=== PATIENT | female | born 1945 | race Caucasian/White ===

== ENCOUNTER 2019-12-08 09:42 | Outpatient (CLI) | payer MEDICARE, SELFPAY ==
--- NOTE | ~2019-12-08 | XR_ITS ---
EXAMINATION: XR chest 2V DATE: 12/08/2019 10:05 INDICATION: Dyspnea. Hypertension. TECHNIQUE: Frontal and lateral views of the chest were obtained. COMPARISON: Chest 2 views 10/19/2015 FINDINGS: The chest demonstrates clear lungs without pneumonia, pleural effusion, or pneumothorax. Th e heart size is normal. There are surgical clips in left upper quadrant. IMPRESSION: 1. No acute cardiopulmonary disease. Reviewed, dictated and finalized at location A.
== END 2019-12-08 09:43 | disposition home or self-care (01) ==
LOC: ANHIMG 09:47
PROVIDERS: PCP Internal Medicine; Visit Provider Internal Medicine
DX: R05 Cough (principal); R06.00 Dyspnea, unspecified; I10 Essential (primary) hypertension
CPT/HCPCS: 71046

== ENCOUNTER 2019-12-11 08:52 | Outpatient (CLI) | payer MEDICARE, SELFPAY ==
--- NOTE | ~2019-12-11 | XR_ITS ---
EXAMINATION: XR UGIAC wo kub DATE: 12/11/2019 09:30 INDICATION: Cough. TECHNIQUE: The patient drank thick barium, gas-producing crystals, and thin barium. A total of 746 fl uoroscopic images of the esophagus, stomach, and proximal small bowel were obtained. Fluoroscopy expo sure time was 2.2 minutes. COMPARISON: None. FINDINGS: The esophagus is normal without mass or stricture. Esophageal motility is normal. Small hia nicol hernia which extends 4-5 cm cephalad to the level of the diaphragm. On oblique prone imaging appe ars to represent either a paraesophageal type or mixed sliding/paraesophageal type. There was an init ial episode of gastroesophageal reflux when changing from prone to supine position of a moderate amou nt of contrast. Additional provocative maneuvers elicited a single additional episode of minimal kelsea roesophageal reflux. Small diverticulum arising from the second portion of the duodenum. The stomach and proximal small bowel are otherwise normal. IMPRESSION: 1. Small likely either paraesophageal or mixed paraesophageal/sliding-type hiatal hernia with gastroe sophageal reflux. Reviewed, dictated and finalized at location A. IMPRESSION: 1. Small likely either paraesophageal or mixed paraesophageal/sliding-type hiat al hernia with gastroesophageal reflux.
== END 2019-12-11 08:53 | disposition home or self-care (01) ==
PROVIDERS: PCP Internal Medicine; Visit Provider Internal Medicine
DX: R05 Cough (principal); K44.9 Diaphragmatic hernia without obstruction or gangrene; K21.9 Gastro-esophageal reflux disease without esophagitis
CPT/HCPCS: 74246

== ENCOUNTER 2019-12-18 09:02 | Outpatient (CLI) | payer MEDICARE, SELFPAY ==
--- NOTE | ~2019-12-18 | MM_ITS ---
EXAMINATION: MM screening zhanna BI w abdoul HISTORY: Screening mammogram TECHNIQUE: Craniocaudal and mediolateral oblique 3-D tomosynthesis images were obtained and synthetic 2-D images were generated. CAD analysis was submitted and interpreted. COMPARISON: 06/03/2014 bilateral digital screening mammogram BREAST PARENCHYMAL COMPOSITION: The breasts are heterogeneously dense, which may obscure small masses . FINDINGS: There are scattered bilateral benign calcifications. Stable mild fibroglandular asymmetry. There is no evidence of suspicious mass, calcification, or architectural distortion to suggest malign charles in either breast. There has been no suspicious interval change. IMPRESSION: 1. No mammographic evidence of malignancy. 2. Recommend routine screening mammography in one year. BI-RADS Category 2: Benign finding(s). Reviewed, dictated and finalized at location A.
== END 2019-12-18 09:03 | disposition home or self-care (01) ==
PROVIDERS: PCP Internal Medicine; Visit Provider Internal Medicine
DX: Z12.31 Encounter for screening mammogram for malignant neoplasm of breast (principal)
CPT/HCPCS: 77063; 77067

== ENCOUNTER 2020-05-04 11:14 | Outpatient (CLI) | payer MEDICARE, SELFPAY ==
--- NOTE | ~2020-05-04 | XR_ITS ---
XR sinus min 3V 05/04/2020 11:43 Indication: Right-sided headaches Procedure: 5 views of the paranasal sinuses Comparison: No prior studies for comparison. Findings: No significant opacification of the paranasal sinuses. No air-fluid levels. Mild leftward n josé septal deviation. Mastoids are pneumatized. Orbits are intact. No definite orbital blowout fract ure. Impression: 1: No significant abnormality of the sinuses. Reviewed, dictated and finalized at location A. Impression: 1: No significant abnormality of the sinuses.
--- NOTE | ~2020-05-04 | XR_ITS ---
EXAMINATION: XR chest 2V 05/04/2020 11:43 INDICATION: Dyspnea PROCEDURE: PA and lateral views of the chest COMPARISON: Comparison to multiple prior studies sequentially, with oldest reviewed study dated 05/13. FINDINGS: The lungs are clear. The cardiomediastinal silhouette is within normal limits. There are no pleural effusions. There is no pneumothorax suspected. IMPRESSION: 1: NO ACUTE CARDIOPULMONARY DISEASE. Reviewed, dictated and finalized at location A.
== END 2020-05-04 11:15 | disposition home or self-care (01) ==
PROVIDERS: PCP Internal Medicine; Visit Provider Internal Medicine
DX: R06.00 Dyspnea, unspecified (principal); R09.81 Nasal congestion
CPT/HCPCS: 70220; 71046

== ENCOUNTER 2020-05-06 08:46 | Outpatient (CLI) | payer MEDICARE, SELFPAY ==
--- NOTE | 2020-05-12 14:19 | WPDPFTINT ---
PFT Interpretation PFT Interpretation: This PFT met all criteria for ATS standards and reproducibility FEV/FVC pre bronchodilator 71% which improved to 78% post bronchodilator FEV1 119% FVC 106% There was some improvement in post bronchodilator FEV1 TLC 109% of predicted RV 114% RV/TLC 43% DLCO 83% when adjusted for alveolar volume but not adjusted for hemoglobin Flow volume loops showed some end expiratory coving Impression: Mild airflow obstruction with reversibility. This may correspond with Asthma. Clinical correlation is advised.
== END 2020-05-06 08:47 | disposition home or self-care (01) ==
LOC: ANHPFT 08:48
PROVIDERS: PCP Internal Medicine; Visit Provider Internal Medicine
DX: R06.00 Dyspnea, unspecified (principal)
CPT/HCPCS: 94060; 94726; 94729

== ENCOUNTER 2020-08-30 02:30 | Outpatient (CLI) | payer MEDICARE, SELFPAY ==
[2020-08-30 18:38] LABS: SARS-CoV-2 RNA PCR Negative
== END 2020-08-30 02:31 | disposition home or self-care (01) ==
LOC: ANHCOVIDDT 02:30
PROVIDERS: PCP Internal Medicine; Visit Provider Internal Medicine Gastroenterology
DX: Z01.812 Encounter for preprocedural laboratory examination (principal); Z20.822 Contact with and (suspected) exposure to COVID-19
CPT/HCPCS: C9803; U0003; U0005

== ENCOUNTER 2020-09-02 02:23 | Day surgery (SDC) | payer MEDICARE, SELFPAY ==
[2020-08-25 10:18] VITALS: BMI 29.4
[2020-09-02 06:35] VITALS: BP 209/74; PULSE 71; RESP 20; TEMP 36.6; O2SAT 98
[2020-09-02] MEDS: LACTATED RINGERS 1,000 ML 150 ML IV CONT (06:54)
[2020-09-02 06:59] VITALS: BMI 30.4
[2020-09-02 07:02] VITALS: BP 171/70; PULSE 68
--- NOTE | 2020-09-02 07:46 | SUR.PREOP ---
Pt took home dose of metoprolol 25mg at [address] Cruz's order.
--- NOTE | 2020-09-02 07:52 | WPDANESEPPF ---
Anes - Initial Pre Proc Eval Procedure: Operation Date: 09/02/20 08:00 Proposed Procedures p Esophagogastroduodenoscopy - Lee Ashton MD Date/Time: 09/02/20 07:52 Surgeon: Lee Ashton MD Pre Op Diagnosis: Dysphagia Patient Data Age: 75 Gender: F Height: 5 ft 2 in Weight: 75.5 kg Last Vital Signs Temp 98 F 09/02/20 06:35 Pulse 68 09/02/20 07:02 Resp 20 09/02/20 06:35 BP 171/70 H 09/02/20 07:02 Pulse Ox 98 09/02/20 06:35 Allergies Allergy/AdvReac Type Severity Reaction Status Date / Time neomycin Allergy Intermediate Rash Verified 09/02/20 06:43 Home Medications Medication Instructions Recorded Confirmed Type cetirizine 10 mg tablet 5 mg PO DAILY PRN 11/30/19 08/25/20 History levothyroxine 50 mcg tablet 50 mcg PO DAILY #90 tablet 12/14/19 08/25/20 Rx meloxicam 15 mg tablet 15 mg PO DAILY #90 tablet 12/28/19 08/25/20 Rx pantoprazole 40 mg tablet,delayed 40 mg PO QAM #90 tablet 05/31/20 08/25/20 Rx release albuterol sulfate 90 mcg/actuation 2 inh INHALATION Q6H PRN #8.5 g 06/21/20 08/25/20 Rx aerosol inhaler metoprolol succinate 25 mg 25 mg PO DAILY #90 tablet 06/21/20 09/02/20 Rx tablet,extended release 24 hr umeclidinium 62.5 mcg-vilanterol 1 inh INHALATION DAILY #14 ea 07/21/20 08/25/20 Rx 25 mcg/actuation powdr for inhalation sucralfate 1 gram tablet 2 g PO BID #120 tablet 08/16/20 08/25/20 Rx azelastine 2 spray NASAL Q12H PRN 08/25/20 08/25/20 History losartan 100 mg PO DAILY 08/25/20 08/25/20 History rosuvastatin 10 mg PO DAILY 08/25/20 08/25/20 History Patient hx anesthesia problems: none Family hx anesthesia problems: none PMFSH Past Medical History Medical History (Updated 08/16/20 @ 11:02 by Jena Garcia [facility]) Benign essential hypertension BMI 29.0-29.9,adult BMI 30.0-30.9,adult Chronic cough Colon cancer screening Constipation Contact dermatitis Cough variant asthma DJD (degenerative joint disease), multiple sites PLATT (dyspnea on exertion) Encounter for Medicare annual wellness exam Encounter for screening mammogram for malignant neoplasm of breast Encounter to establish care Eustachian tube dysfunction Follow up Hyperlipidemia Hypothyroidism (acquired) Mild reactive airways disease On correction drug therapy Paraesophageal hernia Post menopausal syndrome Sliding hiatal hernia Surgical History Surgical History History of hernia surgery Paraesophageal hiatal hernia surgery. 2009 Hx of sinus surgery Family History Family History Mother Family history of lung cancer Dementia Father Family history of emphysema COPD Sibling ASHD (arteriosclerotic heart disease) Hx of myocardial infarction Social History Social History Smoking packs per day: 1.5 Smoking cigarettes per day: 30.0 Years smoked: 10 Smoking pack-years: 15.00 Smoking status: Former smoker Tobacco type: cigarettes Second hand tobacco smoke exposure: No Alcohol intake: never Substance use: never Substance use type: does not use Living arrangements: with family Spiritual care concerns: No Anes - Eval Final PreProcedure Day of Procedure 09/02/20 07:52 Patient weight: overweight Heart: regular rate and rhythm Lungs: clear to auscultation Airway: Mallampati scale class II Neurological: alert and oriented Last oral intake: >/= 8 hours ASA classification: III Emergent: no Anesthetic plan: proceed Anesthesia type and monitoring: general GIVS and standard monitoring Informed Consent: The patient's anesthetic plan and its attendant risks and benefits were discussed with the patient/family/POA. Questions were solicited and answers provided to the satisfaction of the patient/family/POA.
--- NOTE | 2020-09-02 08:08 | WPDGICN ---
Assessment and Plan Assessment and plan (1) Hiatal hernia: Code(s): K44.9 - Diaphragmatic hernia without obstruction or gangrene Status: Acute Assessment and Plan: recent upper GI suggest recurrent hiatal hernia. History of rather large paraesophageal hiatal hernia plan is to evaluate with endoscopy. (2) Epigastric abdominal pain: Code(s): R10.13 - Epigastric pain Status: Acute Assessment and Plan: Patient with epigastric pain along with difficulty swallowing. Plan is for EGD to assess more thoroughly patient does have a history of hiatal hernia repair in the past. Continue proton pump inhibitor. Carafate may supplement this intermittently. Further recommendations (3) History of hernia surgery: Code(s): Z98.890 - Other specified postprocedural states; Z87.19 - Personal history of other diseases of the digestive system Status: Acute GI Consult Note Consult date/time: 09/02/20 08:08 HPI: Alisa Baker is a 75 year old female Seen in evaluation at the request of Dr. Daniels. Patient has a history of paraesophageal hiatal hernia repair 10 years ago. At that time she had a cough and significant reflux. This improved greatly after hiatal hernia repair. Over the last 1 year she has noticed reflux symptoms. Occasional regurgitation. Occasional nausea. Dysphagia with food catching the mid substernal portion of the chest. Since December she is restarted proton pump inhibitor therapy. She had has had significant epigastric pain in over the last several weeks was placed on Carafate. She notices that this is helped her epigastric pain quite dramatically. Repeat barium swallow in December of 2019 revealed recurrent hiatal hernia. Because of persistent epigastric pain and rather significant hiatal hernia in the past follow-up EGD is anticipated at this time. As well as to evaluate her difficulty swallowing. Patient denies any weight loss or bleeding. Past medical history is significant for or diagnosis of asthma. She recently has had a recurrent cough raising the question whether this is asthma or acid reflux. Review of Systems Review of Systems: All systems reviewed & are unremarkable except as noted in HPI and below [facility] Past Medical History Medical History Benign essential hypertension BMI 29.0-29.9,adult BMI 30.0-30.9,adult Chronic cough Colon cancer screening Constipation Contact dermatitis Cough variant asthma DJD (degenerative joint disease), multiple sites PLATT (dyspnea on exertion) Encounter for Medicare annual wellness exam Encounter for screening mammogram for malignant neoplasm of breast Encounter to establish care Eustachian tube dysfunction Follow up Hyperlipidemia Hypothyroidism (acquired) Mild reactive airways disease On fpc drug therapy Paraesophageal hernia Post menopausal syndrome Sliding hiatal hernia Surgical History Surgical History History of hernia surgery Paraesophageal hiatal hernia surgery. 2009 Hx of sinus surgery Family History Family History Mother Family history of lung cancer Dementia Father Family history of emphysema COPD Sibling ASHD (arteriosclerotic heart disease) Hx of myocardial infarction Social History Social History Smoking packs per day: 1.5 Smoking cigarettes per day: 30.0 Years smoked: 10 Smoking pack-years: 15.00 Smoking status: Former smoker Tobacco type: cigarettes Second hand tobacco smoke exposure: No Alcohol intake: never Substance use: never Substance use type: does not use Living arrangements: with family Spiritual care concerns: No Meds Home Medications and Allergies Home Medications Medication Instructions Recorded Confirmed Type cetirizine
[2020-09-02] MEDS: BENZOCAINE (*SP) 60 ML SPRAY CAN (HURRICAINE) 1 SPRAY MUCOUS MEM (08:12)
[2020-09-02 08:19] VITALS: BP 148/76; PULSE 66; RESP 21; O2SAT 93
[2020-09-02 08:29] VITALS: BP 155/77; PULSE 65; RESP 17; O2SAT 94
[2020-09-02 08:39] VITALS: BP 164/79; PULSE 67; RESP 18; O2SAT 95
== END 2020-09-02 08:55 | disposition home or self-care (01) ==
PROVIDERS: Family Provider Family Medicine; PCP Internal Medicine; Visit Provider Internal Medicine Gastroenterology
PROC: 0DJ08ZZ Inspection of Upper Intestinal Tract, Via Natural or Artificial Opening Endoscopic (ICD-10-PCS; CPT 43235; principal; 2020-09-02 08:00)
DX: K44.9 Diaphragmatic hernia without obstruction or gangrene (principal); R10.13 Epigastric pain; R05 Cough; Z87.19 Personal history of other diseases of the digestive system; I10 Essential (primary) hypertension; K59.00 Constipation, unspecified; E78.5 Hyperlipidemia, unspecified; E03.9 Hypothyroidism, unspecified; J45.909 Unspecified asthma, uncomplicated; Z87.891 Personal history of nicotine dependence
CPT/HCPCS: 43235; J2704; J7120

== ENCOUNTER → 2021-02-27 11:53 | Outpatient (CLI) | payer MEDICARE, SELFPAY ==
--- NOTE | ~2021-02-27 | CT_ITS ---
EXAMINATION: CT chest high resolution wo ca DATE: 02/27/2021 12:12 INDICATION: Cough and shortness of breath TECHNIQUE: Computed tomography (CT) of the chest was performed without intravenous contrast. The dose -length product (DLP) was 322.75 mGy-cm. Automated exposure control and iterative reconstruction tech nique were employed. COMPARISON: None FINDINGS: There is moderate emphysema. There is a 4 mm nodule of the left lower lobe on image [address] to the major fissure. Mild dependent atelectasis is noted. There is no pleural effusion or pneum othorax. No pathologically enlarged thoracic lymph nodes are identified. The heart size is normal. Th ere is severe thoracic spondylosis. There is a moderate-sized sliding hiatal hernia. IMPRESSION: 1. Moderate emphysema. 2. Moderate-sized hiatal hernia. 3. 4 mm nodule of the left lower lobe. Consider follow-up CT in 12 months. Reviewed, dictated and finalized at location B.
== END ==
PROVIDERS: PCP Internal Medicine; Visit Provider Internal Medicine
DX: R05 Cough (principal); R06.02 Shortness of breath; J43.9 Emphysema, unspecified; K44.9 Diaphragmatic hernia without obstruction or gangrene; R91.8 Other nonspecific abnormal finding of lung field
CPT/HCPCS: 71250

== ENCOUNTER → 2021-04-28 09:55 | Outpatient (CLI) | payer MEDICARE, SELFPAY ==
--- NOTE | ~2021-04-28 | XR_ITS ---
EXAMINATION: XR thoracic spine 3V DATE: 04/28/2021 10:38 INDICATION: Thoracic back pain TECHNIQUE: AP, lateral and lateral swimmer's views of the thoracic spine were obtained. COMPARISON: 07/21/2014; CT, 02/27/2021 FINDINGS: Bone alignment is normal. There is no fracture. There is moderate loss of intervertebral di sc space height throughout the thoracic spine. The vertebral body heights are maintained. There appea r to be airspace opacities of the left lower lobe. IMPRESSION: 1. Moderate thoracic spondylosis without acute findings or significant interval change. 2. Possible left lower lobe opacities. Correlate for shortness of breath. Reviewed, dictated and finalized at location A.
== END ==
PROVIDERS: PCP Internal Medicine; Visit Provider Internal Medicine
DX: M54.9 Dorsalgia, unspecified (principal); G89.29 Other chronic pain; M47.814 Spondylosis without myelopathy or radiculopathy, thoracic region
CPT/HCPCS: 72072

== ENCOUNTER → 2022-01-11 13:15 | Outpatient (CLI) | payer MEDICARE, SELFPAY ==
--- NOTE | ~2022-01-11 | DEXA_ITS ---
Bone Density Report Name: KATELYNN LUONG Age: 76 Sex: Female Ethnicity: White Date of : 1945 Indication: postmenopausal; screening for osteoporosis; height loss; prior fracture; asthma or emphysema; Referring Provider: DALE POWELL Study: Bone densitometry was performed. Exam Date: January 11, 2022 Accession number: [id number] Bone Density: Region BMD T-score Z-score Classification AP Spine (L1, L2) 0.949 -0.3 2.0 Normal Femoral Neck (Left) 0.682 -1.5 0.6 Osteopenia Total Hip (Left) 0.870 -0.6 1.2 Normal Femoral Neck (Right) 0.631 -2.0 0.1 Osteopenia Total Hip (Right) 0.833 -0.9 0.9 Normal Total Hip Mean 0.852 -0.8 1.1 Normal World Health Organization criteria for BMD impression classify patients as: Normal (T-score at or above -1.0), Osteopenia (T-score between -1.0 and -2.5), or Osteoporosis (T-score at or below -2.5). 10-year Fracture Risk(1): Major Osteoporotic Fracture 19% Hip Fracture 4.2% Reported Risk Factors: [place] (), Neck BMD=0.631, BMI=29.3, previous fracture (1) FRAX(R) Version 3.08. Fracture probability calculated for an untreated patient. Fracture probability may be lower if the patient has received treatment. Previous Exams: Region Exam Age BMD T-score BMD Change BMD Change Date g/cm2 vs Baseline vs Previous AP Spine(L1, L2) 01/11/2022 76 0.949 -0.3 -0.038* 0.018 06/24/2018 73 0.931 -0.4 -0.057* -0.057* 06/03/2014 69 0.988 0.1 Total Hip(Left) 01/11/2022 76 0.870 -0.6 -0.014 -0.007 06/24/2018 73 0.877 -0.5 -0.007 -0.007 06/03/2014 69 0.884 -0.5 Total Hip(Right) 01/11/2022 76 0.833 -0.9 -0.039* -0.011 06/24/2018 73 0.844 -0.8 -0.028* -0.028* 06/03/2014 69 0.871 -0.6 *Denotes significance at 95% confidence level, LSC for AP Spine = 0.022 g/cm2, LSC for Total Hip = 0.027 g/cm2 Clinical Information Provided by Patient: Has had a low trauma fracture Has used the following medications: Vitamin D, Calcium Has the following medical conditions: Asthma or Emphysema Patient maximum height was 64 Menopause Age: 57 Drinks caffeinated beverages Onset of menses at age 14 Number of children 2 Impression: The patient has low bone mass, based on the Right Femoral Neck T-score. The patient has an estimated ten-year risk of hip fracture of 4.2% and an estimated ten-year ri
== END ==
PROVIDERS: PCP Internal Medicine; Visit Provider Internal Medicine
DX: Z78.0 Asymptomatic menopausal state (principal); M85.851 Other specified disorders of bone density and structure, right thigh; M85.852 Other specified disorders of bone density and structure, left thigh
CPT/HCPCS: 77080

== ENCOUNTER → 2022-02-28 13:50 | Outpatient (CLI) | payer MEDICARE, SELFPAY ==
--- NOTE | ~2022-02-28 | XR_ITS ---
XR lumbar spine min 4V DATE: 02/28/2022 14:37 INDICATION: Right hip pain TECHNIQUE: AP, lateral, bilateral oblique views and coned lateral lumbosacral view COMPARISON: 12/31/2011 lumbar spine FINDINGS: Diffuse osteopenia. Mild dextroscoliosis of the lumbar spine. The lumbar and included lower thoracic pedicles are intact. No fracture or bone destruction is detect ed. Moderate degenerative disc disease at L1-2. Severe degenerative disc disease at L2-3 and L3-4 with mild retrolisthesis. Moderate degenerative disc disease at L4-5. L5-S1 interspace appears relatively well preserved. Degenerative changes apophyseal joints of the lower lumbar and lumbosacral area. The sacroiliac joints appear normal. IMPRESSION: Osteopenia Mild dextro scoliosis Multilevel degenerative disc disease, most severe at L2-3 and L3-4, with mild retrolisthesis at these 2 levels Reviewed, dictated and finalized at location B. IMPRESSION: Osteopenia Mild dextro scoliosis Multilevel degenerative disc disease, most severe at L2-3 and L3-4, with mild r etrolisthesis at these 2 levels
--- NOTE | ~2022-02-28 | CT_ITS ---
EXAMINATION:CT diagnostic chest wo con DATE: 02/28/2022 15:07 INDICATION: Solitary pulmonary nodule. TECHNIQUE: Computed tomography (CT) of the chest was performed without intravenous contrast. Automate d exposure control and iterative reconstruction technique were employed. The dose-length product (DLP ) was 77.42 mGy-cm. COMPARISON: Chest CT 02/27/2021 FINDINGS: There is moderate emphysema. There is mild atelectasis bilaterally. There is a stable 4 mm nodule at left major fissure. No pleural effusion. The heart size is normal. No pericardial effusion. There is a moderate-sized sliding hiatal hernia. There is severe thoracic spondylosis. IMPRESSION: 1. Stable 4 mm pulmonary nodule, likely benign. 2. Moderate emphysema. 3. Moderate-sized sliding hiatal hernia. Reviewed, dictated and finalized at location A.
--- NOTE | ~2022-02-28 | XR_ITS ---
XR hip RT min 3V w AP pelvis DATE: 02/28/2022 14:37 INDICATION: Right hip pain TECHNIQUE: AP and lateral views COMPARISON: None FINDINGS: No fracture or dislocation, avascular necrosis or bone destruction of the right hip. Right hip joint space appears relatively well preserved. The pubic symphysis and sacral iliac joints are intact. Degenerative disc disease at L4-5 and L5-S1. IMPRESSION: No significant abnormality right hip. Degenerative disc disease at L4-5 and L5-S1 Reviewed, dictated and finalized at location B.
== END ==
PROVIDERS: PCP Internal Medicine; Visit Provider Internal Medicine
DX: Z12.2 Encounter for screening for malignant neoplasm of respiratory organs (principal); Z87.891 Personal history of nicotine dependence; M47.817 Spondylosis without myelopathy or radiculopathy, lumbosacral region; M41.9 Scoliosis, unspecified; M25.551 Pain in right hip
CPT/HCPCS: 71250; 72110; 73502

== ENCOUNTER 2022-08-27 12:41 | Outpatient (CLI) | payer MEDICARE, SELFPAY ==
--- NOTE | ~2022-08-27 | XR_ITS ---
EXAMINATION: XR chest 2V 08/27/2022 13:01 INDICATION: Dyspnea PROCEDURE: 2 view chest COMPARISON: Comparison to multiple prior studies sequentially, with oldest reviewed study dated 04/2016. FINDINGS: The lungs are clear. The cardiomediastinal silhouette is within normal limits. There are no pleural effusions. There is no pneumothorax suspected. There is a hiatal hernia. IMPRESSION: 1: NO ACUTE CARDIOPULMONARY DISEASE. Reviewed, dictated and finalized at location A. 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
[2022-08-27 13:14] LABS: Basophils Absolute Auto 0.1 K/mm3 (0.0-0.1); Basophils Percent Auto 1.1 % (0.2-1.2); Eosinophils Absolute Auto 0.2 K/mm3 (0-0.3); Eosinophils Percent Auto 2.7 % (0-4.4); Hematocrit 39.4 % (37.0-47.0); Hemoglobin 12.8 g/dL (12.0-15.0); Immature Granulocyte Absolute 0.02 K/mm3 (0.00-0.031); Immature Granulocyte Percent A 0.3 % (0-0.5); Lymphocytes Absolute Auto 1.64 K/mm3 (0.9-3.2); Lymphocytes Percent Auto 22.1 % (18.3-44.2); Mean Corpuscular HGB Conc 32.5 g/dl (32-36); Mean Corpuscular Hemoglobin 31.3 pg (26-34); Mean Corpuscular Volume 96.3 fl (80-100); Mean Platelet Volume 9.2 fl (7.4-10.4); Monocytes Absolute Auto 0.8 K/mm3 (0.1-0.6); Monocytes Percent Auto 10.1 % (2.6-8.5); Neutrophils Absolute Auto 4.7 K/mm3 (1.3-6.7); Neutrophils Percent Auto 63.7 % (45.5-73.1); Platelet Count Result 219 k/mm3 (150-375); Red Blood Count 4.09 M/mm3 (4.2-5.4); Red Cell Distribution Width 12.9 % (11.5-14.5); White Blood Count 7.4 K/mm3 (4.5-10.0)
== END 2022-08-27 12:42 | disposition home or self-care (01) ==
PROVIDERS: PCP Internal Medicine; Visit Provider Internal Medicine
DX: R06.00 Dyspnea, unspecified (principal)
CPT/HCPCS: 36415; 71046; 85025

== ENCOUNTER → 2022-08-30 08:45 | Outpatient (CLI) | payer MEDICARE, SELFPAY ==
--- NOTE | ~2022-08-30 | CT_ITS ---
EXAMINATION: CT sinus wo con DATE: 08/30/2022 09:01 INDICATION: Chronic sinusitis TECHNIQUE: Computed tomography (CT) of the paranasal sinuses was performed without contrast. Iterativ e reconstruction technique was employed. Exam dose: 260.54 mGy-cm total exam DLP. COMPARISON: 05/04/2020 radiographs of paranasal sinuses 01/18/2011 CT sinuses FINDINGS: There is interval postoperative change since 01/18/2011: There are bilateral nasal antral win dows with resection of the uncinate processes. Bilateral partial ethmoidectomies. There is leftward bowing of the nasal septum. The nasal turbinates are moderately prominent in size b ilaterally. Intralamellar cell of left middle nasal turbinate. There is diffuse mild to moderate mucoperiosteal thickening of the right maxillary sinus. There is a fluid level in the left maxillary sinus and minimal mucoperiosteal thickening of the left maxillary s inus. The frontal sinuses and sphenoid sinuses are normally developed and aerated. The mastoid air cells are normally developed and aerated bilaterally. IMPRESSION: Status post bilateral partial ethmoidectomies and nasal antral windows Mild to moderate mucoperiosteal thickening of the right major sinus, minimal mucoperiosteal thickenin g of left maxillary sinus Fluid level in left maxillary sinus Leftward bowing of nasal septum Intralamellar cell of left middle nasal turbinate and prominent soft tissues swelling of the nasal tu rbinates Reviewed, dictated and finalized at Location A. Reviewed, dictated and finalized at location L. 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
== END ==
PROVIDERS: PCP Internal Medicine; Visit Provider Internal Medicine
DX: J32.9 Chronic sinusitis, unspecified (principal); R05.9 Cough, unspecified
CPT/HCPCS: 70486

== ENCOUNTER 2022-10-16 09:00 | Outpatient (NON) | payer MEDICARE, SELFPAY | END 2022-10-16 09:01 | disposition home or self-care (01) | LOC: ANHLAB 10-17 10:09 | PROVIDERS: PCP Internal Medicine; Visit Provider Nurse Practitioner | DX: L81.2 Freckles (principal) | CPT/HCPCS: 88305 ==

== ENCOUNTER 2022-12-21 00:59 | Day surgery (SDC) | payer MEDICARE, SELFPAY ==
[2022-12-04 10:45] VITALS: BMI 29.7
--- NOTE | 2022-12-04 10:53 | PC.NURSE ---
PRE-OP INSTRUCTIONS, PLEASE READ CAREFULLY Report to the Outpatient Waiting Room, entrance under the green pavilion located off [facility], at time _0630_ on date _12/21/22_. Planned Procedure Time: _0830_. Time changes happen often and if your time is changed the preop area will call you the afternoon before. - You and your visitor will be asked to self-screen and do not enter if you have any COVID symptoms. - A mask is optional within the hospital at this time. Patients may have clear liquids (water, carbonated beverages, clear teas, apple juice) until 3 hours prior to surgery (0530 AM) with a maximum of 20 ounces. - No food from midnight until time of surgery Take the following medications with a SIP of water the morning of surgery: _DILTIAZEM, LEVOTHYROXINE, ANORO INHALER, _ DO NOT STOP ANY OF YOUR OTHER PRESCRIPTION MEDICATIONS PRIOR TO SURGERY ?EXCEPT THE FOLLOWING Medications to discontinue - _MELOXICAM PER DR. BARRERA'S INSTRUCTIONS_ Date to take last dose Please no make-up, nail spanish, hairspray, perfume, deodorant, or body powder the day of surgery. No jewelry (including any body piercings) or valuables the day of surgery, leave them at home. Please take a shower or bath the night before, or the morning of, surgery with an antibacterial soap. Wear comfortable, loose fitting clothing. - Jewelry must be removed prior to entering the operating room. Rings and piercings that are not removed may be cut off. - The hospital will not accept responsibility for valuables. - Please leave all valuables, including medications, at home the day of surgery. If you are going home after surgery, a licensed parts driver must drive you home. - NO public transportation without another adult if you receive anesthesia. - We recommend that an adult stay with you for 24 hours following discharge. - We also recommend that you do not drive, make important decision, drink alcoholic beverages, or take any drugs that were not prescribed by your health care provider for at least 24 hours after your discharge time. Follow any additional instructions given to you from your surgeon. If you or anyone in your household have experienced Covid symptoms in the past week, please notify your surgeon or the nurse liaison at the phone number below for possible testing. Telephone instructions given to _PATIENT_and asked if any additional questions and then verbalized understanding. Patient advised to call surgeon office or pre surgery nurse liaison [phone] if any additional questions.
[2022-12-21] VITALS (8 sets, daily range): BP systolic 95–149; BP diastolic 46–62; PULSE 69–85; RESP 12–18; TEMP 36.7–36.8; O2SAT 93–97
--- NOTE | ~2022-12-21 | XR_ITS ---
XR surgery orthopedic Pain management procedure TECHNIQUE: Fluoroscopy used during first metatarsal arthrodesis performed by [Ankit Phillips JR MD] on 12/21/2022. 17 seconds of fluoroscopy with 2 fluoroscopic images captured. FINDINGS: Images demonstrate arthrodesis of the first metatarsophalangeal joint with sideplate and sc rews. There are additional screws at the second metatarsal neck. Correlate with procedure note. IMPRESSION: Fluoroscopy used during first metatarsal arthrodesis. Reviewed, dictated and finalized at location B.
--- NOTE | 2022-12-21 06:49 | WPDANESEPPF ---
Anes - Initial Pre Proc Eval Procedure: Operation Date: 12/21/22 07:30 Proposed Procedures p Arthrodesis First Metatarsal Phalangeal Joint Right Foot, Austyn Shortening Second Metatarsal Osteotomy Right Foot, Reconstruction Angular Deformity Second Toe Right Foot - Ankit Phillips JR, MD Date/Time: 12/21/22 06:49 Surgeon: Ankit Phillips JR, MD Pre Op Diagnosis: (1) Arthritits First MPJ Right Foot Patient Data Age: 77 Gender: F Height: 1.56 m Weight: 70.45 kg Last Vital Signs Temp 36.7 C 12/21/22 06:25 Pulse 85 12/21/22 06:25 Resp 16 12/21/22 06:25 BP 149/56 H 12/21/22 06:25 Pulse Ox 95 12/21/22 06:25 O2 Del Method Room Air 12/21/22 06:25 Allergies Allergy/AdvReac Type Severity Reaction Status Date / Time neomycin Allergy Intermediate Rash Verified 12/21/22 06:38 Home Medications Medication Instructions Recorded Confirmed Type zinc 50 mg tablet 50 mg PO DAILY 01/18/21 12/21/22 History calcium carbonate 600 mg calcium 600 mg PO BID 01/17/22 12/21/22 History (1,500 mg) tablet cholecalciferol (vitamin D3) 10 10 mcg PO BID 01/17/22 12/21/22 History mcg (400 unit) tablet montelukast 10 mg tablet 10 mg PO DAILY #90 tabs 04/11/22 12/21/22 Rx (Singulair) diltiazem HCl 240 mg capsule,24 480 mg PO DAILY #180 caps 08/09/22 12/21/22 Rx hr,extended release losartan 100 mg tablet See Rx Instructions .Route 08/10/22 12/21/22 Rx .COMPLEX #90 tabs pantoprazole 40 mg tablet,delayed See Rx Instructions .Route 08/20/22 12/21/22 Rx release .COMPLEX #90 tabs umeclidinium 62.5 mcg-vilanterol 1 inh inhalation DAILY 90 days 08/22/22 12/21/22 Rx 25 mcg/actuation powdr for #180 ea inhalation (Anoro Ellipta) rosuvastatin 10 mg tablet See Rx Instructions .Route 10/01/22 12/21/22 Rx .COMPLEX #90 tabs azelastine 137 mcg (0.1 %) nasal See Rx Instructions .Route 12/03/22 12/21/22 Rx spray aerosol .COMPLEX #30 mL levothyroxine 50 mcg tablet See Rx Instructions .Route 12/03/22 12/21/22 Rx .COMPLEX #90 tabs meloxicam 15 mg tablet See Rx Instructions .Route 12/03/22 12/21/22 Rx .COMPLEX #90 tabs Home Nebulizer machine #1 ea 12/12/22 Rx albuterol sulfate 2.5 mg/3 mL 2.5 mg (3 mL) inhalation Q6H PRN 12/12/22 12/21/22 Rx (0.083 %) solution for nebulization Wheezing #90 mL Patient hx anesthesia problems: none Family hx anesthesia problems: none Results Review: All pre-operative results and documents have been reviewed as part of the pre-operative evaluation. [facility] Past Medical History Medical History Actinic keratosis Anxiety attack Benign essential hypertension BMI 29.0-29.9,adult BMI 30.0-30.9,adult Cerumen impaction Chronic bronchitis Chronic cough Chronic maxillary sinusitis Colon cancer screening Contact dermatitis Cough variant asthma Dermatitis Dietary counseling and surveillance (06/21/15) Dizziness DJD (degenerative joint disease), multiple sites PLATT (dyspnea on exertion) Dysfunction of both eustachian tubes Encounter for Medicare annual wellness exam Encounter for screening for lipoid disorders Essential (primary) hypertension Eustachian tube dysfunction Expiratory wheezing Follow up Hyperlipidemia Hypothyroidism (acquired) Hypothyroidism, unspecified Impacted cerumen of left ear Low back pain Lung nodule Lymphadenopathy of head and neck Needs flu shot On prison drug therapy Otalgia of both ears Paraesophageal hernia Post menopausal syndrome Post-menopausal Right hand pain Seasonal allergies Sliding hiatal hernia Thoracic spondylosis Vitamin D deficiency, unspecified Surgical History Surgical History History of hernia surgery Paraesophageal hiatal hernia surgery. 2009 Hx of sinus surgery Family History Family History Mother Family history of lung cancer Dementia
[2022-12-21] MEDS: LACTATED RINGERS 1,000 ML 30 ML IV CONT ×2 (06:52→09:16)
--- NOTE | 2022-12-21 07:19 | WPDHPUPDATE1 ---
History and Physical Update Update Date/Time: 12/21/22 07:19 History and Physical has been reviewed, including an updated exam of the patient. There are NO changes in the patient's condition. Risks, benefits, and alternatives have been discussed and questions answered. Patient agrees to proceed with procedure.
--- NOTE | 2022-12-21 07:26 | WPDANESPNB ---
Anes - Peripheral Nerve Block Date/Time: 12/21/22 07:26 I have discussed with the patient/family/POA the placement of a peripheral nerve block for post-operative pain management, including associated risks, benefits, complications, and side effects. Alternative methods of post-operative analgesia were detailed. Questions were solicited and answers provided to the satisfaction of the patient/family/POA. Time-Out: A pre-procedural Time-Out was completed immediately before starting the procedure and confirmed: Patient Identification, Site, Procedure, Patient Position and the Availability of Requisite Equipment. Clinical Indications: Acute post-operative pain management requested by the operative surgeon. Nerve Block Insertion Note Anes-nerve block: posterior fossa sciatic right and other (saphenous) Patient position: supine Skin prep: chlorhexidine Needle: 22 gauge, stimulating, insulated echogenic needle. Needle length: 80 mm Technique: nerve stimulation lost at (mA) (0.35) Injectate: bupivacaine 0.5% with epi 5 mcg/ml (25cc no epi popliteal 7 cc saphenous) and dexamethasone (mg) (8) Observations: tolerated well Complications: none Procedure start time:: 718 Procedure end time:: 724
[2022-12-21] MEDS: ceFAZolin 2 GM/D5W 50 ML 2 GM/50 ML BAG IVPB (07:30)
--- NOTE | 2022-12-21 09:09 | W.PM.PROC2 ---
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 Arthrodesis of the first metatarsal phalangeal joint right foot 2. Austyn Shortening second metatarsal osteotomy right foot Surgeon Ankit Phillips JR, ROCIO Anesthesia General and Regional Indications Painful right forefoot Findings Very soft bone present to the first metatarsal phalangeal joint Description of Procedure PROCEDURE IN DETAIL: Under mild sedation, the patient was brought into the operating room, placed on the operating table in supine position. A pneumatic ankle tourniquet was placed about the patient's ipsilateral ankle. Following general anesthesia and a popliteal fossa block, the foot was then scrubbed, prepped, and draped in the usual aseptic manner. An Esmarch bandage was then used to exsanguinate the patient's foot and the pneumatic ankle tourniquet was then inflated. Surgery began in the following manner: Attention was directed to the dorsal aspect of the 1st metatarsophalangeal joint where the hallux was noted to be laterally deviated with abutment against the second digit. There was significant rigidity to the first metatarsal phalangeal joint as the hallux was scarred in an abducted position. I made a linear l incision over the first metatarsal phalangeal joint The incision was continued deep down through the subcutaneous tissues using sharp and blunt dissection. All bleeders were cauterized as necessary. At this point, the dissection was continued down to the level of the periosteum and capsular structures overlying the 1st metatarsophalangeal joint. A full length periosteum and capsular incision was made just medial to the extensor hallucis longus tendon. The periosteum and capsular structures were freed from the base of the proximal phalanx as well as the distal 1st metatarsal. At this point, the 1st metatarsophalangeal joint was noted to be severely hypertrophied and also with almost complete denudation of cartilage that was degenerative. All hypertrophic bone was resected and smoothed out with a power bur. Next, I utilized the reamer system for the [place] 28 first metatarsal phalangeal joint to prepare and shape the distal metatarsal and base of the proximal phalanx in a cup and cone fashion. I flushed the area thoroughly with copious amounts of sterile saline. Next, a 2-0 drill bit was used to further fenestrate the distal 1st metatarsal as well as the base of the proximal phalanx in order to allow fusion across the 1st metatarsophalangeal joint. The bone was very soft and had poor perfusion. I decided to pack the joint with [place] 28 DBM. A large steel plate was used to make sure that the hallux was in a rectus position both in the sagittal plane as well as the frontal plane. Excellent position of the hallux was noted. Next, a [place] 28 small 1st metatarsal phalangeal joint was placed atop the 1st metatarsophalangeal joint held in position with [place] wires. Utilizing standard principles and techniques, the 2 distal drill holes were drilled and two 2.7 mm fully-threaded locking screws were driven from dorsal to plantar holding the distal aspect of the plate intact, during implantation of the distal lateral screw a fracture of the proximal phalanx developed due to the torque involved with the screw fixation. This was manually reduced and the locking screw was used to hold the fracture fragment adequately. At this point, the [place] compression system was utilized to drill eccentrically along the proximal dynamic screw hole, I implanted a 3.5mm non locking screw from dorsal to planar, prior to complete engagement of the screw to the plate the olive wires and the temporary fixation was removed and the screw fully driven to engage the plate. Excellent compression was noted intraoperatively and
== END 2022-12-21 10:56 | disposition home or self-care (01) ==
PROVIDERS: PCP Internal Medicine; Visit Provider Podiatrist Foot & Ankle Surgery
PROC: (CPT 28750; principal; 2022-12-21 07:30)
DX: M19.071 Primary osteoarthritis, right ankle and foot (principal); M24.477 Recurrent dislocation, right toe(s); G89.18 Other acute postprocedural pain; I10 Essential (primary) hypertension; J45.909 Unspecified asthma, uncomplicated; E78.5 Hyperlipidemia, unspecified; E03.9 Hypothyroidism, unspecified; E55.9 Vitamin D deficiency, unspecified; Z87.891 Personal history of nicotine dependence; Z79.51 Long term (current) use of inhaled steroids
CPT/HCPCS: 28750; 28308; 64450; 64445; 99199; J0690; J1100; J1170; J2250; J2405; J2704; J3010; J7120

== ENCOUNTER → 2023-09-03 08:56 | Outpatient (CLI) | payer MEDICARE, SELFPAY ==
--- NOTE | ~2023-09-03 | CT_ITS ---
EXAMINATION: CT diagnostic chest wo con DATE: 09/03/2023 09:13 INDICATION: Personal history of nicotine dependence TECHNIQUE: Computed tomography (CT) of the chest was performed without intravenous contrast. The dose -length product was 83.88 mGy-cm. Automated exposure control and iterative reconstruction technique w ere employed. COMPARISON: CT dated 02/28/2022 FINDINGS: Moderate size hiatal hernia. There is atherosclerosis of the aorta and coronary arteries. N o significant pleural or pericardial effusion. No thoracic lymphadenopathy. There is severe emphysema . There is dependent atelectasis. There is a 5 mm lingular nodule, image 79, not definitely seen on p rior examination. No endobronchial lesions. Moderate thoracic spondylosis. No significant soft tissue abnormality. No thoracic lymphadenopathy. The upper abdomen is unremarkable. IMPRESSION: 1. Lingular nodule measuring 5 mm, new since prior examination. Follow-up six-month interval CT chest recommended. 2: Moderate hiatal hernia. Reviewed, dictated and finalized at location L. NG MACHINE OPERATOR DOUBLE END IMPRESSION: 1. Lingular nodule measuring 5 mm, new since prior examination. Follow-up six-m onth interval CT chest recommended. 2: Moderate hiatal hernia.
== END ==
PROVIDERS: PCP Internal Medicine; Visit Provider Internal Medicine
DX: R91.1 Solitary pulmonary nodule (principal); K44.9 Diaphragmatic hernia without obstruction or gangrene; Z87.891 Personal history of nicotine dependence
CPT/HCPCS: 71250

== ENCOUNTER 2023-09-12 08:11 | Outpatient (CLI) | payer MEDICARE, SELFPAY ==
--- NOTE | ~2023-09-12 | MM_ITS ---
EXAMINATION: MM screening zhanna BI w abdoul HISTORY: Screening TECHNIQUE: Craniocaudal and mediolateral oblique 3-D tomosynthesis images were obtained and synthetic 2-D images were generated. CAD analysis was submitted and interpreted. COMPARISON: Comparison to multiple prior studies sequentially, with oldest reviewed study dated 05/13. BREAST PARENCHYMAL COMPOSITION: Dense: The breasts are heterogeneously dense, which may obscure small masses FINDINGS: Bilateral breast asymmetries and calcifications are stable. There is no evidence of suspici ous mass, calcification, or architectural distortion to suggest malignancy in either breast. There sánchez s been no suspicious interval change. IMPRESSION: 1. No mammographic evidence of malignancy. 2. Recommend routine screening mammography in one year. BI-RADS Category 2: Benign finding(s). Reviewed, dictated and finalized at location A. ET TAKER FERRYBOAT
== END 2023-09-12 08:12 | disposition home or self-care (01) ==
LOC: ANHIMG 08:14
PROVIDERS: PCP Internal Medicine; Visit Provider Internal Medicine
DX: Z12.31 Encounter for screening mammogram for malignant neoplasm of breast (principal)
CPT/HCPCS: 77063; 77067

== ENCOUNTER → 2023-10-08 11:05 | Outpatient (CLI) | payer MEDICARE, SELFPAY ==
--- NOTE | ~2023-10-08 | MR_ITS ---
EXAMINATION: MR brain/brain stem wo/w con DATE: 10/08/2023 12:03 INDICATION: Trigeminal neuralgia. TECHNIQUE: Magnetic resonance imaging (MRI) of the brain and brainstem was performed without and with 15 mL MultiHance intravenous contrast. COMPARISON: CT sinuses 08/30/22. FINDINGS: There is no intracranial hemorrhage, acute infarction, or abnormal intracranial mass lesion . The ventricles are normal in size. There is minimal mucosal thickening in the paranasal sinuses. Th ere are likely changes of ocular lens replacement surgeries. The trigeminal nerves are normal. No vas cular loop compression. There are trace mastoid effusions. IMPRESSION: 1. Normal brain. Normal trigeminal nerves. No vascular loop compression. Reviewed, dictated and finalized at location A. ESALE ACCOUNT MANAGER
== END ==
PROVIDERS: PCP Internal Medicine; Visit Provider Internal Medicine
DX: G50.0 Trigeminal neuralgia (principal)
CPT/HCPCS: 70553; A9577

== ENCOUNTER 2024-02-20 01:15 | Day surgery (SDC) | payer MEDICARE, SELFPAY ==
--- NOTE | 2024-02-20 12:29 | WPDANESEPPF ---
Anes - Initial Pre Proc Eval Procedure: Operation Date: 02/20/24 13:30 Proposed Procedures p Colonoscopy - Nasir Del Cid MD Date/Time: 02/20/24 12:29 Surgeon: Nasir Del Cid MD Pre Op Diagnosis: Other fecal abnormalities Patient Data Age: 78 Gender: F Height: Weight: Allergies Allergy/AdvReac Type Severity Reaction Status Date / Time neomycin Allergy Intermediate Rash Verified 02/20/24 12:28 Home Medications Medication Instructions Recorded Confirmed Type zinc 50 mg tablet 50 mg PO DAILY 01/18/21 02/06/24 History calcium carbonate 600 mg PO BID 01/17/22 02/06/24 History cholecalciferol (vitamin D3) 10 10 mcg PO BID 01/17/22 02/06/24 History mcg (400 unit) tablet azelastine 137 mcg (0.1 %) nasal See Rx Instructions .Route 12/03/22 02/06/24 Rx spray .COMPLEX #30 mL Home Nebulizer machine #1 ea 12/12/22 02/06/24 Rx albuterol sulfate 90 mcg/actuation 1 puff inhalation Q4H PRN 06/03/23 02/06/24 Rx aerosol inhaler shortness of breath or wheezing #6.7 grams pantoprazole 40 mg tablet,delayed See Rx Instructions .Route 08/23/23 02/06/24 Rx release .COMPLEX #90 tabs hyxvxmnznek-eiclgsdmw-pfc C-Mn 100 cap PO DAILY #90 caps 08/29/23 02/06/24 Rx capsule (Glucosamine-Chondroitin Complex capsule) umeclidinium 62.5 mcg-vilanterol 1 inh inhalation DAILY please d/c 09/05/23 02/06/24 Rx 25 mcg/actuation powdr for trelegy 90 days #180 ea inhalation (Anoro Ellipta) hydrochlorothiazide 12.5 mg tablet 12.5 mg PO DAILY #90 tabs 10/07/23 02/06/24 Rx budesonide 0.25 mg/2 mL suspension See Rx Instructions .Route 10/14/23 02/06/24 Rx for nebulization .COMPLEX #60 mL rosuvastatin 10 mg tablet See Rx Instructions .Route 11/04/23 02/06/24 Rx .COMPLEX #90 tabs levothyroxine 50 mcg tablet See Rx Instructions .Route 12/02/23 02/06/24 Rx .COMPLEX #90 tabs nortriptyline 25 mg capsule 25 mg PO QHS #30 caps 12/10/23 02/06/24 Rx albuterol sulfate 2.5 mg/3 mL 2.5 mg (3 mL) inhalation Q6H PRN 01/17/24 02/06/24 Rx (0.083 %) solution for nebulization copd #90 mL losartan 100 mg tablet See Rx Instructions .Route 01/17/24 02/06/24 Rx .COMPLEX #90 tabs meloxicam 15 mg tablet See Rx Instructions .Route 01/17/24 02/06/24 Rx .COMPLEX #90 tabs diltiazem HCl 240 mg capsule,24 See Rx Instructions .Route 01/27/24 02/06/24 Rx hr,extended release .COMPLEX #180 caps Patient hx anesthesia problems: none Family hx anesthesia problems: none Results Review: All pre-operative results and documents have been reviewed as part of the pre-operative evaluation. [facility] Past Medical History Medical History Abnormal CT scan, sinus Actinic keratosis Anxiety attack Benign essential hypertension BMI 28.0-28.9,adult BMI 29.0-29.9,adult BMI 30.0-30.9,adult Cerumen impaction Change in heart murmur Chronic bronchitis Chronic cough Chronic maxillary sinusitis Colon cancer screening Contact dermatitis Cough variant asthma Dermatitis Dietary counseling and surveillance (06/21/15) Dizziness DJD (degenerative joint disease), multiple sites PLATT (dyspnea on exertion) Dysfunction of both eustachian tubes Encounter for Medicare annual wellness exam Encounter for routine adult health examination with abnormal findings Encounter for routine adult health examination without abnormal findings Encounter for screening for lipoid disorders Essential (primary) hypertension Eustachian tube dysfunction Expiratory wheezing Follow up Hyperlipidemia Hypothyroidism (acquired) Hypothyroidism, unspecified Impacted cerumen of left ear Low back pain Lung nodule Lymphadenopathy of head and neck Needs flu shot 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
[2024-02-20 12:30] VITALS: BMI 28.9
[2024-02-20 12:32] VITALS: BP 139/63; PULSE 78; RESP 20; TEMP 36.3; O2SAT 94
[2024-02-20] MEDS: LACTATED RINGERS 1,000 ML 150 ML IV CONT (12:40)
--- NOTE | 2024-02-20 12:52 | PM.HPGS ---
History of Present Illness History of Present Illness Consent: Risks, benefits, and alternatives have been discussed and questions answered. Patient agrees to proceed with procedure. Chief complaint: Other fecal abnormalities Narrative: Alisa Baker is a 78 year old female here with + cologuard, had colonoscopy but years ago Review of Systems Review of Systems: All systems reviewed & are unremarkable except as noted in HPI and below PMFSH Past Medical History Medical History Abnormal CT scan, sinus Actinic keratosis Anxiety attack Benign essential hypertension BMI 28.0-28.9,adult BMI 29.0-29.9,adult BMI 30.0-30.9,adult Cerumen impaction Change in heart murmur Chronic bronchitis Chronic cough Chronic maxillary sinusitis Colon cancer screening Contact dermatitis Cough variant asthma Dermatitis Dietary counseling and surveillance (06/21/15) Dizziness DJD (degenerative joint disease), multiple sites PLATT (dyspnea on exertion) Dysfunction of both eustachian tubes Encounter for Medicare annual wellness exam Encounter for routine adult health examination with abnormal findings Encounter for routine adult health examination without abnormal findings Encounter for screening for lipoid disorders Essential (primary) hypertension Eustachian tube dysfunction Expiratory wheezing Follow up Hyperlipidemia Hypothyroidism (acquired) Hypothyroidism, unspecified Impacted cerumen of left ear Low back pain Lung nodule Lymphadenopathy of head and neck Needs flu shot On usp drug 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 2010 Hx of sinus surgery S/P bunionectomy S/P foot surgery, right Family History Family History Mother Family history of lung cancer Dementia Father Family history of emphysema COPD Asthma Sibling ASHD (arteriosclerotic heart disease) Hx of myocardial infarction Heart disease Social History Social History Smoking packs per day: 2 Smoking cigarettes per day: 40.0 Years smoked: 10 Smoking pack-years: 20.00 Smoking status: Former smoker Tobacco type: cigarettes Second hand tobacco smoke exposure: No Additional smoking assessment comments: QUIT 1992~ Alcohol intake: never Substance use: never Substance use type: does not use Lack of Transportation: No Lack of Food: Never True Current Housing: I Have Housing Concerned About Future Housing: No Difficulty Paying Gas/Electric Bills: No Difficulty Paying for Meds: No Currently Unemployed: No Education: High School Diploma/GED Difficulty w/ Childcare or Family Care: No Living arrangements: with family Gender identity (if verbalized by the patient): Female Spiritual care concerns: No Meds Home Medications and Allergies Home Medications Medication Instructions Recorded Confirmed Type zinc 50 mg tablet 50 mg PO DAILY 01/18/21 02/06/24 History calcium carbonate 600 mg PO BID 01/17/22 02/06/24 History cholecalciferol (vitamin D3) 10 10 mcg PO BID 01/17/22 02/06/24 History mcg (400 unit) tablet azelastine 137 mcg (0.1 %) nasal See Rx Instructions .Route 12/03/22 02/06/24 Rx spray .COMPLEX #30 mL Home Nebulizer machine #1 ea 12/12/22 02/06/24 Rx albuterol sulfate 90 mcg/actuation 1 puff inhalation Q4H PRN 06/03/23 02/06/24 Rx aerosol inhaler shortness of breath or wheezing #6.7 grams pantoprazole 40 mg tablet,delayed See Rx Instru
[2024-02-20 13:25] VITALS: BP 99/41; PULSE 57; RESP 18; O2SAT 94
[2024-02-20 13:35] VITALS: BP 107/54; PULSE 59; RESP 16; O2SAT 99
[2024-02-20 13:45] VITALS: BP 122/61; PULSE 60; RESP 20; O2SAT 100
== END 2024-02-20 13:52 | disposition home or self-care (01) ==
PROVIDERS: PCP Internal Medicine; Visit Provider Internal Medicine Gastroenterology
PROC: 0DJD8ZZ Inspection of Lower Intestinal Tract, Via Natural or Artificial Opening Endoscopic (ICD-10-PCS; CPT 45378; principal; 2024-02-20 13:30)
DX: D12.3 Benign neoplasm of transverse colon (principal); K63.5 Polyp of colon; I10 Essential (primary) hypertension; E78.5 Hyperlipidemia, unspecified; E03.9 Hypothyroidism, unspecified; R73.03 Prediabetes; R05.3 Chronic cough; J32.0 Chronic maxillary sinusitis; J45.909 Unspecified asthma, uncomplicated; M43.04 Spondylolysis, thoracic region; L57.0 Actinic keratosis; E55.9 Vitamin D deficiency, unspecified; Z79.51 Long term (current) use of inhaled steroids; Z98.890 Other specified postprocedural states; Z87.891 Personal history of nicotine dependence; Z80.1 Family history of malignant neoplasm of trachea, bronchus and lung; Z82.49 Family history of ischemic heart disease and other diseases of the circulatory system
CPT/HCPCS: 45380; 45385; 88305; J7120

== ENCOUNTER 2024-03-12 08:11 | Outpatient (CLI) | payer MEDICARE, SELFPAY ==
--- NOTE | ~2024-03-12 | CT_ITS ---
CT Scan of the Chest without Contrast: Clinical Indication: Pulmonary nodule Technique: Contiguous sections were acquired throughout the chest without intravenous contrast. Dose reduction technique was used on this scan by utilizing automated exposure control and iterative recon struction technique. The dose-length product (DLP) was 87.70 mGy-cm. COMPARISON: 09/03/2023 Findings: There is no evidence of any significant mediastinal, hilar or axillary lymphadenopathy. The mediastin al soft tissues appear normal. There is no evidence of pleural or pericardial effusion. Stable lingular nodule, likely focal scarring. No other pulmonary nodule seen. Mild to moderate upper lobe emphysema present. Images through the upper abdomen reveal [id number] hiatal hernia. Impression: Stable lingular nodule, likely focal scarring. Mild to moderate upper lobe emphysema. Reviewed, dictated and finalized at [facility]. Impression: Stable lingular nodule, likely focal scarring. Mild to moderate upper lobe emphysema.
== END 2024-03-12 08:12 ==
PROVIDERS: PCP Internal Medicine; Visit Provider Internal Medicine
DX: R91.1 Solitary pulmonary nodule (principal); J43.9 Emphysema, unspecified
CPT/HCPCS: 71250

== ENCOUNTER 2024-10-08 10:17 | Outpatient (CLI) | payer MEDICARE, SELFPAY ==
[2024-10-08 10:41] LABS: Basophils Percent Auto 0.8 % (0.2-1.2); Eosinophils Percent Auto 0.8 % (0-4.4); Hematocrit 38.3 % (37.0-47.0); Hemoglobin 12.6 g/dL (12.0-15.0); Immature Granulocyte Absolute 0.01 K/mm3 (0.00-0.031); Immature Granulocyte Percent A 0.3 % (0-0.5); Lymphocytes Absolute Auto 1.08 K/mm3 (0.9-3.2); Lymphocytes Percent Auto 29.6 % (18.3-44.2); Mean Corpuscular HGB Conc 32.9 g/dl (32-36); Mean Corpuscular Hemoglobin 31.2 pg (26-34); Mean Corpuscular Volume 94.8 fl (80-100); Mean Platelet Volume 8.7 fl (7.4-10.4); Monocytes Absolute Auto 0.6 K/mm3 (0.1-0.6); Monocytes Percent Auto 17.5 % (2.6-8.5); Neutrophils Absolute Auto 1.9 K/mm3 (1.3-6.7); Platelet Count Result 181 k/mm3 (150-375); Red Blood Count 4.04 M/mm3 (4.2-5.4); Red Cell Distribution Width 12.8 % (11.5-14.5); White Blood Count 3.7 K/mm3 (4.5-10.0)
[2024-10-08 11:18] LABS: Influenza A QL RT-PCR Positive (Negative); Influenza B QL RT-PCR Negative (Negative); RSV RNA, RT-PCR Negative (Negative); SARS-CoV-2 RNA PCR Negative (Negative)
== END 2024-10-08 10:18 | disposition home or self-care (01) ==
PROVIDERS: PCP Internal Medicine; Visit Provider Internal Medicine
DX: R05.9 Cough, unspecified (principal); R50.9 Fever, unspecified; R68.89 Other general symptoms and signs
CPT/HCPCS: 36415; 71046; 85025; 87637

== ENCOUNTER 2024-12-02 13:16 | Outpatient (CLI) | payer MEDICARE, SELFPAY ==
--- NOTE | ~2024-12-02 | CT_ITS ---
CT Scan of the Chest without Contrast: Clinical Indication: Cough Technique: Contiguous sections were acquired throughout the chest without intravenous contrast. Dose reduction technique was used on this scan by utilizing automated exposure control and iterative recon struction technique. The dose-length product (DLP) was 217.50 mGy-cm. COMPARISON: 03/12/2024 Findings: There is no evidence of any significant mediastinal, hilar or axillary lymphadenopathy. The mediastin al soft tissues appear normal. There is no evidence of pleural or pericardial effusion. The lungs are clear. No pulmonary nodules or infiltrates are noted. Moderate to advanced emphysema. Images through the upper abdomen reveal moderate hiatal hernia. Impression: Moderate to advanced emphysema. Moderate hiatal hernia. Reviewed, dictated and finalized at location . Impression: Moderate to advanced emphysema. Moderate hiatal hernia.
== END 2024-12-02 13:17 | disposition home or self-care (01) ==
LOC: GOSHIMG 13:17
PROVIDERS: PCP Internal Medicine; Visit Provider Internal Medicine
DX: J43.9 Emphysema, unspecified (principal); K44.9 Diaphragmatic hernia without obstruction or gangrene; J42 Unspecified chronic bronchitis
CPT/HCPCS: 71250

== ENCOUNTER 2025-05-26 13:47 | Outpatient (CLI) | payer MEDICARE, SELFPAY ==
--- NOTE | ~2025-05-26 | XR_ITS ---
MODIFIED ESOPHAGRAM HISTORY: Dysphagia. TECHNIQUE: Modified barium esophagram was performed on 05/26/2025. I administered fluoroscopy and performed the exam with speech pathologist. Patient was seated for lateral fluoroscopic imaging for ingestion of thin liquids, pudding, solids and quantified amounts, followed by thin liquids in uncontrolled amounts. This was recorded on tape. A single fluoroscopic spot image was also recorded. The DAP for this procedure was 1.407 Gycm2. The amount of fluoroscopy time used during this procedure was 2.2 minutes. FINDINGS: Oral stage: Adequate function. Pharyngeal stage: Adequate function. Cervical/esophageal stage: Adequate function. IMPRESSION: Patient tolerated regular consistency oral feedings in the upright position. Please correlate with speech pathologist findings and specific feeding recommendations. Reviewed, dictated and finalized at location A. IMPRESSION: Patient tolerated regular consistency oral feedings in the upright position. Please correlate with speech pathologist findings and specific feedi ng recommendations.
--- NOTE | 2025-05-26 15:00 | REHSTMBS ---
Assessment and note entered by Maria Del Carmen Guillen, INSPECTOR [employer]UMIN[employer]AT Modified Barium Swallow Evaluation Feeding Type Recommended Oral Food Consistency Regular, Level 7 Liquid Consistency Thin (0) ST Clinical Summary The patient is an 80-year-old female who is referred for a modified barium swallow study due to reported persistent cough, thickness in the throat, and hoarse vocal quality. Patient states that she experiences the cough with and without PO intake. She reports symptoms has been ongoing for the past year, although worsened approximately 3 months ago. The patient medical history is significant for COPD and asthma. Patient reports she changed medication for her asthma in February. Patient denies history of pneumonia or bronchitis. The patient was positioned in a lateral view and presented the following consistencies: 5cc thin liquid, cup trails thin liquid, pudding mixed with barium paste, and cracker coated with barium paste. Oral phase: When presented 5cc thin liquid, thin liquid via cup sip, pudding mixed with barium paste, and cracker coated with barium paste oral preparation and transit was within functional limits. Pharyngeal phase: When presented all of the above consistencies, swallow initiation was timely without viewed aspiration or penetration. The pudding and cracker trials was viewed to have trace residue in the pyriform sinus. Important to note patient did have two episodes of coughing throughout administration of PO trials, although no penetration or aspiration was observed. Overall , patient demonstrated a safe and efficient swallow on all consistencies. Patient may benefit from ENT consult considering ongoing cough and change in vocal quality. Recommend: 1) Regular Diet: Level 7 and 2) Thin Liquids: Level 0 3) Patient may benefit from ENT consult considering ongoing cough and change in vocal quality
--- OUTSIDE RECORDS SUMMARY | 2025-05-26 16:01 | XMS_ITS | Clinical Summary ---
Author Organization [facility] Address [address] [facility] [place] [place] [address] Care Team Providers Care Medical Imaging Director Name Role Phone Octavio Daniels MD Primary Care Provider [phone] Source Comments [facility],non-owned Affiliates and Associated Physician Practices is amultiple site organization consisting of ambulatory clinics and hospital sitesin [place], [place], [place] and [place]. This disclosure is being madepursuant to the Care Everywhere program and may not contain all information available regarding this patient. Last updated 18.[facility] Allergies Active Allergy Reactions Criticality Noted Date Comments Neomycin Rash Medium 03/06/2018 Medications * Be aware that medications may not be up to date on this document. Alwaysverify current medications with the patient. 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 Gender Identity Not on file Sexual Orientation Not on file Last Filed Vital Signs Vital Sign Reading Time Taken Comments Blood Pressure 120/88 03/06/2018 4:18 PM CDT Pulse 71 03/06/2018 4:18 PM CDT Temperature 37.2 C (98.9 F) 03/06/2018 4:18 PM CDT Respiratory Rate 16 03/06/2018 4:18 PM CDT Oxygen Saturation 96% 03/06/2018 4:18 PM CDT Inhaled Oxygen Concentration - - Weight 47.6 kg (105 lb) 03/06/2018 4:18 PM CDT Height 157.5 cm (5' 2) 03/06/2018 4:18 PM CDT Body Mass Index 19.2 03/06/2018 4:18 PM CDT Plan of Treatment Health Maintenance Due Date Last Done Comments BONE DENSITY TESTING 1945 MEDICARE AWV 12 MONTHS 1945 HEPATITIS C SCREENING 05/08/1965 DTAP/TDAP/TD VACCINES (1 - Tdap) 1966 PNEUMOCOCCAL VACCINE 50+ (1 of 1 - PCV) 1997 ZOSTER VACCINE (1 of 2) 1997 Respiratory Syncytial Virus (RSV) Vaccine Pt: or over 60 yrs (1 - 1-dose 75+ series) 2022 DEPRESSION SCREENING 08/12/2024 COVID-19 VACCINE (1 - 2023-2 5 season) 2025 INFLUENZA VACCINE (#1) 2025 HEPATITIS B VACCINE Aged Out No longe r eligible based on patient's age to complete this topic HIB VACCINE Aged Out No longer eligi ble based on patient's age to complete this topic HPV VACCINE Aged Out No longer eligi ble based on patient's age to complete this topic MENINGOCOCCAL (Group B) VACC INE SHARED DECISION-MAKING Aged Out No longer eligibl e based on patient's age to complete this topic MENINGOCOCCAL GROUPS A/C/Y/W VACCINE Aged Out No longer eligible b ased on patient's age to complete this topic Insurance MEDICARE MEDICARE MEDICARE * Guarantor: KATELYNN BAKER Account Type Relation to Patient Date of Phone Billing Address Personal/Family [address] [place] [address] MEDICARE [facility] * Guarantor: KATELYNN BAKER Account Type Relation to Patient Date of Phone Billing Address Personal/Family [address] [place] [address] MEDICARE [facility] * Guarantor: KATELYNN BAKER Account Type Relation to Patient Date of Phone Billing Address Personal/Family [address] [place] [address] MEDICARE ANTHEM Member Subscriber Plan / Payer (Ef fective for All Dates) Name:Katelynn Baker Member ID:Not on file Relation to Subscriber:Self Name:Katelynn Baker Subscriber ID:Not on file Payer ID:[id number] (NAIC) Type:Commercial Address: [place] [phone] Care Teams Medical Imaging Director Relationship Specialty Start Date End Date Octavio Daniels MD [address] [place] [address] PCP - General 10/30/22
--- OUTSIDE RECORDS SUMMARY | 2025-05-26 16:01 | XMS_ITS | Clinical Summary ---
Author Organization [facility] [address] Address [address] [place] [address] Care Team Providers Care Vegetables Cook Name Role Phone Octavio Powell MD Primary Care Provider Allergies Active Allergy Reactions Criticality Noted Date Comments Neomycin Rash Medium 08/11/2018 Niacin Medications levothyroxine sodium (TIROSINT) 50 mcg capsule take 1 capsule by oral route every day 0 0 6 Active meloxicam (MOBIC) 15 mg tablet Take 1 tablet by mouth daily. 0 8 Active metoprolol XL (TOPROL-XL) 25 mg 24 hr tablet TAKE 1 TABLET BY MOUTH ONCE DAILY 90 tablet 3 9 Active terbinafine (LamiSIL) 250 mg tablet Take 250 mg by mouth Take 1 tablet every other week. 0 9 Active rosuvastatin (CRESTOR) 10 mg tablet Take 10 mg by mouth daily 0 Active cetirizine (ZyrTEC) 10 mg tablet Take 10 mg by mouth daily Active mometasone-form oterol (DULERA 100) 100-5 mcg/actuation inhaler Inhale 2 puffs 2 (two) times a day Rinse mouth with water after use. Do not swallow. Active losartan (COZAAR) 100 mg tablet Take 1 tablet (100 mg total) by mouth daily 5 Active albuterol 2.5 mg /3 mL (0.083 %) nebulizer solution INHALE 1 VIAL PER NEBULIZER EVERY 6 HOURS NEEDED FOR COPD. 5 Active benzonatate (TESSALON) 200 mg capsule TAKE 1 CAPSULE BY MOUTH THREE TIMES DAILY NEEDED FOR COUGH 5 Active diltiazem (TIAZAC) 240 mg 24 hr capsule Take 2 capsules (480 mg total) by mouth daily 5 Active hydroCHLOROthia zide 12.5 mg tablet 5 Active nortriptyline (PAMELOR) 10 mg capsule [address] (PROTONIX) 40 mg EC tablet Take 1 tablet (40 mg total) by mouth daily 5 Active budesonide/glyc opyr/formoterol (BREZTRI AEROSPHERE INHAL) Inhale Active losartan (COZAAR) 50 mg tablet TAKE 1 TABLET BY MOUTH ONCE DAILY 90 tablet 3 9 05/17/20 25 Discontinu ed(Patient Reported) Active Problems Problem Noted Date Diagnosed Date PLATT (dyspnea on exertion) 05/17/2025 Chest pressure 05/17/2025 Essential hypertension 05/17/2025 Dyslipidemia 05/17/2025 Abnormal finding on cardiovascular stress test 1 Encounters Date Type Department Care Team Description 05/17/2025 2:00 PM CDT Office Visit [facility] Cardiology [address] [address] [address] [place] [address] Lu Meier MD PLATT (dyspnea on exertion) (Primary Dx); Chest pressure; Essential hypertension; Dyslipidemia; Abnormal finding on cardiovascular stress test 05/14/2025 Telephone [facility] [address] [facility] [address] [place] [phone] Lu Meier MD Scheduling Appointments 05/06/2025 8:15 AM CDT Ancillary Procedure [facility] Cardiology at [address] [place] [address] Shortness of breath from Last 3 Months Surgical History Surgery Date Site/Laterality Comments STOMACH SURGERY hernia repair and put lung back where it belonged TONSILLECTOMY Medical History Medical History Date Comments Hypertension Hypertension Hx Other Medical hypothyroidism Hx Other Medical hiatal hernia s urgery Hx Other Medical Gastric reflux Asthma Chest pain Thyroid disease Shortness of breath Family History Medical History Relation Name Comments Other Brother 2 Alive and well; Emphysema Father Emphysema; Lung cancer Mother Cancer, lung; Relation Name Status Comments Brother 1 Alive Brother 2 Father Mother Social History Tobacco Use Types Packs/Day Years Used Date Smoking Tobacco: Former Smokeless Tobacco: Never Alcohol Use Standard Drinks/Week Comments No 0 (1 standard drink = 0.6 oz pur e alcohol) Comments Unknown Sex and Gender Information Value Date Recorded Sex Assigned at Not on file 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 Gender Identity Not on file Sexual Orientation Not on file Obstetrics History Last Filed Vital Signs Vital Sign Reading Time Taken Comments Blood Pressure 122/60 05/17/2025 1:44 PM CDT Pulse 73 05/17/2025 1:44 PM CDT Temperature - - Respiratory Rate - - Oxygen Saturation 91% 05/17/2025 1:44 PM CDT Inhaled Oxygen Concentration - - Weight 76.6 kg (168 lb 12.8 oz) 05/17/2025 1:44 PM CDT Height 157.5 cm (5' 2) 05/17/2025 1:44 PM CDT Body Mass Index 30.87 05/17/2025 1:44 PM CDT Plan of Treatment Health Maintenance Due Date Last Done Comments Depression Screening 1945 Fall Risk Assessment 1945 Hepatitis C Screening 1945 Osteoporosis Screening-Bone Density Scan 1945 Hepatitis B Screening 1965 Zoster Vaccine (1 of 2) 1997 Well Visit 65+ 2012 Pneumococcal vaccine 65+ (2 of 2 - PPSV23, PCV20, or PCV21) 08/01/2018 06/06/2018 Influenza Vaccine (#1) 2025 9, 06/06/2018, 07/24/2017, Additional history exists DTaP/Tdap/Td Vaccine (2 - Td or Tdap) 05/25/2029 05/25/2019 Procedures Procedure Name Priority Date/Time Associated Diagnosis Comments NM MPI SPECT (REST AND/OR STRESS) MULTIPLE STUDIES Schedule Routine, Read Routine (OP Routine) 05/06/2025 9:42 AM CDT Shortness of breath from Last 3 Months Results * NM MPI SPECT (Rest and/or Stress) Multiple Studies (05/06/2025 9:42 AM CDT) Anatomical Region Laterality Modality Body N/A Electrocardiogra phy 05/06/2025 8:15 AM CDT Narrative 05/06/2025 2:00 PM CDT [facility] Cardiology [address], [place] [address] [address] [facility] [address], [place] [address], [place] [address] P:[phone] P:[phone] MPI Imaging Report Patient Name: KATELYNN LUONG A : 1945 Study Date: 05/06/2025 8:15:00 AM Sex: F [facility] Provider: OCTAVIO POWELL Height(Cm): 160 BSA: Weight(Kg): 74.5 Heart Rate: 122 BMI: 29.1 Order Provider: OCTAVIO POWELL PHYSICIAN: Primary Care Physician: Dr. Powell. [facility] Physician: none. Stress Supervision: Kwadwo Sorenesn M.D. Stress Interpreting Physician: Kwadwo Sorensen M.D. Image Interpreting Physician: Kwadwo Sorensen M.D. PROCEDURES: Pharmacologic SPECT Report: Myocardial perfusion imaging with Tc99M Sestamibi SPECT at rest and stress post regadenoson (Lexiscan) infusion. INDICATIONS: Chest Pain, Hypertension, High Cholesterol, Former Smoker, and R06.02 Shortness of breath. FINDINGS: Procedural Findings: One day rest/stress was used. Tc99m Sestamibi injected IV at rest was 10.7 millicuries 32.9 millicuries of Tc99M Sestamibi injected IV during Lexiscan stress Lexiscan 0.4mg given IV over 10 seconds with low level exercise: 1.2 MPH Pharmacologic stress related symptoms and/or side effects during infusion include chest pain 5/10 and shortness of breath. Symptoms were resolved with rest and pain completely resolved 11:30 post Lexiscan administration. Patient declined NTG. Baseline heart rate was 74 BPM Maximum Heart Rate Achieved was: 101 BPM Baseline blood pressure was 159/87 mmHg Post Stress Blood Pressure was 146/78 mmHg Termination: Protocol complete. Resting ECG: Normal sinus rhythm. Post ECG: No diagnostic ST changes. Arrhythmia: Occasional PVCs. Perfusion Findings: Normal perfusion imaging. No definite fixed or reversible defects. Technical quality of study is excellent. Left ventricle cavity size at rest is normal. Left ventricle cavity size with stress is unchanged. A TID of 0.89 was automatically calculated. LV Function: Global left ventricular function is normal. Left ventricular ejection fraction is 68 %. CONCLUSIONS: Global left ventricular function is normal. Left ventricular ejection fraction is 68 %. Myocardial perfusion imaging is normal. Negative EKG portion of stress test. Attenuation correction utilized for the interpretation of this study. Despite negative perfusion imaging and EKG, patient did develop 5-6/10 chest pain soon after Lexiscan infusion which did gradually improve several minutes into recovery. Electronically Signed By: Venkata Sorensen MD 05/06/2025 1:55:40 PM CDT Electronically Signed By: Venkata Sorensen MD 05/06/2025 1:55:40 PM CDT Procedure Note Venkata Sorensen MD - 05/06/2025 [facility] Cardiology [address] [address] [address] [facility] [id number], [place] [address] [address], [place] [address] P:[phone] P:[phone] MPI Imaging Report Patient Name: KATELYNN LUONG A : 1945 Study Date: 05/06/2025 8:15:00 AM Sex: F Tech: ANTONIO [facility] Location: [facility] Provider: OCTAVIO POWELL Height(Cm): 160 BSA: Weight(Kg): 74.5 Heart Rate: 122 BMI: 29.1 Order Provider: OCTAVIO POWELL PHYSICIAN: Primary Care Physician: Dr. Powell. [facility] Physician: none. StressSupervision: Kwadwo Sorensen M.D. Stress Interpreting Physician: Kwadwo Sorensen M.D. ImageInterpreting Physician: Kwadwo Sorensen M.D. PROCEDURES: Pharmacologic SPECT Report: Myocardial perfusion imaging with Tc99M Sestamibi SPECT at rest and stresspost regadenoson (Lexiscan) infusion. INDICATIONS: Chest Pain, Hypertension, High Cholesterol, Former Smoker, and R06.02Shortness of breath. FINDINGS: Procedural Findings: One day rest/stress was used. Tc99m Sestamibi injected IV at rest was 10.7 millicuries 32.9 millicuries of Tc99M Sestamibi injected IV during Lexiscan stress Lexiscan 0.4mg given IV over 10 seconds with low level exercise: 1.2MPH Pharmacologic stress related symptoms and/or side effects duringinfusion include chest pain 5/10 and shortness of breath. Symptoms were resolved with rest and pain completely resolved 11:30 postLexiscan administration. Patient declined NTG. Baseline heart rate was 74 BPM Maximum Heart Rate Achieved was: 101 BPM Baseline blood pressure was 159/87 mmHg Post Stress Blood Pressure was 146/78 mmHg Termination: Protocol complete. Resting ECG: Normal sinus rhythm. Post ECG: No diagnostic ST changes. Arrhythmia: Occasional PVCs. Perfusion Findings: Normal perfusion imaging. No definite fixed or reversible defects.Technical quality of study is excellent. Left ventricle cavity size at rest is normal. Leftventricle cavity size with stress is unchanged. A TID of 0.89 was automaticallycalculated. LV Function: Global left ventricular function is normal. Left ventricular ejectionfraction is 68 %. CONCLUSIONS: Global left ventricular function is normal. Left ventricular ejectionfraction is 68 %. Myocardial perfusion imaging is normal. Negative EKG portion of stress test. Attenuation correction utilized for the interpretation of this study. Despite negative perfusion imaging and EKG, patient did develop 5-6/10chest pain soon after Lexiscan infusion which did gradually improve several minutes intorecovery. Electronically Signed By: Venkata Sorensen MD 05/06/2025 1:55:40 PM CDT Electronically Signed By: Venkata Sorensen MD 05/06/2025 1:55:40 PM CDT Octavio Powell MD IMG NM PROCEDURES Final Resul t from Last 3 Months Insurance [facility] MEDICARE ADVANTAGE Care Teams Vegetables Cook Relationship Specialty Start Date End Date Octavio Powell MD PCP - General Internal Medicine 12/09/19
== END 2025-05-26 13:48 | disposition home or self-care (01) ==
PROVIDERS: PCP Internal Medicine; Visit Provider Internal Medicine
DX: R13.10 Dysphagia, unspecified (principal); R05.9 Cough, unspecified
CPT/HCPCS: 74230; 92611

== ENCOUNTER 2025-06-22 09:09 | Outpatient (CLI) | payer MEDICARE, SELFPAY ==
--- NOTE | ~2025-06-22 | XR_ITS ---
XR thoracic spine 3V Indication: Dorsalgia, pain x 10 months, no inj, no surg Comparison: None Findings: Moderate loss of vertebral height throughout, no fracture or subluxation. Moderate to severe loss of disc height throughout. Soft tissues unremarkable Impression: No acute abnormality. Reviewed, dictated and finalized at location P. ERMAKER FITTER Impression: No acute abnormality.
--- NOTE | ~2025-06-22 | XR_ITS ---
XR lumbar spine bending only Indication: Dorsalgia, pain x 10 months, no inj, no surg Comparison: None Findings: Grade 1 anterolisthesis of L4 on L5, there is no change with flexion and extension. Moderate to severe loss of disc height throughout most marked at L2-3 and L3-4. Soft tissues unremarkable Impression: No acute abnormality. Reviewed, dictated and finalized at location P. GER RETIREMENT Impression: No acute abnormality.
== END 2025-06-22 09:10 | disposition home or self-care (01) ==
LOC: GOSHIMG 09:10
PROVIDERS: PCP Internal Medicine; Visit Provider Internal Medicine
DX: M54.9 Dorsalgia, unspecified (principal); G89.29 Other chronic pain; S39.92XA Unspecified injury of lower back, initial encounter; Z87.828 Personal history of other (healed) physical injury and trauma; X58.XXXA Exposure to other specified factors, initial encounter
CPT/HCPCS: 72072; 72120

== ENCOUNTER 2025-07-02 01:59 | Day surgery (SDC) | payer MEDICARE, SELFPAY ==
[2025-06-28 12:19] VITALS: BMI 27.0
--- OUTSIDE RECORDS SUMMARY | 2025-07-02 02:02 | XMS_ITS | Clinical Summary ---
Author Organization [facility] Address [address] [place] [address] Care Team Providers Care Telemetry Monitor Name Role Phone Octavio Daniels MD Primary Care Provider [phone] Source Comments [facility],non-owned Affiliates and Associated Physician Practices is amultiple site organization consisting of ambulatory clinics and hospital sitesin [place], [place], [place] and [place]. This disclosure is being madepursuant to the Care Everywhere program and may not contain all information available regarding this patient. 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 Gender Identity Not on file Sexual [...] DEPRESSION SCREENING 08/12/2024 COVID-19 VACCINE (1 - 2024-2 6 season) 2025 INFLUENZA VACCINE (#1) 2025 HEPATITIS [...] Date of Phone Billing Address Personal/Family [address] [place] [address] MEDICARE COUNTS INCLUDE 234 BEDS AT THE [facility] * Guarantor: KATELYNN BAKER Account Type Relation to Patient Date of Phone Billing Address Personal/Family [address] [place] [address] MEDICARE COUNTS INCLUDE 234 BEDS AT THE [facility] * Guarantor: KATELYNN BAKER Account Type Relation to Patient Date of Phone Billing Address Personal/Family [address] [place] [address] MEDICARE ANTHEM Member Subscriber Plan / Payer (Ef fective for All Dates) Name:Katelynn Baker Member ID:Not on file Relation to Subscriber:Self Name:Katelynn Baker Subscriber ID:Not on file Payer ID:[id number] (NAIC) Type:Commercial Address: [place] [phone] Care Teams Telemetry Monitor Relationship Specialty Start Date End Date Octavio Daniels MD [address] [place] [address] PCP - General 10/30/22
[2025-07-02 13:44] VITALS: BP 123/75; PULSE 81; RESP 16; TEMP 36.4; O2SAT 98; BMI 26.9
[2025-07-02] MEDS: LACTATED RINGERS 1,000 ML 150 ML IV CONT (13:57)
--- NOTE | 2025-07-02 14:52 | WPDANESEPPF ---
Anes - Initial Pre Proc Eval Procedure: Operation Date: 07/02/25 15:00 Proposed Procedures p Esophagogastroduodenoscopy - Nasir Del Cid MD Date/Time: 07/02/25 14:52 Surgeon: Nasir Del Cid MD Pre Op Diagnosis: Dysphagia, unspecified Patient Data Age: 80 Gender: F Height: 1.57 m Weight: 66.8 kg Last Vital Signs Temp 97.6 F 07/02/25 13:44 Pulse 81 07/02/25 13:44 Resp 16 07/02/25 13:44 BP 123/75 07/02/25 13:44 Pulse Ox 98 07/02/25 13:44 O2 Del Method Room Air 07/02/25 13:44 Allergies Allergy/AdvReac Type Severity Reaction Status Date / Time neomycin Allergy Intermediate Rash Verified 07/02/25 13:42 Home Medications ?Medication ?Instructions ?Recorded ?Confirmed ?Type Home Nebulizer machine #1 ea 12/12/22 07/02/25 Rx flutter valve #1 ea 12/02/24 07/02/25 Rx nortriptyline 10 mg capsule 20 mg (2 x 10 mg) PO QHS #180 caps 12/15/24 07/02/25 Rx montelukast 10 mg tablet 10 mg PO DAILY #90 tabs 01/18/25 07/02/25 Rx (Singulair) meloxicam 15 mg tablet See Rx Instructions .Route 02/19/25 07/02/25 Rx .COMPLEX #90 tabs hydrochlorothiazide 12.5 mg tablet 12.5 mg PO DAILY #90 tabs 02/25/25 07/02/25 Rx losartan 100 mg tablet See Rx Instructions .Route 03/22/25 07/02/25 Rx .COMPLEX #90 tabs diltiazem HCl 240 mg capsule,24 See Rx Instructions .Route 04/01/25 07/02/25 Rx hr,extended release .COMPLEX #180 caps albuterol sulfate 2.5 mg/3 mL 2.5 mg (3 mL) inhalation Q6H PRN 04/29/25 07/02/25 Rx (0.083 %) solution for nebulization copd #90 mL benzonatate 200 mg capsule 200 mg PO TID PRN cough #30 caps 04/29/25 07/02/25 Rx levothyroxine 50 mcg tablet See Rx Instructions .Route 05/03/25 07/02/25 Rx .COMPLEX #90 tabs albuterol 90 mcg-budesonide 80 2 inh inhalation ONCE 05/14/25 07/02/25 History mcg/actuation HFA aerosol inhaler (Airsupra) nitroglycerin 0.4 mg sublingual 0.4 mg sublingual Q5M PRN chest 05/14/25 07/02/25 History tablet pain rosuvastatin 10 mg tablet See Rx Instructions .Route 05/19/25 07/02/25 Rx .COMPLEX #90 tabs tirzepatide (weight loss) 5 mg/0.5 5 mg (0.5 mL) subcut WEEKLY #2 mL 05/31/25 07/02/25 Rx mL subcutaneous solution (Zepbound) Held on 07/01/25. Instructions: Pt stopped 1 week ago due to nausea/EGD budesonide 160 mcg-glycopyr 9 2 inh inhalation BID #10.7 grams 06/14/25 07/02/25 Rx mcg-formot 4.8 mcg/actuation HFA inhaler (Breztri Aerosphere) pantoprazole 40 mg tablet,delayed See Rx Instructions .Route 06/21/25 07/02/25 Rx release .COMPLEX #180 tabs ondansetron HCl 8 mg tablet 8 mg PO Q8H PRN nausea and 06/22/25 07/02/25 Rx vomiting #90 tabs Patient hx anesthesia problems: none Family hx anesthesia problems: none Results Review: All pre-operative results and documents have been reviewed as part of the pre-operative evaluation. [facility] Past Medical History Medical History Hyponatremia BMI 27.0-27.9,adult Nausea and vomiting Chest discomfort Breast cancer screening Emphysema of lung COPD (chronic obstructive pulmonary disease) URI (upper respiratory infection) Grade I diastolic dysfunction Pre-diabetes Encounter for routine adult health examination with abnormal findings Positive colorectal cancer screening using Cologuard test Facial pain TMJ (temporomandibular joint disorder) Change in heart murmur Encounter for routine adult health examination without abnormal findings BMI 28.0-28.9,adult Colon cancer screening Follow up Abnormal CT scan, sinus Chronic bronchitis BMI 30.0-30.9,adult BMI 29.0-29.9,adult Encounter for Medicare annual wellness exam Vitamin D deficiency, unspecified Right hand pain Needs flu shot Lymphadenopathy of head and neck Hypothyroidism, unspecified Expiratory wheezing Essential (primary) hypertension Encounter for screening for lipoid disorders Dysfunction of both eustachian tubes Dizziness Dietary counseling and surveillance (06/21/15) Dermatitis Chronic maxillary sinusitis Anxiety attack Otalgia of both ears Impacted cerumen of left ear Low back pain Post-menopausal Thoracic spondylosis Lung nodule Seasonal allergies Hiatal hernia Sliding hiatal hernia Cough variant asthma Cerumen impaction Eustachian tube dysfunction Contact dermatitis Hyperlipidemia DJD (degenerative joint disease), multiple sites Paraesophageal hernia Chronic cough PLATT (dyspnea on exertion) 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 2009 Family History Family History Mother Family history of lung cancer Dementia Father Family history of emphysema COPD Asthma Sibling ASHD (arteriosclerotic heart disease) Hx of myocardial infarction Heart disease Social History Social History Smoking packs per day: 2 Smoking cigarettes per day: 40.0 Years smoked: 10 Smoking pack-years: 20.00 Smoking status: Former smoker Tobacco type: cigarettes Second hand tobacco smoke exposure: No Additional smoking assessment comments: QUIT 1993~ Alcohol intake: never Substance use: never Substance use type: does not use Current Housing: Decline to Answer Concerned About Future Housing: Decline to Answer Difficulty Paying Gas/Electric Bills: Decline to Answer Difficulty Paying for Meds: Decline to Answer Currently Unemployed: Decline to Answer Education: Decline to Answer Difficulty w/ Childcare or Family Care: Decline to Answer Living arrangements: with family Gender identity (if verbalized by the patient): Female Spiritual care concerns: No Anes - Eval Final PreProcedure Day of Procedure 07/02/25 14:52 Patient weight: normal and thin Lungs: normal air movement Airway: Mallampati scale class II Neurological: alert and oriented Last oral intake: >/= 8 hours ASA classification: III Emergent: no Anesthetic plan: proceed Anesthesia type and monitoring: general GIVS and standard monitoring Results Review: All pre-operative results and documents have been reviewed as part of the pre-operative evaluation. HTN, hyperlipidemia, COPD ex smoker, asthma, stable. ECHO 2023 w nml LVEF. Informed Consent: The patient's anesthetic plan and its attendant risks and benefits were discussed with the patient/family/POA. Questions were solicited and answers provided to the satisfaction of the patient/family/POA.
--- NOTE | 2025-07-02 15:04 | PM.HPGS ---
History of Present Illness History of Present Illness Consent: Risks, benefits, and alternatives have been discussed and questions answered. Patient agrees to proceed with procedure. Chief complaint: Dysphagia, unspecified Narrative: Alisa Baker is a 80 year old female here for egd, last one 2020, had dick in 2009. Cough for months, then started using glp1 as weight loss and got sick- finally discontinued 2 weeks because side effect. Review of Systems Review of Systems: All systems reviewed & are unremarkable except as noted in HPI and below PMFSH Past Medical History Medical History Hyponatremia BMI 27.0-27.9,adult Nausea and vomiting Chest discomfort Breast cancer screening Emphysema of lung COPD (chronic obstructive pulmonary disease) URI (upper respiratory infection) Grade I diastolic dysfunction Pre-diabetes Encounter for routine adult health examination with abnormal findings Positive colorectal cancer screening using Cologuard test Facial pain TMJ (temporomandibular joint disorder) Change in heart murmur Encounter for routine adult health examination without abnormal findings BMI 28.0-28.9,adult Colon cancer screening Follow up Abnormal CT scan, sinus Chronic bronchitis BMI 30.0-30.9,adult BMI 29.0-29.9,adult Encounter for Medicare annual wellness exam Vitamin D deficiency, unspecified Right hand pain Needs flu shot Lymphadenopathy of head and neck Hypothyroidism, unspecified Expiratory wheezing Essential (primary) hypertension Encounter for screening for lipoid disorders Dysfunction of both eustachian tubes Dizziness Dietary counseling and surveillance (06/21/15) Dermatitis Chronic maxillary sinusitis Anxiety attack Otalgia of both ears Impacted cerumen of left ear Low back pain Post-menopausal Thoracic spondylosis Lung nodule Seasonal allergies Hiatal hernia Sliding hiatal hernia Cough variant asthma Cerumen impaction Eustachian tube dysfunction Contact dermatitis Hyperlipidemia DJD (degenerative joint disease), multiple sites Paraesophageal hernia Chronic cough PLATT (dyspnea on exertion) 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 2009 Family History Family History Mother Family history of lung cancer Dementia Father Family history of emphysema COPD Asthma Sibling ASHD (arteriosclerotic heart disease) Hx of myocardial infarction Heart disease Social History Social History Smoking packs per day: 2 Smoking cigarettes per day: 40.0 Years smoked: 10 Smoking pack-years: 20.00 Smoking status: Former smoker Tobacco type: cigarettes Second hand tobacco smoke exposure: No Additional smoking assessment comments: QUIT 1993~ Alcohol intake: never Substance use: never Substance use type: does not use Current Housing: Decline to Answer Concerned About Future Housing: Decline to Answer Difficulty Paying Gas/Electric Bills: Decline to Answer Difficulty Paying for Meds: Decline to Answer Currently Unemployed: Decline to Answer Education: Decline to Answer Difficulty w/ Childcare or Family Care: Decline to Answer Living arrangements: with family Gender identity (if verbalized by the patient): Female Spiritual care concerns: No Meds Home Medications and Allergies Home Medications ?Medication ?Instructions ?Recorded ?Confirmed ?Type Home Nebulizer machine #1 ea 12/12/22 07/02/25 Rx flutter valve #1 ea 12/02/24 07/02/25 Rx nortriptyline 10 mg capsule 20 mg (2 x 10 mg) PO QHS #180 caps 12/15/24 07/02/25 Rx montelukast 10 mg tablet 10 mg PO DAILY #90 tabs 01/18/25 07/02/25 Rx (Singulair) meloxicam 15 mg tablet See Rx Instructions .Route 02/19/25 07/02/25 Rx .COMPLEX #90 tabs hydrochlorothiazide 12.5 mg tablet 12.5 mg PO DAILY #90 tabs 02/25/25 07/02/25 Rx losartan 100 mg tablet See Rx Instructions .Route 03/22/25 07/02/25 Rx .COMPLEX #90 tabs diltiazem HCl 240 mg capsule,24 See Rx Instructions .Route 04/01/25 07/02/25 Rx hr,extended release .COMPLEX #180 caps albuterol sulfate 2.5 mg/3 mL 2.5 mg (3 mL) inhalation Q6H PRN 04/29/25 07/02/25 Rx (0.083 %) solution for nebulization copd #90 mL benzonatate 200 mg capsule 200 mg PO TID PRN cough #30 caps 04/29/25 07/02/25 Rx levothyroxine 50 mcg tablet See Rx Instructions .Route 05/03/25 07/02/25 Rx .COMPLEX #90 tabs albuterol 90 mcg-budesonide 80 2 inh inhalation ONCE 05/14/25 07/02/25 History mcg/actuation HFA aerosol inhaler (Airsupra) nitroglycerin 0.4 mg sublingual 0.4 mg sublingual Q5M PRN chest 05/14/25 07/02/25 History tablet pain rosuvastatin 10 mg tablet See Rx Instructions .Route 05/19/25 07/02/25 Rx .COMPLEX #90 tabs tirzepatide (weight loss) 5 mg/0.5 5 mg (0.5 mL) subcut WEEKLY #2 mL 05/31/25 07/02/25 Rx mL subcutaneous solution (Zepbound) Held on 07/01/25. Instructions: Pt stopped 1 week ago due to nausea/EGD budesonide 160 mcg-glycopyr 9 2 inh inhalation BID #10.7 grams 06/14/25 07/02/25 Rx mcg-formot 4.8 mcg/actuation HFA inhaler (Breztri Aerosphere) pantoprazole 40 mg tablet,delayed See Rx Instructions .Route 06/21/25 07/02/25 Rx release .COMPLEX #180 tabs ondansetron HCl 8 mg tablet 8 mg PO Q8H PRN nausea and 06/22/25 07/02/25 Rx vomiting #90 tabs Allergies Allergy/AdvReac Type Severity Reaction Status Date / Time neomycin Allergy Intermediate Rash Verified 07/02/25 13:42 Vital Signs Vital Signs - 24 hr 07/02/25 13:44 Temperature 97.6 F Pulse Rate 81 Respiratory Rate 16 Blood Pressure 123/75 Pulse Oximetry 98 Oxygen Delivery Room Air Exam Const: General: comfortable and no acute distress HENMT: Face/Nose/Sinus: Normal nares present Eyes: General: appearance normal, both eyes and all related structures Neck: Neck: no JVD Resp: Auscultation: clear to auscultation bilaterally Cardio: Rate: regular rate Rhythm: regular rhythm GI: Inspection: non-distended GI Palp: Yes Soft to palpation Skin: General skin exam: normal color Extrem: General: normal to inspection Psych: Mental Status: mental status grossly normal Assessment and Plan Assessment and plan (1) Cough: Code(s): R05.9 - Cough, unspecified Status: Acute Assessment and Plan: egd with bx (2) History of hernia surgery: Code(s): Z98.890 - Other specified postprocedural states; Z87.19 - Personal history of other diseases of the digestive system Status: Acute
--- NOTE | 2025-07-02 15:14 | S_PTH ---
PATIENT: Alisa Baker LOC: [facility]#:[id number] AGE/SX: 80/F ROOM: RE07/02/[address]: Nasir Del Cid MD : 1945 BED: DIS: 07/02/2025 SPEC #: [id number] RECD: 07/05/25 07:36 STATUS: EROS MORALES #: [id number] TONYA: 07/02/25 15:[address]: Nasir Del Cid DEPT: [facility] Surgical RECD BY: Deidra Pan ENTERED: 07/05/25 07:37 SP TYPE: Surgical OTHR DR: Octavio Daniels MD Tissues: A - Esophageal Biopsy B - Gastric Biopsy Procedures: Hematoxylin and Eosin Stain Gross and Microscopic Level 4
[2025-07-02 15:18] VITALS: BP 109/75; PULSE 66; RESP 21; O2SAT 100
[2025-07-02 15:28] VITALS: BP 99/86; PULSE 63; RESP 24; O2SAT 100
[2025-07-02 15:38] VITALS: BP 132/54; PULSE 62; RESP 20; O2SAT 100
== END 2025-07-02 15:46 | disposition home or self-care (01) ==
PROVIDERS: PCP Internal Medicine; Referring Provider Internal Medicine; Visit Provider Internal Medicine Gastroenterology
PROC: 0DJ08ZZ Inspection of Upper Intestinal Tract, Via Natural or Artificial Opening Endoscopic (ICD-10-PCS; CPT 43239; principal; 2025-07-02 15:00)
DX: R05.9 Cough, unspecified (principal); E78.5 Hyperlipidemia, unspecified; E03.9 Hypothyroidism, unspecified; J44.9 Chronic obstructive pulmonary disease, unspecified; R73.03 Prediabetes; E55.9 Vitamin D deficiency, unspecified; I11.9 Hypertensive heart disease without heart failure; E87.1 Hypo-osmolality and hyponatremia; J32.0 Chronic maxillary sinusitis; F41.9 Anxiety disorder, unspecified; M43.04 Spondylolysis, thoracic region; R05.3 Chronic cough; M15.0 Primary generalized (osteo)arthritis; Z79.51 Long term (current) use of inhaled steroids; Z79.85 Long-term (current) use of injectable non-insulin antidiabetic drugs; Z79.899 Other long term (current) drug therapy; Z98.890 Other specified postprocedural states; Z87.891 Personal history of nicotine dependence; Z87.19 Personal history of other diseases of the digestive system; Z80.1 Family history of malignant neoplasm of trachea, bronchus and lung; Z82.49 Family history of ischemic heart disease and other diseases of the circulatory system
CPT/HCPCS: 43239; 88305; J2003; J2704; J7120

== ENCOUNTER 2025-07-20 09:18 | Outpatient (CLI) | payer MEDICARE, SELFPAY ==
--- NOTE | ~2025-07-20 | XR_ITS ---
EXAMINATION: XR abdomen obstructive series, 07/20/2025 9:28 [facility] HISTORY: Constipation x 4 weeks, hiatal hernia in the past, inj COMPARISON: No comparisons available. Technique: 3 view. Findings: Moderate fecal content, no dilated bowel loops No free air. No abnormal calcifications No acute osseous abnormality. Impression: 1. No acute abnormality. Reviewed, dictated and finalized at location P. [facility] Impression: 1. No acute abnormality.
== END 2025-07-20 09:19 | disposition home or self-care (01) ==
LOC: GOSHIMG 09:19
PROVIDERS: PCP Internal Medicine; Visit Provider Internal Medicine
DX: K59.00 Constipation, unspecified (principal); R10.9 Unspecified abdominal pain
CPT/HCPCS: 74019

== ENCOUNTER 2025-07-23 13:37 | Emergency (ER) | payer MEDICARE, SELFPAY ==
[2025-07-23] VITALS (7 sets, daily range): BP systolic 116–161; BP diastolic 52–71; PULSE 63–102; RESP 14–20; TEMP 36.8–37.2; O2SAT 96–100
--- NOTE | ~2025-07-23 | CT_ITS ---
EXAMINATION: CT abdomen pelvis w con DATE: 07/23/2025 18:21 INDICATION: 80-year-old with abdominal pain, nausea and vomiting. TECHNIQUE: Computed tomography (CT) of the abdomen and pelvis was performed with 100 cc intravenous contrast. Automated exposure control and iterative reconstruction technique were employed. The dose-length product was 297.33 mGy-cm. COMPARISON: Abdomen series dated 07/20/2025 FINDINGS: Lung bases do not show acute findings. Large hiatus hernia in the lower mediastinum. No focal lesions of liver and spleen. Mildly distended gallbladder without edema gallbladder wall or calcified stones. Bile ducts are normal in size. Pancreas shows no acute findings. No evidence of small bowel obstruction. Significant calcific changes at the origin of superior mesenteric artery. Moderate fecal impaction of the colon. The appendix is not distinctly visible. No inflammatory changes in the pelvis. Multiple diverticula of sigmoid colon. Severe degenerative disc disease in the mid lumbar spine. IMPRESSION: 1. No definite acute findings in the upper abdomen and pelvis. 2. Distended gallbladder without edema or calcified stones. 3. Significant calcific changes at the origin of superior mesenteric artery. 4. Moderate fecal impaction of proximal colon. 5. Scoliosis of lumbar spine with severe multilevel degenerative disc disease. 6. Hiatus hernia. Reviewed, dictated and finalized at location T. COLLECTION TECHNICIAN
[2025-07-23 14:53] LABS: Add Urine Microscopic? YES; Appearance Urine Clear (Clear); Glucose Urine UA Negative (Negative); Leukocyte Esterase Ur Trace LEU/UL (Negative); Need Manual Microscopic Reviewed; Nitrate Urine Negative (Negative); Specific Grav Ur 1.012 (1.001-1.035)
--- NOTE | 2025-07-23 17:09 | ED_ITS ---
HPI - Abdominal Pain General Chief Complaint: Abdominal Pain <RODRIGO Aguillon Last Filed: 07/23/25 17:18> Stated Complaint: sickX 3-4 weeks, hernia causing pain <RODRIGO Aguillon Last Filed: 07/23/25 17:18> Time Seen by Provider: 07/23/25 17:09 <RODRIGO Aguillon Last Filed: 07/23/25 17:18> Focused HPI: Patient is a 80 y/o female who presents to the ED with c/o N/V. Patient reports having persistent N/V for the past 3 weeks. States she has a horrific taste in her mouth and is unable to keep down food. Is able to drink some fluids, but only small sips at a time. Had an outpatient CT scan of her heart done 2 days ago at [facility] which showed a small to moderate sized hiatal hernia. States she called Dr. Cornejo's office about this, but he is unable to see her until . Is on pantoprazole for GERD. Refilled sucralfate today and has had 1 dose. Is concerned for dehydration, overall weakness d/t not being able to eat for 2 weeks. Also states her vomiting is very violent. States last night she almost passed out from vomiting so hard. Denies fevers, hematemesis. GENERAL: Well-appearing, well-nourished, and in no acute distress. HEAD: Normocephalic, atraumatic. CHEST: Clear to auscultation. ?No respiratory distress. HEART: Regular rate and rhythm.? NEURO: ?Alert and oriented x3. Patient screened in triage and initial orders placed.? ?Additional care and disposition to be based upon?diagnostic testing and treatment. <RODRIGO Aguillon Last Filed: 07/23/25 17:18> Source: patient <RODRIGO Aguillon Last Filed: 07/23/25 17:18> Mode of arrival: ambulatory <RODRIGO Aguillon Last Filed: 07/23/25 17:18> Limitations: no limitations <RODRIGO Agiullon Last Filed: 07/23/25 17:18> History of Present Illness HPI narrative: Patient is a 72-year-old female who presents emergency department chief complaint of nausea vomiting and hiatal hernia. The patient reports she has been having increasing nausea vomiting a burning sensation up through her esophagus the patient states that she has not been able to eat much and reports that she has had multiple episodes of vomiting patient reports that she is scheduled see Dr. cornejo next week in the office but reports that she felt as though she does was not able to make it until that point. The patient was given a prescription for Carafate today <Kenny Luna MD - Last Filed: 07/23/25 19:42> Related Data Home Medications: Home Medications ?Medication ?Instructions ?Recorded ?Confirmed ?Last Taken ?Type albuterol 90 mcg-budesonide 80 2 inh inhalation ONCE 1 07/20/25 07/02/25 History mcg/actuation HFA aerosol inhaler (Airsupra) nitroglycerin 0.4 mg sublingual 0.4 mg sublingual Q5M PRN chest 05/14/25 07/20/25 Unknown History tablet pain <Ginna Cruz PA-C - Last Filed: 07/23/25 17:18> Allergies/Adverse Reactions: Allergies Allergy/AdvReac Type Severity Reaction Status Date / Time neomycin Allergy Intermediate Rash Verified 07/23/25 13:39 <Ginna Cruz PA-C - Last Filed: 07/23/25 17:18> Review of Systems 2 Review of Systems: A 10 system review of systems was completed on the patient and is negative except for what is stated in the HPI. Nursing and ancillary documentation was reviewed. <Kenny Luna MD - Last Filed: 07/23/25 19:42> REPLACED BY [facility] Past Medical History Medical History: Medical History BMI 25.0-25.9,adult Dyspepsia Constipation Hyponatremia BMI 27.0-27.9,adult Nausea and vomiting Chest discomfort Breast cancer screening Emphysema of lung COPD (chronic obstructive pulmonary disease) URI (upper respiratory infection) Grade I diastolic dysfunction Pre-diabetes Encounter for routine adult health examination with abnormal findings Positive colorectal cancer screening using Cologuard test Facial pain TMJ (temporomandibular joint disorder) Change in heart murmur Encounter for routine adult health examination without abnormal findings BMI 28.0-28.9,adult Colon cancer screening Follow up Abnormal CT scan, sinus Chronic bronchitis BMI 30.0-30.9,adult BMI 29.0-29.9,adult Encounter for Medicare annual wellness exam Vitamin D deficiency, unspecified Right hand pain Needs flu shot Lymphadenopathy of head and neck Hypothyroidism, unspecified Expiratory wheezing Essential (primary) hypertension Encounter for screening for lipoid disorders Dysfunction of both eustachian tubes Dizziness Dietary counseling and surveillance (06/21/15) Dermatitis Chronic maxillary sinusitis Anxiety attack Otalgia of both ears Impacted cerumen of left ear Low back pain Post-menopausal Thoracic spondylosis Lung nodule Seasonal allergies Hiatal hernia Sliding hiatal hernia Cough variant asthma Cerumen impaction Eustachian tube dysfunction Contact dermatitis Hyperlipidemia DJD (degenerative joint disease), multiple sites Paraesophageal hernia Chronic cough PLATT (dyspnea on exertion) 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 2009 <Ginna Cruz PA-C - Last Filed: 07/23/25 17:18> Family History Family History: Family History Mother Family history of lung cancer Dementia Father Family history of emphysema COPD Asthma Sibling ASHD (arteriosclerotic heart disease) Hx of myocardial infarction Heart disease <RODRIGO Aguillon Last Filed: 07/23/25 17:18> Social History Social History: Social History Smoking packs per day: 2 Smoking cigarettes per day: 40.0 Years smoked: 10 Smoking pack-years: 20.00 Smoking status: Former smoker Tobacco type: cigarettes Second hand tobacco smoke exposure: No Additional smoking assessment comments: QUIT 1993~ Alcohol intake: never Substance use: never Substance use type: does not use Current Housing: Decline to Answer Concerned About Future Housing: Decline to Answer Difficulty Paying Gas/Electric Bills: Decline to Answer Difficulty Paying for Meds: Decline to Answer Currently Unemployed: Decline to Answer Education: Decline to Answer Difficulty w/ Childcare or Family Care: Decline to Answer Living arrangements: with family Gender identity (if verbalized by the patient): Female Spiritual care concerns: No <Ginna Cruz PA-C - Last Filed: 07/23/25 17:18> Exam 2 Narrative: GENERAL: Well-appearing, well-nourished, and in no acute distress. HEAD: Normocephalic, atraumatic. EYES: PERRLA and EOMI. ENT: Nares clear, no rhinorrhea or epistaxis. Mucous membranes moist. NECK: Supple. CHEST: Clear to auscultation. No respiratory distress. HEART: Regular rate and rhythm. No murmur heard. Normal peripheral pulses. ABDOMEN: Soft, nontender, nondistended, normal active bowel sounds. EXTREMITIES: Normal range of motion. No edema. SKIN: Warm, dry, no rash. NEURO: No focal deficits. Alert and oriented x3. PSYCH: Normal mood and affect. <Kenny Luna MD - Last Filed: 07/23/25 19:42> Course Vital Signs Vital signs: Vital Signs Temperature 37.2 C 07/23/25 13:57 Pulse Rate 75 07/23/25 13:57 Respiratory Rate 16 07/23/25 13:57 Blood Pressure 145/67 H 07/23/25 13:57 Pulse Oximetry 97 07/23/25 13:57 Oxygen Delivery Room Air 07/23/25 13:57 Temperature 36.8 C 07/23/25 15:46 Pulse Rate 102 H 07/23/25 18:49 Respiratory Rate 16 07/23/25 18:49 Blood Pressure 134/60 07/23/25 18:49 Pulse Oximetry 96 07/23/25 18:49 Oxygen Delivery Room Air 07/23/25 13:57 <Ginan Cruz PA-C - Last Filed: 07/23/25 17:18> Vital Signs Temperature 37.2 C 07/23/25 13:57 Pulse Rate 75 07/23/25 13:57 Respiratory Rate 16 07/23/25 13:57 Blood Pressure 145/67 H 07/23/25 13:57 Pulse Oximetry 97 07/23/25 13:57 Oxygen Delivery Room Air 07/23/25 13:57 Temperature 36.8 C 07/23/25 15:46 Pulse Rate 102 H 07/23/25 18:49 Respiratory Rate 16 07/23/25 18:49 Blood Pressure 134/60 07/23/25 18:49 Pulse Oximetry 96 07/23/25 18:49 Oxygen Delivery Room Air 07/23/25 13:57 <Kenny Luna MD - Last Filed: 07/23/25 19:42> [facility] Narrative Medical decision making narrative: MSE by MARK in triage <Ginna Cruz PA-C - Last Filed: 07/23/25 17:18> Differential Diagnosis Differential Diagnosis: Differential diagnosis includes bowel obstruction, gastritis, colitis, pancreatitis, Patient received IV fluids and antiemetics and is feeling much better. Laboratory studies were obtained that showed a white count of 4.9 electrolytes showed no significant abnormality urinalysis showed 3+ ketones Patient received IV fluids and is feeling immensely better CT scan showed no acute abnormality other than some increased stool burden The patient is able tolerate p.o. and is feeling much better would like to go home <Kenny Luna MD - Last Filed: 07/23/25 19:42> Lab Data [facility] Lab Attestation statement: I personally reviewed the patient's lab results. <Kenny Luna MD - Last Filed: 07/23/25 19:42> Result diagrams: 07/23/25 17:50 07/23/25 17:50 <Ginna Cruz PA-C - Last Filed: 07/23/25 17:18> Labs: Lab Results 07/23/25 07/23/25 07/23/25 Range/Units 13:38 17:50 17:55 WBC 4.9 (4.5-10.0) K/mm3 RBC 4.04 L (4.2-5.4) M/mm3 Hgb 12.7 (12.0-15.0) g/dL Hct 37.8 (37.0-47.0) % MCV 93.6 (80-100) fl MCH 31.4 (26-34) pg MCHC 33.6 (32-36) g/dl RDW 12.5 (11.5-14.5) % Plt Count 250 (150-375) k/mm3 MPV 8.7 (7.4-10.4) fl Immature Gran % (Auto) 0.6 H (0-0.5) % Neut % (Auto) 57.5 (45.5-73.1) % Lymph % (Auto) 29.4 (18.3-44.2) % [place] % (Auto) 8.6 H (2.6-8.5) % Eos % (Auto) 2.7 (0-4.4) % Baso % (Auto) 1.2 (0.2-1.2) % Lymph # (Auto) 1.44 (0.9-3.2) K/mm3 [place] # (Auto) 0.4 (0.1-0.6) K/mm3 Eos # (Auto) 0.1 (0-0.3) K/mm3 Baso # (Auto) 0.1 (0.0-0.1) K/mm3 Abs Immat Gran (auto) 0.03 (0.00-0.031) K/mm3 Absolute Neuts (auto) 2.8 (1.3-6.7) K/mm3 Absolute Nucleated RBC 0.000 (0.0-0.012) K/mm3 Nucleated RBC % 0.0 (0.0-0.2) % Sodium 129 L (137-145) mmol/L Potassium 3.5 (3.4-5.0) mmol/L Chloride 97 L (98-107) mmol/L Carbon Dioxide 25 (22-30) mmol/L Anion Gap 7 (4-12) mmol/L BUN 11 (7-17) mg/dL Creatinine 0.98 (0.7-1.0) mg/dL Estim Creat Clear Calc 33 ml/min Estimated GFR 55 L (59 - ) Glucose 66 (65-110) mg/dL Lactic Acid 0.8 (0.7-2.0) mmol/L Calcium 9.5 (8.4-10.2) mg/dL Magnesium 2.1 (1.6-2.3) mg/dL Total Bilirubin 0.9 (0.2-1.3) mg/dL AST 27 (14-36) U/L ALT 19 (6-35) U/L Alkaline Phosphatase 64 (38-126) U/L Total Protein 6.8 (6.3-8.2) g/dL Albumin 4.3 (3.5-5.1) g/dL Lipase 50 (23-300) U/L Urine Color Yellow (Yellow) Urine Appearance Clear (Clear) Urine pH 5.0 (5.0-9.0) Ur Specific [place] 1.012 (1.001-1.035) Urine Protein Trace (Negative) mg/dL Urine Glucose (UA) Negative (Negative) mg/dL Urine Ketones 3+ H (Negative) mg/dL Ur Blood (Man) Negative (Negative) Urine Nitrate Negative (Negative) Urine Bilirubin Negative (Negative) Urine Urobilinogen 1.0 (<2.0) mg/dL Add Ur Microanalysis Reviewed Leukocyte Esterase Rfl Trace H (Negative) DIEGO/UL Urine RBC 0-2 (0-2) /hpf Urine WBC 6-10 H (0-3) /hpf Ur Squamous Epith Cells Occasional (Few) /hpf Urine Bacteria None seen /hpf Urine Casts 6-10 <Ginna Cruz PA-C - Last Filed: 07/23/25 17:18> Lab Results 07/23/25 07/23/25 07/23/25 Range/Units 13:38 17:50 17:55 WBC 4.9 (4.5-10.0) K/mm3 RBC 4.04 L (4.2-5.4) M/mm3 Hgb 12.7 (12.0-15.0) g/dL Hct 37.8 (37.0-47.0) % MCV 93.6 (80-100) fl MCH 31.4 (26-34) pg MCHC 33.6 (32-36) g/dl RDW 12.5 (11.5-14.5) % Plt Count 250 (150-375) k/mm3 MPV 8.7 (7.4-10.4) fl Immature Gran % (Auto) 0.6 H (0-0.5) % Neut % (Auto) 57.5 (45.5-73.1) % Lymph % (Auto) 29.4 (18.3-44.2) % [place] % (Auto) 8.6 H (2.6-8.5) % Eos % (Auto) 2.7 (0-4.4) % Baso % (Auto) 1.2 (0.2-1.2) % Lymph # (Auto) 1.44 (0.9-3.2) K/mm3 [place] # (Auto) 0.4 (0.1-0.6) K/mm3 Eos # (Auto) 0.1 (0-0.3) K/mm3 Baso # (Auto) 0.1 (0.0-0.1) K/mm3 Abs Immat Gran (auto) 0.03 (0.00-0.031) K/mm3 Absolute Neuts (auto) 2.8 (1.3-6.7) K/mm3 Absolute Nucleated RBC 0.000 (0.0-0.012) K/mm3 Nucleated RBC % 0.0 (0.0-0.2) % Sodium 129 L (137-145) mmol/L Potassium 3.5 (3.4-5.0) mmol/L Chloride 97 L (98-107) mmol/L Carbon Dioxide 25 (22-30) mmol/L Anion Gap 7 (4-12) mmol/L BUN 11 (7-17) mg/dL Creatinine 0.98 (0.7-1.0) mg/dL Estim Creat Clear Calc 33 ml/min Estimated GFR 55 L (59 - ) Glucose 66 (65-110) mg/dL Lactic Acid 0.8 (0.7-2.0) mmol/L Calcium 9.5 (8.4-10.2) mg/dL Magnesium 2.1 (1.6-2.3) mg/dL Total Bilirubin 0.9 (0.2-1.3) mg/dL AST 27 (14-36) U/L ALT 19 (6-35) U/L Alkaline Phosphatase 64 (38-126) U/L Total Protein 6.8 (6.3-8.2) g/dL Albumin 4.3 (3.5-5.1) g/dL Lipase 50 (23-300) U/L Urine Color Yellow (Yellow) Urine Appearance Clear (Clear) Urine pH 5.0 (5.0-9.0) Ur Specific [place] 1.012 (1.001-1.035) Urine Protein Trace (Negative) mg/dL Urine Glucose (UA) Negative (Negative) mg/dL Urine Ketones 3+ H (Negative) mg/dL Ur Blood (Man) Negative (Negative) Urine Nitrate Negative (Negative) Urine Bilirubin Negative (Negative) Urine Urobilinogen 1.0 (<2.0) mg/dL Add Ur Microanalysis Reviewed Leukocyte Esterase Rfl Trace H (Negative) DIEGO/UL Urine RBC 0-2 (0-2) /hpf Urine WBC 6-10 H (0-3) /hpf Ur Squamous Epith Cells Occasional (Few) /hpf Urine Bacteria None seen /hpf Urine Casts 6-10 <Kenny Luna MD - Last Filed: 07/23/25 19:42> Imaging Data Radiologist's impression: ITS Impressions Abdomen/Pelvis CT 07/23/25 18:22 IMPRESSION: 1. No definite acute findings in the upper abdomen and pelvis. 2. Distended gallbladder without edema or calcified stones. 3. Significant calcific changes at the origin of superior mesenteric artery. 4. Moderate fecal impaction of proximal colon. 5. Scoliosis of lumbar spine with severe multilevel degenerative disc disease. 6. Hiatus hernia. <Ginna Cruz PA-C - Last Filed: 07/23/25 17:18> ITS Impressions Abdomen/Pelvis CT 07/23/25 18:22 IMPRESSION: 1. No definite acute findings in the upper abdomen and pelvis. 2. Distended gallbladder without edema or calcified stones. 3. Significant calcific changes at the origin of superior mesenteric artery. 4. Moderate fecal impaction of proximal colon. 5. Scoliosis of lumbar spine with severe multilevel degenerative disc disease. 6. Hiatus hernia. <Kenny Luna MD - Last Filed: 07/23/25 19:42> Discharge Plan Discharge Clinical Impression: Nausea and vomiting Qualifiers: Vomiting type: unspecified Qualified Code(s): R11.2 - Nausea with vomiting, unspecified <RODRIGO Aguillon Last Filed: 07/23/25 17:18> Patient Disposition: Home <Ginna Cruz PA-C - Last Filed: 07/23/25 17:18> Condition: Stable <Ginna Cruz PA-C - Last Filed: 07/23/25 17:18> Instructions: Antibiotic Form, Acute Nausea and Vomiting (DC) <Ginna Cruz PA-C - Last Filed: 07/23/25 17:18> Patient Language: Mongolian <Ginna Cruz PA-C - Last Filed: 07/23/25 17:18> Prescriptions: No Action nortriptyline 10 mg capsule 20 mg PO QHS Qty: 180 2RF benzonatate 200 mg capsule 200 mg PO TID PRN (Reason: cough) Qty: 30 0RF albuterol sulfate 2.5 mg /3 mL (0.083 %) solution for nebulization 2.5 mg inhalation Q6H PRN (Reason: copd) Qty: 90 3RF meloxicam 15 mg tablet See Rx Instructions .ROUTE .COMPLEX Qty: 90 0RF Dose Instruction: Take 1 tablet by mouth once daily Rx Instructions: Take 1 tablet by mouth once daily (DME) flutter valve See Rx Instructions .Route .MEDSUPPLY Qty: 1 0RF Rx Instructions: As directed Airsupra 90-80 mcg/actuation HFA aerosol inhaler 2 inh inhalation ONCE Rx Instructions: as a single dose; may repeat up to 6 doses per day (12 inhalations) nitroglycerin 0.4 mg tablet, sublingual 0.4 mg sublingual Q5M PRN (Reason: chest pain) Rx Instructions: do not exceed 3 doses per episode promethazine 25 mg tablet 25 mg PO QID PRN (Reason: nausea and vomiting) Qty: 120 0RF (DME) Home Nebulizer machine See Rx Instructions .Route .MEDSUPPLY Qty: 1 0RF Rx Instructions: As directed montelukast [Singulair] 10 mg tablet 10 mg PO DAILY Qty: 90 4RF hydrochlorothiazide 12.5 mg tablet 12.5 mg PO DAILY Qty: 90 1RF losartan 100 mg tablet See Rx Instructions .ROUTE .COMPLEX Qty: 90 1RF Dose Instruction: Take 1 tablet by mouth once daily Rx Instructions: Take 1 tablet by mouth once daily diltiazem HCl 240 mg capsule,extended release 24 hr See Rx Instructions .ROUTE .COMPLEX Qty: 180 1RF Dose Instruction: Take 2 capsules by mouth once daily Rx Instructions: Take 2 capsules by mouth once daily levothyroxine 50 mcg tablet See Rx Instructions .ROUTE .COMPLEX Qty: 90 1RF Dose Instruction: Take 1 tablet by mouth once daily Rx Instructions: Take 1 tablet by mouth once daily rosuvastatin 10 mg tablet See Rx Instructions .ROUTE .COMPLEX Qty: 90 0RF Dose Instruction: Take 1 tablet by mouth once daily Rx Instructions: Take 1 tablet by mouth once daily Zepbound 5 mg/0.5 mL solution 5 mg subcut WEEKLY Qty: 2 0RF Breztri Aerosphere 160-9-4.8 mcg/actuation HFA aerosol inhaler 2 inh inhalation BID Qty: 10.7 3RF Rx Instructions: BREZTRI BRAND NAME ONLY ondansetron HCl 8 mg tablet 8 mg PO Q8H PRN (Reason: nausea and vomiting) Qty: 90 1RF pantoprazole 40 mg tablet,delayed release (DR/EC) See Rx Instructions .ROUTE .COMPLEX Qty: 180 3RF Dose Instruction: TAKE 1 TABLET BY MOUTH ONCE DAILY IN THE MORNING Rx Instructions: TAKE 1 TABLET BY MOUTH TWICE DAILY IN THE MORNING sucralfate 1 gram tablet 1 g PO BID Qty: 60 0RF Rx Instructions: Dissolve one tablet in water twice daily <Ginna Cruz PA-C - Last Filed: 07/23/25 17:18> Follow-up/Referrals: Octavio Daniels MD [Primary Care Provider, Internal Medicine] <Ginna Cruz PA-C - Last Filed: 07/23/25 17:18> Time of Disposition: 19:42 <Ginna Cruz PA-C - Last Filed: 07/23/25 17:18> 19:42 <Kenny Luna MD - Last Filed: 07/23/25 19:42>
[2025-07-23] MEDS: ONDANSETRON INJ 4 MG/2 ML VIAL IV PUSH (17:49)
[2025-07-23] MEDS: SODIUM CHLORIDE 0.9% IV 1,000 ML 999 ML IV CONT (17:49)
[2025-07-23] MEDS: FAMOTIDINE 20 MG/2 ML VIAL IV PUSH (17:49)
[2025-07-23 18:08] LABS: Hematocrit 37.8 % (37.0-47.0); Hemoglobin 12.7 g/dL (12.0-15.0); Immature Granulocyte Percent A 0.6 % (0-0.5); Lymphocytes Absolute Auto 1.44 K/mm3 (0.9-3.2); Mean Corpuscular HGB Conc 33.6 g/dl (32-36); Mean Corpuscular Hemoglobin 31.4 pg (26-34); Mean Corpuscular Volume 93.6 fl (80-100); Nucleated Red Blood Cells Absolute Auto 0.000 K/mm3 (0.0-0.012); Nucleated Red Blood Cells Perc 0.0 % (0.0-0.2); Platelet Count Result 250 k/mm3 (150-375); Red Blood Count 4.04 M/mm3 (4.2-5.4); White Blood Count 4.9 K/mm3 (4.5-10.0)
[2025-07-23 18:13] LABS: Alanine Aminotransferase 19 U/L (6-35); Albumin Level 4.3 g/dL (3.5-5.1); Alkaline Phosphatase 64 U/L (38-126); Anion Gap 7 mmol/L (4-12); Aspartate Amino Transferase 27 U/L (14-36); Bilirubin,Total 0.9 mg/dL (0.2-1.3); Blood Urea Nitrogen 11 mg/dL (7-17); Calcium 9.5 mg/dL (8.4-10.2); Carbon Dioxide 25 mmol/L (22-30); Chloride 97 mmol/L (98-107); Estimated CRCL calculation 33 ml/min; Estimated Glomerular Filt Rate 55; Glucose 66 mg/dL (65-110); Lipase 50 U/L (23-300); Magnesium 2.1 mg/dL (1.6-2.3); Potassium 3.5 mmol/L (3.4-5.0); Sodium 129 mmol/L (137-145); Total Protein 6.8 g/dL (6.3-8.2)
[2025-07-23] MEDS: BELLADONNA ALK/PHENOB ELIX 10 ML, MAG HYDROX/ALUMINUM HYD/SIMETH 30 ML, LIDOCAINE 2% VI... PO (18:58)
== END 2025-07-23 19:49 | disposition home or self-care (01) ==
PROVIDERS: Physician Assistant; Emergency Provider Emergency Medicine; PCP Internal Medicine
DX: R11.2 Nausea with vomiting, unspecified (principal); I11.9 Hypertensive heart disease without heart failure; E55.9 Vitamin D deficiency, unspecified; E03.9 Hypothyroidism, unspecified; E78.5 Hyperlipidemia, unspecified; R73.03 Prediabetes; J43.9 Emphysema, unspecified; J32.0 Chronic maxillary sinusitis; K21.9 Gastro-esophageal reflux disease without esophagitis; K44.9 Diaphragmatic hernia without obstruction or gangrene; M19.90 Unspecified osteoarthritis, unspecified site; Z87.891 Personal history of nicotine dependence; Z79.899 Other long term (current) drug therapy; M41.9 Scoliosis, unspecified; M51.369 Other intervertebral disc degeneration, lumbar region without mention of lumbar back pain or lower extremity pain
CPT/HCPCS: 36415; 74177; 80053; 81001; 83605; 83690; 83735; 85025; 87086; 87186; 96361; 96374; 96375; 99284; A9270; J2405; J7030; Q9967

== ENCOUNTER 2025-07-26 13:19 | Observation (INO) | payer MEDICARE, SELFPAY ==
--- NOTE | ~2025-07-26 | XR_ITS ---
EXAM/PROCEDURE: XR abdomen/kub 1V HISTORY: constipation, nausea COMPARISON: July 28 TECHNIQUE: KUB FINDINGS: Contrast into the large intestine has cleared. There are scattered loops of gas dilated bowel present throughout the abdomen and pelvis with gas in the rectosigmoid region. No large amount of free air seen. Bones appear intact. Lung bases clear. IMPRESSION: Interval passage of contrast with no evidence of obstruction. Several loops of gaseous dilated bowel throughout the abdomen and pelvis with nonspecific bowel gas pattern. Reviewed, dictated and finalized at location A. [employer]
--- NOTE | ~2025-07-26 | XR_ITS ---
EXAM/PROCEDURE: XR abdomen/kub 1V HISTORY: constipation, impaction COMPARISON: July 20 TECHNIQUE: KUB FINDINGS: Contrast present throughout the large intestine. Scattered loops of gas dilated small bowel throughout. No large amount of free air. No contrast remains in the stomach. Lung bases appear clear. Bones appear intact. IMPRESSION: Contrast throughout the large intestine. No evidence of obstruction or large amount of free air. Reviewed, dictated and finalized at location A. ING BALL PATCHER IMPRESSION: Contrast throughout the large intestine. No evidence of obstruction or large am ount of free air.
--- NOTE | ~2025-07-26 | XR_ITS ---
EXAM/PROCEDURE: XR UGI water soluble wo kub HISTORY: vomitting, hiatal hernia COMPARISON: None available. Fluoroscopy time: 2.2 minutes DAP: 1.407 Noel per square centimeter Contrast: Approximately 100 mL of water-soluble contrast. TECHNIQUE: Single contrast upper GI FINDINGS: Examination very limited as contrast flowed extremely slowly through the GE junction. Persistent collimation of contrast in the esophagus. There is markedly narrowing of the GE junction consistent with previous fundoplication. No gross anatomic abnormality of the esophagus or stomach seen. The duodenal sweep to the left of midline. IMPRESSION: Very limited single contrast exam with the only discrete finding being very tight narrowing of the GE junction. Correlate with surgical history. Stenosis/stricture associated with scar formation possibly present. Reviewed, dictated and finalized at location A. MAKER IMPRESSION: Very limited single contrast exam with the only discrete finding being very tig ht narrowing of the GE junction. Correlate with surgical history. Stenosis/stri cture associated with scar formation possibly present.
--- NOTE | ~2025-07-26 | US_ITS ---
ULTRASOUND ABDOMEN LIMITED (RIGHT UPPER QUADRANT) Clinical History: vomiting, can't keep anything down Comparison: CT abdomen pelvis 07/23/2025 Technique: Right upper quadrant sonography Findings: Liver: Normal size. Normal echotexture. No intrahepatic biliary ductal dilatation. Normal hepatopedal flow main portal vein. Common Duct: Normal caliber. 4 mm. Gallbladder: Mildly distended. No stones. No wall thickening. No pericholecystic fluid. Negative sonographic Srinivasan's sign per technologist report. Pancreas: Obscured by bowel gas. IMPRESSION: 1. No acute findings. Reviewed, dictated and finalized at location R. STANT OFFICE MANAGER IMPRESSION: 1. No acute findings.
--- NOTE | ~2025-07-26 | NM_ITS ---
EXAM: NM gastric emptying study DATE: 07/27/2025 14:05 INDICATION: Nausea, vomiting and constipation TECHNIQUE: A gastric emptying study was performed using the methodology of Jacky GARCIA, et al. J Nucl Med 2007; 48:568-572. The patient was given a meal consisting of 2 scrambled eggs labeled with 1.059 mCi Tc-99m sulfur colloid, 2 slices of toast, two packages of jam, and approximately 120 mL of water. Simultaneous anterior and posterior 1-min images of the abdomen were obtained with the patient supine at multiple time points over a total period of 4 hours. The geometric mean of anterior and posterior views was determined, and the percentage retention was calculated for each time point. COMPARISON: None. FINDINGS: Gastric retention of the radiotracer-labeled meal was 74%, 69%, and 8% at the 1- hour, 2-hour, and 4-hour time points, respectively. With this technique, apparent rapid gastric emptying is suggested by <30% gastric retention at 1 hour. Delayed gastric emptying is defined by gastric retention of >90% at 1 hour, >60% retention at 2 hours, or >10% retention at 4 hours. IMPRESSION: 1. Delayed gastric emptying with greater than expected activity on the 2 hour images. Reviewed, dictated and finalized at location A. ELING AND CUTTING CONTROL CLERK IMPRESSION: 1. Delayed gastric emptying with greater than expected activity on the 2 hour i mages.
--- NOTE | 2025-07-26 13:55 | ADMGEN ---
This patient, Alisa Baker, was admitted to Medical Room 349-01. Patient/family oriented to hospital policies and general routines including ID bracelet, bed and alarms, visiting hours, pain management, procedures, bathroom and other care routines, personal items, smoking policy, room service/diet, and visiting hours. Information on how to activate the Rapid Response Team has been discussed. Patient/Family are encouraged to report perceived risks to care and to ask questions if they do not understand what they are told or what they should do.
[2025-07-26 14:02] LABS: Hematocrit 38.0 % (37.0-47.0); Hemoglobin 13.0 g/dL (12.0-15.0); Immature Granulocyte Percent A 0.2 % (0-0.5); Lymphocytes Absolute Auto 0.83 K/mm3 (0.9-3.2); Mean Corpuscular HGB Conc 34.2 g/dl (32-36); Mean Corpuscular Hemoglobin 32.0 pg (26-34); Mean Corpuscular Volume 93.6 fl (80-100); Nucleated Red Blood Cells Absolute Auto 0.000 K/mm3 (0.0-0.012); Nucleated Red Blood Cells Perc 0.0 % (0.0-0.2); Platelet Count Result 234 k/mm3 (150-375); Red Blood Count 4.06 M/mm3 (4.2-5.4); White Blood Count 4.9 K/mm3 (4.5-10.0)
[2025-07-26 14:14] LABS: Alanine Aminotransferase 20 U/L (6-35); Albumin Level 4.4 g/dL (3.5-5.1); Alkaline Phosphatase 67 U/L (38-126); Anion Gap 10 mmol/L (4-12); Aspartate Amino Transferase 40 U/L (14-36); Bilirubin,Total 0.9 mg/dL (0.2-1.3); Blood Urea Nitrogen 5 mg/dL (7-17); Calcium 9.8 mg/dL (8.4-10.2); Carbon Dioxide 24 mmol/L (22-30); Chloride 98 mmol/L (98-107); Estimated Glomerular Filt Rate > 60; Glucose 78 mg/dL (65-110); Potassium 3.5 mmol/L (3.4-5.0); Sodium 132 mmol/L (137-145); Total Protein 7.1 g/dL (6.3-8.2)
[2025-07-26 14:17] VITALS: BMI 25.1
--- NOTE | 2025-07-26 14:27 | P.HP_ITS ---
H&P: HPI History of Present Illness Date/Time: 07/26/25 14:27 Chief Complaint: Intractable vomiting Narrative: This is a 80-year-old woman with history of paraesophageal hiatal hernia repair in 2009, HTN, hypothyroidism, emphysema, and chronic constipation. She started GLP-1 for weight loss in early May and after about 3-4 weeks on the medication, she began to notice a bad taste in her mouth. She reportedly lost about 30 lbs in 1 month. She states that anything she tried to take orally had a metallic taste and would make her feel sick. Therefore, she stopped taking Zepbound. She reports developing nausea and vomiting over the past few weeks. She has also been dealing with constipation. She has chronic issues with constipation, but this has been worse over the past 5 weeks. Her last good BM was about 5 weeks ago. She reports taking multiple OTC laxatives over the past few weeks to try and move her bowels but has only had two very small pebble- like bowel movements in the past 5 weeks. She has not been eating much and reports inability to keep any solid foods down and even some liquids. She has been only eating about 1/2 can of soup at a time for nutrition. She reports going days without eating at times. She can keep water and some liquids down, but is still having a terrible taste and at times will immediately vomit whatever she swallowed. She denies any dysphagia, but has also noticed a lot of belching. She is not having any abdominal pain at this time. She has noticed intermittent LLQ pain at times, but not consistently. She had an EGD about a month ago that was normal, and her last colonoscopy was February of 2024 with polypectomy, but no other findings. She has seen her PCP for her issues and actually was evaluated in the ED 3 days ago due to her vomiting. CT scan of the abdomen and pelvis showed a distended gallbladder, proximal fecal impaction, a large hiatal hernia, significant calcific changes at the origin of the superior mesenteric artery, and scoliosis. Labs revealed hyponatremia with sodium of 129, but otherwise were unremarkable. Her had been researching her symptoms and was concerned it was her gallbladder causing her issues, so she was already scheduled for an appointment with Dr. Garcia on . She was discharged from the ER and was planning to see him as an outpatient this week. The patient continued to have issues over the weekend and has been unable to tolerate oral intake with intractable vomiting. She is being directly admitted in this setting for IV fluidsa nd further testing. Review of Systems Review of Systems: All systems reviewed & are unremarkable except as noted in HPI and below PMFSH Past Medical History Medical History Hiatal hernia BMI 25.0-25.9,adult Dyspepsia Constipation Hyponatremia BMI 27.0-27.9,adult Nausea and vomiting Chest discomfort Breast cancer screening Emphysema of lung COPD (chronic obstructive pulmonary disease) URI (upper respiratory infection) Grade I diastolic dysfunction Pre-diabetes Encounter for routine adult health examination with abnormal findings Positive colorectal cancer screening using Cologuard test Facial pain TMJ (temporomandibular joint disorder) Change in heart murmur Encounter for routine adult health examination without abnormal findings BMI 28.0-28.9,adult Colon cancer screening Follow up Abnormal CT scan, sinus Chronic bronchitis BMI 30.0-30.9,adult BMI 29.0-29.9,adult Encounter for Medicare annual wellness exam Vitamin D deficiency, unspecified Right hand pain Needs flu shot Lymphadenopathy of head and neck Hypothyroidism, unspecified Expiratory wheezing Essential (primary) hypertension Encounter for screening for lipoid disorders Dysfunction of both eustachian tubes Dizziness Dietary counseling and surveillance (06/21/15) Dermatitis Chronic maxillary sinusitis Anxiety attack Otalgia of both ears Impacted cerumen of left ear Low back pain Post-menopausal Thoracic spondylosis Lung nodule Seasonal allergies Cough variant asthma Cerumen impaction Eustachian tube dysfunction Contact dermatitis Hyperlipidemia DJD (degenerative joint disease), multiple sites Chronic cough PLATT (dyspnea on exertion) 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 Hypothyroidism (acquired) Benign essential hypertension Surgical History Surgical History History of repair of hiatal hernia Paraesophageal hiatal hernia repair in 2009 History of abdominoplasty S/P bunionectomy S/P foot surgery, right Hx of sinus surgery Family History Family History Mother Family history of lung cancer Dementia Father Family history of emphysema COPD Asthma Sibling ASHD (arteriosclerotic heart disease) Hx of myocardial infarction Heart disease Social History Social History Smoking packs per day: 2 Smoking cigarettes per day: 40.0 Years smoked: 10 Smoking pack-years: 20.00 Smoking status: Former smoker Tobacco type: cigarettes Second hand tobacco smoke exposure: No Additional smoking assessment comments: QUIT 1993~ Alcohol intake: never Substance use: never Substance use type: does not use Lack of Transportation: No Lack of Food: Never True Current Housing: I Have Housing Concerned About Future Housing: No Difficulty Paying Gas/Electric Bills: No Difficulty Paying for Meds: No Currently Unemployed: No Education: High School Diploma/GED Difficulty w/ Childcare or Family Care: No Living arrangements: with family Gender identity (if verbalized by the patient): Female Spiritual care concerns: No Meds Home Medications and Allergies Home Medications ?Medication ?Instructions ?Recorded ?Confirmed ?Type Home Nebulizer machine #1 ea 12/12/22 07/20/25 Rx flutter valve #1 ea 12/02/24 07/20/25 Rx nortriptyline 10 mg capsule 20 mg (2 x 10 mg) PO QHS # 180 caps 12/15/24 07/20/25 Rx montelukast 10 mg tablet 10 mg PO DAILY #90 tabs 05/0607/20/25 Rx (Singulair) meloxicam 15 mg tablet See Rx Instructions .Route 0 02/19/25 07/20/25 Rx .COMPLEX #90 tabs hydrochlorothiazide 12.5 mg tablet 12.5 mg PO DAILY #9 0 tabs 02/25/25 07/20/25 Rx losartan 100 mg tablet See Rx Instructions .Route 0 03/22/25 07/20/25 Rx .COMPLEX #90 tabs diltiazem HCl 240 mg capsule,24 See Rx Instructions .R oute 04/01/25 07/20/25 Rx hr,extended release .COMPLEX #180 caps albuterol sulfate 2.5 mg/3 mL 2.5 mg (3 mL) inhalation Q6H PRN 04/29/25 07/20/25 Rx (0.083 %) solution for nebulization copd #90 mL benzonatate 200 mg capsule 200 mg PO TID PRN cough #30 caps 04/29/25 07/20/25 Rx levothyroxine 50 mcg tablet See Rx Instructions .Route 05/03/25 07/20/25 Rx .COMPLEX #90 tabs albuterol 90 mcg-budesonide 80 2 inh inhalation ONCE 1 07/20/25 History mcg/actuation HFA aerosol inhaler (Airsupra) nitroglycerin 0.4 mg sublingual 0.4 mg sublingual Q5M PRN chest 05/14/25 07/20/25 History tablet pain rosuvastatin 10 mg tablet See Rx Instructions .Route 1 07/20/25 Rx .COMPLEX #90 tabs tirzepatide (weight loss) 5 mg/0.5 5 mg (0.5 mL) subcu t WEEKLY #2 mL 05/31/25 07/20/25 Rx mL subcutaneous solution (Zepbound) Held on 07/01/25. Instructions: Pt stopped 1 week ago due to nausea/EGD budesonide 160 mcg-glycopyr 9 2 inh inhalation BID #10 .7 grams 06/14/25 07/20/25 Rx mcg-formot 4.8 mcg/actuation HFA inhaler (Breztri Aerosphere) ondansetron HCl 8 mg tablet 8 mg PO Q8H PRN nausea and 06/22/25 07/20/25 Rx vomiting #90 tabs pantoprazole 40 mg tablet,delayed See Rx Instructions .Route 07/13/25 07/20/25 Rx release .COMPLEX #180 tabs promethazine 25 mg tablet 25 mg PO QID PRN nausea and 07/20/25 07/20/25 Rx vomiting #120 tabs sucralfate 1 gram tablet 1 g PO BID #60 tabs 07/23/25 Rx Allergies Allergy/AdvReac Type Severity Reaction Status Date / Time neomycin Allergy Intermediate Rash Verified 07/26/25 14:22 Exam Const: General: comfortable and no acute distress Nutritional Appearance: average body habitus Orientation/consciousness: patient oriented x3 HENMT: Head: normocephalic and atraumatic Ears: hearing grossly normal bilaterally Mouth: Yes moist mucous membranes Eyes: General: appearance normal, both eyes and all related structures Pupils: Equal, round and reactive pupils present Neck: Neck: normal visual inspection and full ROM Resp: Effort & Inspection: no respiratory distress Auscultation: clear to auscultation bilaterally Cardio: Rate: regular rate Rhythm: regular rhythm Peripheral pulses: Peripheral pulses 2+ throughout GI: Inspection: non-distended, scar (midline scar and horizontal suprapubic scar from abdominoplasty) and no visible herniation GI Palp: Yes Soft to palpation, No Tenderness to palpation present (GI), No Guarding due to palpation present (GI), Yes No hepatosplenomegaly present and No Rebound tenderness present Percussion: Yes normal to percussion Auscultation: normal bowel sounds Rectal Exam: deferred Skin: General skin exam: normal color Neuro: General: moves all extremities and no focal motor deficits Speech: normal speech Motor exam (neuro): 5/5 motor strength present throughout Extrem: General: normal to inspection and no edema Psych: Mental Status: mental status grossly normal Attitude: cooperative Insight: Good insight present (Psych) Judgement: Good judgement present (Psych) Results Labs Labs: Short CBC 07/26/25 Range/Units 13:56 WBC 4.9 (4.5-10.0) K/mm3 Hgb 13.0 (12.0-15.0) g/dL Hct 38.0 (37.0-47.0) % Plt Count 234 (150-375) k/mm3 BMP 07/26/25 13:56 Sodium 132 L Potassium 3.5 Chloride 98 Carbon Dioxide 24 BUN 5 L D Creatinine 0.85 Glucose 78 Calcium 9.8 Liver Function 07/26/25 Range/Units 13:56 Total Bilirubin 0.9 (0.2-1.3) mg/dL AST 40 H (14-36) U/L ALT 20 (6-35) U/L Alkaline Phosphatase 67 (38-126) U/L Albumin 4.4 (3.5-5.1) g/dL Assessment and Plan Assessment and plan (1) Intractable vomiting with nausea: Code(s): R11.2 - Nausea with vomiting, unspecified Status: Acute Assessment and Plan: * The patient presents with intractable nausea and vomiting for the past few weeks that has progressed. She was recently prescribed a GLP-1 in May and had complications with this medication that resulted in discontinuing the GLP- 1. She has also been dealing with constipation over the past 5 weeks. We would recommend ordering a stat water-soluble upper GI to rule out paraesophageal hiatal hernia with obstruction or gastric outlet obstruction. Other possibilities that could be causing her symptoms could be her gallbladder or severe constipation. Her CT scan 3 days ago showed a large volume of stool throughout her colon and a distended gallbladder, but no cholelithiasis or other signs of cholecystitis. We have also ordered a RUQ ultrasound to evaluate the gallbladder. Will await these initial test results and start her on IV fluids for hydration. Will keep her NPO for the tests, but she could have sips of clear liquids after if she is able to tolerate this. May consider a HIDA scan tomorrow if her upper GI does not show any obvious reasons for her intractable vomiting. Will follow along and determine further plans depending on workup. (2) History of repair of hiatal hernia: Code(s): Z98.890 - Other specified postprocedural states; Z87.19 - Personal history of other diseases of the digestive system Status: Acute Assessment and Plan: * Patient had an open paraesophageal hiatal hernia repair in 2009. (3) Abnormal findings on diagnostic imaging of gallbladder: Code(s): R93.2 - Abnormal findings on diagnostic imaging of liver and biliary tract Status: Acute Assessment and Plan: * CT showing gallbladder distention. RUQ US ordered. (4) Constipation: Qualifiers: Constipation type: unspecified constipation type Qualified Code(s): K59.00 - Constipation, unspecified Code(s): K59.00 - Constipation, unspecified Status: Acute Assessment and Plan: * Will await initial tests results before giving any bowel stimulation, but will monitor closely. The water-soluble contrast may actually be therapeutic for her constipation. (5) Hiatal hernia: Code(s): K44.9 - Diaphragmatic hernia without obstruction or gangrene Status: Chronic Assessment and Plan: * Appears larger on the recent CT scan done 3 days ago. Will await upper GI results. If she were to have a volvulus or obstruction related to her recurrent hiatal hernia, then she would likely require transfer to a tertiary care facility for surgical intervention as this is a recurrence. (6) Emphysema of lung: Code(s): J43.9 - Emphysema, unspecified Status: Acute Assessment and Plan: * Reports a history of emphysema. COPD is also mentioned in her EMR. She is not a smoker and is not currently having any acute issues with this at this time. Plan I have discussed the patient's case, recommendations, and treatment plan with Dr. Garcia.
--- NOTE | 2025-07-26 14:29 | PC.NURSE ---
pt to US via wheelchair
[2025-07-26 15:34] VITALS: BP 134/63; PULSE 62; RESP 14; TEMP 36.6; O2SAT 98
[2025-07-26 17:15] LABS: Add Urine Microscopic? YES; Appearance Urine Cloudy (Clear); Glucose Urine UA Negative (Negative); Leukocyte Esterase Ur 1+ LEU/UL (Negative); Nitrate Urine Negative (Negative); Non Pathogenic Casts 0-2; Specific Grav Ur 1.014 (1.001-1.035)
[2025-07-26] MEDS: DEXTROSE 5%/LACTATED RINGERS 1,000 ML 100 ML IV CONT (17:21)
--- NOTE | 2025-07-26 19:15 | P.CONIM_ITS ---
Assessment and Plan Assessment and plan (1) Intractable vomiting with nausea: Code(s): R11.2 - Nausea with vomiting, unspecified Status: Acute Assessment and Plan: The patient presents to [facility] as a direct admission on 07/26 with intractable dysgeusia, anorexia, weight loss, and worsening constipation x5-6 weeks. Initial concern recurrent hiatal hernia was etiology for patient's symptoms. However general surgery reviewed and it remains unchanged radiographically. CT scan from 07/23/2025 showed mild gallbladder distension. Concern now for biliary or other GI causes for her current symptoms. GI consulted. General surgery primary. Prior Studies: * EGD (07/02/25):?Unremarkable. * CT scan (07/23/25):?Reviewed with?Dr. Loza; compared to prior CT from March 2024?no change or possibly a smaller hiatal hernia. * Water-soluble upper GI:?Compared with prior study from 2014?no significant difference noted. * Gallbladder ultrasound (07/26/25):?Normal gallbladder, no stones. * CT scan (07/23/25):?Mild gallbladder distention, otherwise normal. - GI consulted:?Dr. Mukherjee, who performed the EGD on 07/02/2025, has been re- consulted for reassessment and possible repeat EGD given her change in symptoms. - order?HIDA scan with CCK?for tomorrow to evaluate for possible acalculous chronic cholecystitis. - bowel regimen:?Start?Metamucil 1 tbsp orally BID?and?mineral oil 1 tbsp orally BID?to aid in alleviating stool retention per general surgery recommendations - IV fluids:? - monitor labs, currently stable with no significant renal dysfunction or electrolyte abnormalities - further management?pending results of HIDA scan and Dr. Mukherjee?s evaluation. - continue pantoprazole and Carafate (2) History of repair of hiatal hernia: Code(s): Z98.890 - Other specified postprocedural states; Z87.19 - Personal history of other diseases of the digestive system Status: Acute Assessment and Plan: Patient has history of open paraesophageal hiatal hernia repair in 2009. She has since for had recurrence of a hiatal hernia, however currently appears unchanged when compared to previous studies. - general surgery primary (3) Abnormal findings on diagnostic imaging of gallbladder: Code(s): R93.2 - Abnormal findings on diagnostic imaging of liver and biliary tract Status: Acute Assessment and Plan: CT from 07/23 showed gallbladder distension. Right upper quadrant ultrasound performed today, 07/26, and it showed a mildly distended gallbladder with no stones/wall thickening/pericholecystic fluid and had a negative Srinivasan sign. - GI consulted (4) Constipation: Qualifiers: Constipation type: unspecified constipation type Qualified Code(s): K 59.00 - Constipation, unspecified Code(s): K59.00 - Constipation, unspecified Status: Acute Assessment and Plan: Per general surgery planned. Awaiting initial test results prior to giving the bowel stimulation, however being closely monitored. Upper GI series performed today (07/26) which may be therapeutic for constipation. She was then placed on Metamucil a tbsp b.i.d. as well as mineral oil 1 tbsp b.i.d. via the GS service to start the process of eradicating the retained stool in her colon. - Metamucil tbsp b.i.d. - mineral oil 1 tbsp b.i.d. - further plan of care dependent on GI recommendations and HIDA scan on 07/27 (5) Hiatal hernia: Code(s): K44.9 - Diaphragmatic hernia without obstruction or gangrene Status: Chronic Assessment and Plan: Hiatal hernia appeared initially larger than recent CT scan. However it was reviewed by the general surgeon Na believed the hiatal hernia is relatively unchanged not smaller. Upper GI a series completed, awaiting review by the surgical team. However they note if she were to have a volvulus or obstruction related to her recurrent hiatal hernia, she would likely require transfer to a tertiary care center for surgical intervention as this has been a recurrence. (6) Benign essential hypertension: Code(s): I10 - Essential (primary) hypertension Status: Chronic Assessment and Plan: - chronic, currently 134/63, stable. - continue home medications: HCTZ, losartan, diltiazem - monitor (7) Hyperlipidemia: Qualifiers: Hyperlipidemia type: unspecified Qualified Code(s): E78.5 - Hyperlipidemia, unspecified Code(s): E78.5 - Hyperlipidemia, unspecified Status: Chronic Assessment and Plan: - continue rosuvastatin 10 mg daily (8) COPD (chronic obstructive pulmonary disease): Qualifiers: COPD type: emphysema Emphysema type: unspecified Qualified Code(s): J 43.9 - Emphysema, unspecified Code(s): J44.9 - Chronic obstructive pulmonary disease, unspecified Status: Acute Assessment and Plan: No current evidence of asthma/COPD exacerbation. - continue home medications: Singulair, albuterol p.r.n., airsupra daily Plan Diet: NPO GI Prophylaxis: Pantoprazole DVT Prophylaxis: SCDs, Lovenox IV fluids: D5/LR at 100 mL/hour Lines/Tubes: pIV Code Status: Full code Prior Studies I have reviewed the following patient records and this information was taken into consideration when formulating the assessment and plan.: previous labs, previous ER visits, previous hospitalizations and previous clinic visits Time Spent with Patient Time with patient: less than 45 minutes HPI Date of Consult Consult date: 07/26/25 Requesting Physician: Jaylon Garcia MD Primary Care Provider: Octavio Daniels MD Consult Narrative Reason for consult: Medical Management Narrative: 80 y/o F with PMH of paraesophageal hiatal hernia repair in 2009, HTN, hypothyroidism, emphysema, and chronic constipation presents here with intractable nausea and vomiting. The patient presented here on 07/26 as a direct admission for further evaluation of intractable nausea and vomiting. She initially began experiencing worsening constipation over the past 6 weeks (early Jun). Her last normal bowel movement was approximately 5 weeks ago, since then she has had no normal bowel movement and describes her current bowel movements as small, dry pellets intermittently. She has chronic constipation at baseline, however this is significantly worse. This is been complicated by a a bad taste in her mouth that has been ongoing since May. She initially attributed the symptoms to starting set bound for weight loss which she took for approximately 3 weeks and was able to lose 30 lb. However despite discontinuation of this medication, she has had continued metallic/bad taste in her mouth. She has previously had a similar bout of symptoms when she had COVID last spring but resolved after 6 weeks. Patient then had short episode in February, however this lasted for only few days and resolved spontaneously. She now notes that majority of foods and even water tastes terrible. This has caused her to gag when swallowing, no vomiting, and continued weight loss due to poor p.o. intake. When she does have emesis she describes it as white or clear. She has a past GI/surgical history significant for a paraesophageal hiatal hernia 2009 he s/p open repair (more so done for SOB vs GI symptoms). Five years post surgery she developed a recurrent small hiatal hernia with reflux symptoms that was initially adequately controlled with acid reducing medication. Lab work: No leukocytosis, no anemia, sodium 132, creatinine 0.85 and GFR >60, no significant electrolyte derangements, AST 40, and UA was cloudy with 3+ ketones/1+ leuk history/21-50 WBC with occasional epithelial cells (likely contaminated). Imaging: CT abdomen/pelvis (07/23) showed a distended gallbladder without edema or calcified stones, significant calcific changes at the origin of the SMA, moderate fecal impaction of proximal colon, scoliosis of the lumbar spine with severe multilevel DDD, hiatus hernia. Abdominal ultrasound (RUQ) showed no acute findings. Upper GI series showed a very limited single contrast exam with only discrete findings be very tight narrowing of did GE junction, correlate with surgical history, stenosis/stricture so she was car formation possibly present. VS upon admission: 98? F, HR 62, R 14, 134/63, and 98% on RA. Review of Systems 2 Review of Systems: All systems reviewed & are unremarkable except as noted in HPI and below PMFSH Past Medical History Medical History Claustrophobia Hiatal hernia Dyspepsia Constipation Hyponatremia Breast cancer screening Emphysema of lung COPD (chronic obstructive pulmonary disease) Grade I diastolic dysfunction Pre-diabetes Encounter for routine adult health examination with abnormal findings Positive colorectal cancer screening using Cologuard test TMJ (temporomandibular joint disorder) Change in heart murmur Encounter for routine adult health examination without abnormal findings Colon cancer screening Follow up Chronic bronchitis Encounter for Medicare annual wellness exam Vitamin D deficiency, unspecified Lymphadenopathy of head and neck Essential (primary) hypertension Encounter for screening for lipoid disorders Dysfunction of both eustachian tubes Dietary counseling and surveillance (06/21/15) Chronic maxillary sinusitis Anxiety attack Post-menopausal Thoracic spondylosis Lung nodule Seasonal allergies Cough variant asthma Eustachian tube dysfunction Hyperlipidemia DJD (degenerative joint disease), multiple sites On manager terminal drug therapy Hypothyroidism (acquired) Surgical History Surgical History History of bilateral cataract extraction History of appendectomy History of repair of hiatal hernia Paraesophageal hiatal hernia repair in 2010 History of abdominoplasty S/P bunionectomy S/P foot surgery, right Hx of sinus surgery Family History Family History Mother Family history of lung cancer Dementia Father Family history of emphysema COPD Asthma Sibling ASHD (arteriosclerotic heart disease) Hx of myocardial infarction Heart disease Social History Social History Smoking packs per day: 2 Smoking cigarettes per day: 40.0 Years smoked: 10 Smoking pack-years: 20.00 Smoking status: Former smoker Tobacco type: cigarettes Second hand tobacco smoke exposure: No Additional smoking assessment comments: QUIT 1992~ Alcohol intake: never Substance use: never Substance use type: does not use Lack of Transportation: No Lack of Food: Never True Current Housing: I Have Housing Concerned About Future Housing: No Difficulty Paying Gas/Electric Bills: No Difficulty Paying for Meds: No Currently Unemployed: No Education: High School Diploma/GED Difficulty w/ Childcare or Family Care: No Living arrangements: with family Gender identity (if verbalized by the patient): Female Spiritual care concerns: No Meds Home Medications and Allergies Home Medications ?Medication ?Instructions ?Recorded ?Confirmed ?Type Home Nebulizer machine #1 ea 12/12/22 07/26/25 Rx flutter valve #1 ea 12/02/24 07/26/25 Rx montelukast 10 mg tablet 10 mg PO DAILY #90 tabs 06/0 05/0607/26/25 Rx (Singulair) meloxicam 15 mg tablet See Rx Instructions .Route 0 02/19/25 07/26/25 Rx .COMPLEX #90 tabs hydrochlorothiazide 12.5 mg tablet 12.5 mg PO DAILY #9 0 tabs 02/25/25 07/26/25 Rx losartan 100 mg tablet See Rx Instructions .Route 0 03/22/25 07/26/25 Rx .COMPLEX #90 tabs diltiazem HCl 240 mg capsule,24 See Rx Instructions .R oute 04/01/25 07/26/25 Rx hr,extended release .COMPLEX #180 caps albuterol sulfate 2.5 mg/3 mL 2.5 mg (3 mL) inhalation Q6H PRN 04/29/25 07/26/25 Rx (0.083 %) solution for nebulization copd #90 mL benzonatate 200 mg capsule 200 mg PO TID PRN cough #30 caps 04/29/25 07/26/25 Rx levothyroxine 50 mcg tablet See Rx Instructions .Route 05/03/25 07/26/25 Rx .COMPLEX #90 tabs albuterol 90 mcg-budesonide 80 2 inh inhalation ONCE 1 07/26/25 History mcg/actuation HFA aerosol inhaler (Airsupra) rosuvastatin 10 mg tablet See Rx Instructions .Route 1 07/26/25 Rx .COMPLEX #90 tabs ondansetron HCl 8 mg tablet 8 mg PO Q8H PRN nausea and 06/22/25 07/26/25 Rx vomiting #90 tabs pantoprazole 40 mg tablet,delayed See Rx Instructions .Route 07/13/25 07/26/25 Rx release .COMPLEX #180 tabs sucralfate 1 gram tablet 1 g PO BID #60 tabs 07/23/25 07/26/25 Rx Allergies Allergy/AdvReac Type Severity Reaction Status Date / Time neomycin Allergy Intermediate Rash Verified 07/26/25 14:22 Vital Signs Vital Signs - 24 hr 07/26/25 14:33 07/26/25 15:34 Temperature 98 F Pulse Rate 62 Respiratory Rate 14 Blood Pressure 134/63 Pulse Oximetry 98 Oxygen Delivery Room Air Exam 2 Const: General: comfortable and no acute distress Other: , female, nontoxic appearance HENMT: Face/Nose/Sinus: Normal nares present Mouth: Yes moist mucous membranes Eyes: General: appearance normal, both eyes and all related structures S clera: sclerae normal Pupils: Equal, round and reactive pupils present E OM: EOMs intact bilaterally Resp: Effort & Inspection: normal respiratory effort Auscultation: clear to auscultation bilaterally Cardio: Rate: regular rate Rhythm: regular rhythm Other: S1-S2 present without murmur, rub, ectopy GI: Other: Abdomen soft and nondistended. Hyperactive bowel sounds in all quadrants. No tenderness on exam. Skin: General skin exam: normal color and no rashes or lesions noted W ounds: no wounds Neuro: Speech: normal speech Motor exam (neuro): 5/5 motor strength present throughout Sensory Exam: normal sensation Other: A&O x4 Extrem: General: normal to inspection Psych: Mental Status: mental status grossly normal Affect: normal affect Other: Good insight and judgment, very pleasant Results Labs 07/26/25 13:56 07/26/25 13:56 Labs: Short CBC 07/26/25 Range/Units 13:56 WBC 4.9 (4.5-10.0) K/mm3 Hgb 13.0 (12.0-15.0) g/dL Hct 38.0 (37.0-47.0) % Plt Count 234 (150-375) k/mm3 BMP 07/26/25 13:56 Sodium 132 L Potassium 3.5 Chloride 98 Carbon Dioxide 24 BUN 5 L D Creatinine 0.85 Glucose 78 Calcium 9.8 Liver Function 07/26/25 Range/Units 13:56 Total Bilirubin 0.9 (0.2-1.3) mg/dL AST 40 H (14-36) U/L ALT 20 (6-35) U/L Alkaline Phosphatase 67 (38-126) U/L Albumin 4.4 (3.5-5.1) g/dL Urine 07/26/25 Range/Units 16:55 Urine Color Yellow (Yellow) Urine Appearance Cloudy H (Clear) Urine pH 5.0 (5.0-9.0) Ur Specific [place] 1.014 (1.001-1.035) Urine Protein Trace (Negative) mg/dL Urine Glucose (UA) Negative (Negative) mg/dL Quality VTE Prophylaxis VTE prophylaxis: mechanical ordered Hospitalist MIPS Advance Care Plan I have confirmed that the patient's Advanced Care Plan is present, code status is documented, or surrogate decision maker is listed in patient medical record.: Yes Medication Reconciliation I have utilized all available resources to obtain, update and review the patients current medications (includes all prescriptions, OTC, herbals, cannabis, and nutritional supplements).: Yes
--- NOTE | 2025-07-26 19:25 | P.CONGI_ITS ---
Assessment and Plan Assessment and plan (1) Dysgeusia: Code(s): R43.2 - Parageusia Status: Acute Plan -The patient's chronic baseline sensation of gas bloat and dyspepsia following her distant hiatal hernia repair is a common post-fundoplication sequela, but her current intolerable symptoms and dysgeusia represent a likely exacerbation induced by the GLP-1 agonist (Zepbound), which can persist for weeks after discontinuation. - Given the absence of abdominal pain, acute gallbladder pathology is unlikely, and though a HIDA scan might show delayed ejection fraction potentially stemming from the recent GLP-1 cessation, cholecystectomy is generally discouraged as it may not resolve her primary symptoms. - Furthermore, a repeat EGD shortly after a normal one will not yield useful management information, and the Upper GI series finding of stenosis at the EG junction more likely represents esophageal emptying delay, a known effect of GLP-1 agonists. - Therefore, to best identify the cause of her current symptomatology, we suggest obtaining a gastric emptying study; if a significant delay is documented, her therapeutic regimen will be optimized by adding a prokinetic agent. GI Consult Note Consult date/time: 07/26/25 19:25 Reason for consult: Nausea-food intolerance HPI: Alisa Baker is a 80-year-old female with a history of paraesophageal hernia repair in 2009, resulting in chronic complaints of early satiety and abdominal bloating. Her current symptoms of intolerable dysgeusia, nausea, and severe epigastric fullness, along with five weeks of [place] Type 1 constipation, began after completing a course of six Zepbound injections, with the last dose given four weeks ago. - EGD performed three weeks ago was normal, an Upper GI series today suggests possible stenosis at the GE junction; however, a CT scan during this admission only described a hiatal hernia. Laboratory data today show a WBC of 4.9, hemoglobin 13, platelet count 234, sodium 132, potassium 3.5, creatinine 0.85, AST 40, and ALT 20. She denies abdominal pain, dysphagia, rectal bleeding, vomiting, or hematemesis. Review of Systems 2 Constitutional: Constitutional: Reports no additional constitutional complaints, Denies body ache(s), Denies chills and Denies fatigue Cardiovascular: Cardiovascular: Denies chest pain Respiratory: Respiratory: Reports no additional respiratory complaints and Denies chest congestion Gastrointestinal: Gastrointestinal: Denies abdominal pain, Denies melena, Reports bloating, Reports constipation, Denies diarrhea, Reports nausea and Denies vomiting REPLACED BY [facility] Past Medical History Medical History Hiatal hernia BMI 25.0-25.9,adult Dyspepsia Constipation Hyponatremia BMI 27.0-27.9,adult Nausea and vomiting Chest discomfort Breast cancer screening Emphysema of lung COPD (chronic obstructive pulmonary disease) URI (upper respiratory infection) Grade I diastolic dysfunction Pre-diabetes Encounter for routine adult health examination with abnormal findings Positive colorectal cancer screening using Cologuard test Facial pain TMJ (temporomandibular joint disorder) Change in heart murmur Encounter for routine adult health examination without abnormal findings BMI 28.0-28.9,adult Colon cancer screening Follow up Abnormal CT scan, sinus Chronic bronchitis BMI 30.0-30.9,adult BMI 29.0-29.9,adult Encounter for Medicare annual wellness exam Vitamin D deficiency, unspecified Right hand pain Needs flu shot Lymphadenopathy of head and neck Hypothyroidism, unspecified Expiratory wheezing Essential (primary) hypertension Encounter for screening for lipoid disorders Dysfunction of both eustachian tubes Dizziness Dietary counseling and surveillance (06/21/15) Dermatitis Chronic maxillary sinusitis Anxiety attack Otalgia of both ears Impacted cerumen of left ear Low back pain Post-menopausal Thoracic spondylosis Lung nodule Seasonal allergies Cough variant asthma Cerumen impaction Eustachian tube dysfunction Contact dermatitis Hyperlipidemia DJD (degenerative joint disease), multiple sites Chronic cough PLATT (dyspnea on exertion) On halfway drug therapy Hypothyroidism (acquired) Benign essential hypertension Surgical History Surgical History History of repair of hiatal hernia Paraesophageal hiatal hernia repair in 2009 History of abdominoplasty S/P bunionectomy S/P foot surgery, right Hx of sinus surgery Family History Family History Mother Family history of lung cancer Dementia Father Family history of emphysema COPD Asthma Sibling ASHD (arteriosclerotic heart disease) Hx of myocardial infarction Heart disease Social History Social History Smoking packs per day: 2 Smoking cigarettes per day: 40.0 Years smoked: 10 Smoking pack-years: 20.00 Smoking status: Former smoker Tobacco type: cigarettes Second hand tobacco smoke exposure: No Additional smoking assessment comments: QUIT 1992~ Alcohol intake: never Substance use: never Substance use type: does not use Lack of Transportation: No Lack of Food: Never True Current Housing: I Have Housing Concerned About Future Housing: No Difficulty Paying Gas/Electric Bills: No Difficulty Paying for Meds: No Currently Unemployed: No Education: High School Diploma/GED Difficulty w/ Childcare or Family Care: No Living arrangements: with family Gender identity (if verbalized by the patient): Female Spiritual care concerns: No Meds Home Medications and Allergies Home Medications ?Medication ?Instructions ?Recorded ?Confirmed ?Type Home Nebulizer machine #1 ea 12/12/22 07/20/25 Rx flutter valve #1 ea 12/02/24 07/20/25 Rx montelukast 10 mg tablet 10 mg PO DAILY #90 tabs 0605/0607/26/25 Rx (Singulair) meloxicam 15 mg tablet See Rx Instructions .Route 0 02/19/25 07/26/25 Rx .COMPLEX #90 tabs hydrochlorothiazide 12.5 mg tablet 12.5 mg PO DAILY #9 0 tabs 02/25/25 07/26/25 Rx losartan 100 mg tablet See Rx Instructions .Route 0 03/22/25 07/26/25 Rx .COMPLEX #90 tabs diltiazem HCl 240 mg capsule,24 See Rx Instructions .R oute 04/01/25 07/26/25 Rx hr,extended release .COMPLEX #180 caps albuterol sulfate 2.5 mg/3 mL 2.5 mg (3 mL) inhalation Q6H PRN 04/29/25 07/26/25 Rx (0.083 %) solution for nebulization copd #90 mL benzonatate 200 mg capsule 200 mg PO TID PRN cough #30 caps 04/29/25 07/26/25 Rx levothyroxine 50 mcg tablet See Rx Instructions .Route 05/03/25 07/26/25 Rx .COMPLEX #90 tabs albuterol 90 mcg-budesonide 80 2 inh inhalation ONCE 1 07/26/25 History mcg/actuation HFA aerosol inhaler (Airsupra) rosuvastatin 10 mg tablet See Rx Instructions .Route 1 07/26/25 Rx .COMPLEX #90 tabs ondansetron HCl 8 mg tablet 8 mg PO Q8H PRN nausea and 06/22/25 07/26/25 Rx vomiting #90 tabs pantoprazole 40 mg tablet,delayed See Rx Instructions .Route 07/13/25 07/26/25 Rx release .COMPLEX #180 tabs sucralfate 1 gram tablet 1 g PO BID #60 tabs 07/23/25 07/26/25 Rx Allergies Allergy/AdvReac Type Severity Reaction Status Date / Time neomycin Allergy Intermediate Rash Verified 07/26/25 14:22 Vital Signs Vital Signs - 24 hr 07/26/25 14:33 07/26/25 15:34 Temperature 98 F Pulse Rate 62 Respiratory Rate 14 Blood Pressure 134/63 Pulse Oximetry 98 Oxygen Delivery Room Air Exam 2 Const: General: comfortable and no acute distress Resp: Effort & Inspection: normal respiratory effort Auscultation: clear to auscultation bilaterally Cardio: Rate: regular rate Rhythm: regular rhythm GI: Inspection: non-distended Auscultation: normal bowel sounds Results Labs 07/26/25 13:56 07/26/25 13:56 Labs: Short CBC 07/26/25 Range/Units 13:56 WBC 4.9 (4.5-10.0) K/mm3 Hgb 13.0 (12.0-15.0) g/dL Hct 38.0 (37.0-47.0) % Plt Count 234 (150-375) k/mm3 [facility] 07/26/25 13:56 Sodium 132 L Potassium 3.5 Chloride 98 Carbon Dioxide 24 BUN 5 L D Creatinine 0.85 Glucose 78 Calcium 9.8 Liver Function 07/26/25 Range/Units 13:56 Total Bilirubin 0.9 (0.2-1.3) mg/dL AST 40 H (14-36) U/L ALT 20 (6-35) U/L Alkaline Phosphatase 67 (38-126) U/L Albumin 4.4 (3.5-5.1) g/dL Urine 07/26/25 Range/Units 16:55 Urine Color Yellow (Yellow) Urine Appearance Cloudy H (Clear) Urine pH 5.0 (5.0-9.0) Ur Specific [place] 1.014 (1.001-1.035) Urine Protein Trace (Negative) mg/dL Urine Glucose (UA) Negative (Negative) mg/dL
[2025-07-26 20:46] VITALS: BP 134/58; PULSE 61; RESP 16; TEMP 36.8; O2SAT 95
--- NOTE | 2025-07-26 22:52 | PC.NURSE ---
Gretta Espinosa NP consultation was documented @1430. Her shift did not start until 1700 which shift starts at 1700, she was aware at that time.
[2025-07-26] MEDS: ONDANSETRON INJ 4 MG/2 ML VIAL IV PUSH (23:44)
[2025-07-26 23:46] VITALS: BP 149/51; PULSE 56; RESP 16; TEMP 36.9; O2SAT 98
[2025-07-27] MEDS: DEXTROSE 5%/LACTATED RINGERS 1,000 ML 100 ML IV CONT ×2 (03:00→18:11)
[2025-07-27 04:00] VITALS: BP 115/53; PULSE 59; RESP 16; TEMP 36.8; O2SAT 96
[2025-07-27 06:02] LABS: Hematocrit 33.8 % (37.0-47.0); Hemoglobin 11.3 g/dL (12.0-15.0); Mean Corpuscular HGB Conc 33.4 g/dl (32-36); Mean Corpuscular Hemoglobin 31.6 pg (26-34); Mean Corpuscular Volume 94.4 fl (80-100); Platelet Count Result 213 k/mm3 (150-375); Red Blood Count 3.58 M/mm3 (4.2-5.4); White Blood Count 4.4 K/mm3 (4.5-10.0)
[2025-07-27 06:33] LABS: Anion Gap 1 mmol/L (4-12); Blood Urea Nitrogen 4 mg/dL (7-17); Calcium 8.8 mg/dL (8.4-10.2); Carbon Dioxide 30 mmol/L (22-30); Chloride 102 mmol/L (98-107); Estimated CRCL calculation 43 ml/min; Estimated Glomerular Filt Rate > 60; Glucose 122 mg/dL (65-110); Potassium 3.3 mmol/L (3.4-5.0); Sodium 133 mmol/L (137-145)
[2025-07-27 08:00] VITALS: BP 139/54; PULSE 53; RESP 12; TEMP 36.6; O2SAT 99
--- NOTE | 2025-07-27 08:18 | P.PNIM_ITS ---
Assessment and Plan Assessment and Plan (1) Intractable vomiting with nausea: Code(s): R11.2 - Nausea with vomiting, unspecified Status: Acute Assessment and Plan: The patient presents to [facility] as a direct admission on 07/26 with intractable dysgeusia, anorexia, weight loss, and worsening constipation x5-6 weeks. Initial concern recurrent hiatal hernia was etiology for patient's symptoms. However general surgery reviewed and it remains unchanged radiographically. CT scan from 07/23/2025 showed mild gallbladder distension. Concern now for biliary or other GI causes for her current symptoms. GI consulted. General surgery primary. Prior Studies: * EGD (07/02/25):?Unremarkable. * CT scan (07/23/25):?Reviewed with?Dr. Loza; compared to prior CT from March 2024?no change or possibly a smaller hiatal hernia. * Water-soluble upper GI:?very tight narrowing of GE junction. * Gallbladder ultrasound (07/26/25):?Normal gallbladder, no stones. * CT scan (07/23/25):?Mild gallbladder distention, otherwise normal. - GI consulted:?planning for gastric emptying study today - bowel regimen per surgery recs - s/p IV fluids - monitor labs, currently stable with no significant renal dysfunction or electrolyte abnormalities - continue pantoprazole and Carafate (2) History of repair of hiatal hernia: Code(s): Z98.890 - Other specified postprocedural states; Z87.19 - Personal history of other diseases of the digestive system Status: Acute Assessment and Plan: Patient has history of open paraesophageal hiatal hernia repair in 2009. She has since for had recurrence of a hiatal hernia, however currently appears unchanged when compared to previous studies. - general surgery primary (3) Abnormal findings on diagnostic imaging of gallbladder: Code(s): R93.2 - Abnormal findings on diagnostic imaging of liver and biliary tract Status: Acute Assessment and Plan: CT from 07/23 showed gallbladder distension. Right upper quadrant ultrasound performed today, 07/26, and it showed a mildly distended gallbladder with no stones/wall thickening/pericholecystic fluid and had a negative Srinivasan sign. - GI consulted (4) Constipation: Qualifiers: Constipation type: unspecified constipation type Qualified Code(s): K59.00 - Constipation, unspecified Code(s): K59.00 - Constipation, unspecified Status: Acute Assessment and Plan: . Awaiting initial test results prior to giving the bowel stimulation, however being closely monitored. Upper GI series performed today (07/26) which may be therapeutic for constipation. She was then placed on Metamucil a tbsp b.i.d. as well as mineral oil 1 tbsp b.i.d. via the service to start the process of eradicating the retained stool in her colon. - Metamucil tbsp b.i.d. - mineral oil 1 tbsp b.i.d. - further plan of care dependent on GI recommendations (5) Hiatal hernia: Code(s): K44.9 - Diaphragmatic hernia without obstruction or gangrene Status: Chronic Assessment and Plan: - imaging reviewed by general surgery and believes the hiatal hernia is relatively unchanged. -Upper GI a series completed, awaiting review by the surgical team. However they note if she were to have a volvulus or obstruction related to her recurrent hiatal hernia, she would likely require transfer to a tertiary care center for surgical intervention as this has been a recurrence. (6) Benign essential hypertension: Code(s): I10 - Essential (primary) hypertension Status: Chronic Assessment and Plan: - chronic, currently 115/53, stable. - continue home medications: HCTZ, losartan, diltiazem - monitor (7) Hyperlipidemia: Qualifiers: Hyperlipidemia type: unspecified Qualified Code(s): E78.5 - Hyperlipidemia, unspecified Code(s): E78.5 - Hyperlipidemia, unspecified Status: Chronic Assessment and Plan: - continue rosuvastatin 10 mg daily (8) COPD (chronic obstructive pulmonary disease): Qualifiers: COPD type: emphysema Emphysema type: unspecified Qualified Code(s): J43.9 - Emphysema, unspecified Code(s): J44.9 - Chronic obstructive pulmonary disease, unspecified Status: Acute Assessment and Plan: No current evidence of asthma/COPD exacerbation. - continue home medications: Singulair, albuterol p.r.n., airsupra daily Plan Diet: NPO GI Prophylaxis: Pantoprazole DVT Prophylaxis: SCDs, Lovenox IV fluids: D5/LR at 100 mL/hour Lines/Tubes: pIV Code Status: Full code Subjective Date/time seen: 07/27/25 08:18 Interval history: Patient seen and examined at bedside. Nausea improved today. Denied abdominal pain. Waiting on final part of gastric emptying study. Review of Systems Review of Systems: All systems reviewed & are unremarkable except as noted in HPI and below Exam Narrative: General: NAD Eyes: EOMI ENT: neck supple Cardiovascular: Regular rate and rhythm Respiratory: Clear to auscultation, respirations even and unlabored on RA Gastrointestinal: Soft, non tender Genitourinary: no suprapubic tenderness Musculoskeletal: No edema Skin: warm, dry Neuro: Alert. Psych: Mood appropriate Objective Data Vital Signs Vital Signs: Vital Signs - 24 hr 07/26/25 14:33 07/26/25 15:34 07/26/25 20:46 Temperature 98 F Pulse Rate 62 Respiratory Rate 14 Blood Pressure 134/63 Pulse Oximetry 98 Oxygen Delivery Room Air Room Air 07/26/25 20:46 07/26/25 23:46 07/27/25 04:00 Temperature 98.2 F 98.4 F 98.2 F Pulse Rate 61 56 L 59 L Respiratory Rate 16 16 16 Blood Pressure 134/58 L 149/51 H 115/53 L Pulse Oximetry 95 98 96 Oxygen Delivery Intake/Output Intake/Output: Intake & Output 07/24/25 07/25/25 07/26/25 07/27/25 23:59 23:59 23:59 23:59 Intake Total 0 950 Balance 0 950 Meds/Results Medications: Active Medications Generic Name Dose Route Start Last Admin Trade Name Freq PRN Reason Stop Dose Admin Albuterol 2.5 mg 07/26/25 19:49 Albuterol Sulfate Neb 2.5 Mg/3 Ml Inh INHALATION Q6H PRN copd Diltiazem HCl 480 mg 07/27/25 09:00 Diltiazem Hcl Cd 240 Mg Cap.24hr PO DAILY [facility] Enoxaparin Sodium 40 mg 07/27/25 09:00 Enoxaparin 40 Mg/0.4 Ml Syringe SUB-Q DAILY [facility] Hydrochlorothiazide 12.5 mg 07/27/25 09:00 Hydrochlorothiazide 12.5 Mg Capsule PO DAILY [facility] Dextrose/Lactated Ringer's 1,000 mls @ 100 mls/hr 07/26/25 13:25 07/27/25 03:00 Dextrose 5%/Lactated Ringers IV CONT 100 mls/hr .Q10H [facility] Administration Ibuprofen 800 mg in 200 mls @ 400 mls/hr 07/26/25 13:28 Caldolor 800 Mg/200 Ml IVPB Q6H PRN Breakthrough Pain Rated 1-3 or NPO Levothyroxine Sodium 50 mcg 07/27/25 06:30 07/27/25 06:49 Levothyroxine Sodium 50 Mcg Tablet PO Not Given DAILY@0630 [facility] Losartan Potassium 100 mg 07/27/25 09:00 Losartan Potassium 100 Mg Tablet PO DAILY [facility] Meloxicam 15 mg 07/27/25 09:00 Meloxicam 7.5 Mg Tablet PO QAM [facility] Mineral Oil 15 ml 07/27/25 09:00 Mineral Oil 30 Ml Udc PO BID [facility] Miscellaneous Information 0 each 07/26/25 00:01 Airsupra Is Non-Formulary. Use Pt Own Supply? XX 08/25/25 00:00 CLARIFY [facility] Montelukast Sodium 10 mg 07/27/25 09:00 Montelukast Sodium 10 Mg Tablet PO DAILY [facility] Morphine Sulfate 2 mg 07/26/25 13:23 Morphine Sulfate (*Crx) 4 Mg/Ml Inj IV PUSH Q4H PRN Pain Rated 7-10 Morphine Sulfate 1 mg 07/26/25 13:28 Morphine Sulfate (*Crx) 4 Mg/Ml Inj IV PUSH Q2H PRN Breakthrough Pain Rated 4-6 or NPO Non-Formulary Medication 2 inhalation 07/27/25 09:00 Albuterol-Budesonide [Airsupra] INHALATION 08/26/25 08:59 DAILY [facility] Ondansetron HCl 4 mg 07/26/25 13:23 07/26/25 23:44 Ondansetron Inj 4 Mg/2 Ml Vial IV PUSH 4 mg Q6H PRN Administration Nausea And Vomiting Pantoprazole Sodium 40 mg 07/27/25 09:00 Pantoprazole 40 Mg Tablet PO DAILY [facility] Psyllium Hydrophilic Mucilloid 1 packet 07/27/25 09:00 Psyllium Powder Packet PO BID [facility] Rosuvastatin Calcium 10 mg 07/27/25 09:00 Rosuvastatin 10 Mg Tablet PO DAILY [facility] Sucralfate 1 gm 07/27/25 07:30 Sucralfate 1 Gm Tablet PO 0730,1630 [facility] Radiology Results: ITS Impressions Abdomen Ultrasound 07/26/25 14:57 IMPRESSION: 1. No acute findings. Upper GI Series 07/26/25 15:18 IMPRESSION: Very limited single contrast exam with the only discrete finding being very tight narrowing of the GE junction. Correlate with surgical history. Stenosis/stricture associated with scar formation possibly present. Labs Labs: Laboratory Results - last 24 hr 07/26/25 07/26/25 07/27/25 13:56 16:55 05:17 WBC 4.9 4.4 L RBC 4.06 L 3.58 L Hgb 13.0 11.3 L Hct 38.0 33.8 L MCV 93.6 94.4 MCH 32.0 31.6 MCHC 34.2 33.4 RDW 12.5 12.6 Plt Count 234 213 MPV 8.8 9.1 Immature Gran % (Auto) 0.2 Neut % (Auto) 71.3 Lymph % (Auto) 17.0 L [place] % (Auto) 7.8 Eos % (Auto) 2.5 Baso % (Auto) 1.2 Lymph # (Auto) 0.83 L [place] # (Auto) 0.4 Eos # (Auto) 0.1 Baso # (Auto) 0.1 Abs Immat Gran (auto) 0.01 Absolute Neuts (auto) 3.5 Absolute Nucleated RBC 0.000 Nucleated RBC % 0.0 Sodium 132 L 133 L Potassium 3.5 3.3 L Chloride 98 102 Carbon Dioxide 24 30 Anion Gap 10 1 L BUN 5 L D 4 L Creatinine 0.85 0.73 Estim Creat Clear Calc Not Reportable 43 Estimated GFR > 60 > 60 Glucose 78 122 H Lactic Acid 0.8 Calcium 9.8 8.8 Total Bilirubin 0.9 AST 40 H ALT 20 Alkaline Phosphatase 67 Total Protein 7.1 Albumin 4.4 Urine Color Yellow Urine Appearance Cloudy H Urine pH 5.0 Ur Specific [place] 1.014 Urine Protein Trace Urine Glucose (UA) Negative Urine Ketones 3+ H Ur Blood (Man) Trace Urine Nitrate Negative Urine Bilirubin Negative Urine Urobilinogen 1.0 Leukocyte Esterase Rfl 1+ H Urine RBC 0-2 Urine WBC 21-50 H Ur Squamous Epith Cells Occasional Urine Bacteria None seen Urine Casts 0-2
[2025-07-27] MEDS: ENOXAPARIN 40 MG/0.4 ML SYRINGE SUB-Q (08:51)
[2025-07-27] MEDS: LOSARTAN POTASSIUM 100 MG TABLET PO (08:52)
[2025-07-27] MEDS: dilTIAZem HCL CD 240 MG CAP.24HR 480 MG PO (08:52)
[2025-07-27] MEDS: ONDANSETRON INJ 4 MG/2 ML VIAL IV PUSH ×3 (08:59→22:14)
--- NOTE | 2025-07-27 13:05 | P.PNGS_ITS ---
Progress Note: A&P Assessment and Plan (1) Dysgeusia: Code(s): R43.2 - Parageusia Status: Acute Assessment and Plan: Will try popsicles and small amounts clear liquids. This is the main reason the patient cannot eat. (2) Constipation: Qualifiers: Constipation type: unspecified constipation type Qualified Code(s): K59.00 - Constipation, unspecified Code(s): K59.00 - Constipation, unspecified Status: Acute Assessment and Plan: Had a bowel movement. Continue Metamucil and mineral oil. Discuss Linzess with Dr. Cazares. Probably give Mag citrate tomorrow. (3) History of repair of hiatal hernia: Code(s): Z98.890 - Other specified postprocedural states; Z87.19 - Personal history of other diseases of the digestive system Status: Acute Assessment and Plan: Has recurrent hernia, does not appear to have gastric obstruction. (4) Nausea and vomiting: Qualifiers: Vomiting type: unspecified Qualified Code(s): R11.2 - Nausea with vomiting, unspecified Code(s): R11.2 - Nausea with vomiting, unspecified Status: Chronic Assessment and Plan: Emesis is only mucus and sometimes ingested food suggesting this is either from the distal esophagus or the closed off incarcerated stomach of the recurrent hiatal hernia. Subjective Subjective Date/Time Seen: 07/27/25 13:05 Patient reports: feels better (still NPO), bowel movement and afebrile Review of Systems Review of Systems: All systems reviewed & are unremarkable except as noted in HPI and below (HPI) Exam Const: General: comfortable and no acute distress Orientation/consciousness: patient oriented x3 Neuro: General: patient oriented x3 and no focal motor deficits Extrem: General: no calf tenderness and no edema Psych: Affect: normal affect Insight: Good insight present (Psych) Judgement: Good judgement present (Psych) Objective Data Vital Signs Vital Signs: Vital Signs - 24 hr 07/26/25 14:33 07/26/25 15:34 07/26/25 20:46 Temperature 36.6 C Pulse Rate 62 Respiratory Rate 14 Blood Pressure 134/63 Pulse Oximetry 98 Oxygen Delivery Room Air Room Air 07/26/25 20:46 07/26/25 23:46 07/27/25 04:00 Temperature 36.8 C 36.9 C 36.8 C Pulse Rate 61 56 L 59 L Respiratory Rate 16 16 16 Blood Pressure 134/58 L 149/51 H 115/53 L Pulse Oximetry 95 98 96 Oxygen Delivery 07/27/25 08:00 07/27/25 08:50 Temperature 36.6 C Pulse Rate 53 L Respiratory Rate 12 Blood Pressure 139/54 L Pulse Oximetry 99 Oxygen Delivery Room Air Intake/Output Intake/Output: Intake & Output 07/24/25 07/25/25 07/26/25 07/27/25 23:59 23:59 23:59 23:59 Intake Total 0 950 Balance 0 950 Meds/Results Medications: Active Medications Generic Name Dose Route Start Last Admin Trade Name Freq PRN Reason Stop Dose Admin Albuterol 2.5 mg 07/26/25 19:49 Albuterol Sulfate Neb 2.5 Mg/3 Ml Inh INHALATION Q6H PRN copd Diltiazem HCl 480 mg 07/27/25 09:00 07/27/25 08:52 Diltiazem Hcl Cd 240 Mg Cap.24hr PO 480 mg DAILY [facility] Administration Enoxaparin Sodium 40 mg 07/27/25 09:00 07/27/25 08:51 Enoxaparin 40 Mg/0.4 Ml Syringe SUB-Q 40 mg DAILY [facility] Administration Hydrochlorothiazide 12.5 mg 07/27/25 09:00 07/27/25 08:52 Hydrochlorothiazide 12.5 Mg Capsule PO 12.5 mg DAILY [facility] Administration Dextrose/Lactated Ringer's 1,000 mls @ 100 mls/hr 07/26/25 13:25 07/27/25 03:00 Dextrose 5%/Lactated Ringers IV CONT 100 mls/hr .Q10H [facility] Administration Ibuprofen 800 mg in 200 mls @ 400 mls/hr 07/26/25 13:28 Caldolor 800 Mg/200 Ml IVPB Q6H PRN Breakthrough Pain Rated 1-3 or NPO Levothyroxine Sodium 50 mcg 07/27/25 06:30 07/27/25 06:49 Levothyroxine Sodium 50 Mcg Tablet PO Not Given DAILY@0630 [facility] Losartan Potassium 100 mg 07/27/25 09:00 07/27/25 08:52 Losartan Potassium 100 Mg Tablet PO 100 mg DAILY [facility] Administration Meloxicam 15 mg 07/27/25 09:00 Meloxicam 7.5 Mg Tablet PO QAM [facility] Mineral Oil 15 ml 07/27/25 09:00 Mineral Oil 30 Ml Udc PO BID [facility] Miscellaneous Information 0 each 07/26/25 00:01 Airsupra Is Non-Formulary. Use Pt Own Supply? XX 08/25/25 00:00 [facility] Montelukast Sodium 10 mg 07/27/25 09:00 Montelukast Sodium 10 Mg Tablet PO DAILY [facility] Morphine Sulfate 2 mg 07/26/25 13:23 Morphine Sulfate (*Crx) 4 Mg/Ml Inj IV PUSH Q4H PRN Pain Rated 7-10 Morphine Sulfate 1 mg 07/26/25 13:28 Morphine Sulfate (*Crx) 4 Mg/Ml Inj IV PUSH Q2H PRN Breakthrough Pain Rated 4-6 or NPO Non-Formulary Medication 2 inhalation 07/27/25 09:00 Albuterol-Budesonide [Airsupra] INHALATION 08/26/25 08:59 DAILY [facility] Ondansetron HCl 4 mg 07/26/25 13:23 07/27/25 08:59 Ondansetron Inj 4 Mg/2 Ml Vial IV PUSH 4 mg Q6H PRN Administration Nausea And Vomiting Pantoprazole Sodium 40 mg 07/27/25 09:00 Pantoprazole 40 Mg Tablet PO DAILY [facility] Psyllium Hydrophilic Mucilloid 1 packet 07/27/25 09:00 Psyllium Powder Packet PO BID [facility] Rosuvastatin Calcium 10 mg 07/27/25 09:00 Rosuvastatin 10 Mg Tablet PO DAILY [facility] Sucralfate 1 gm 07/27/25 07:30 07/27/25 08:52 Sucralfate 1 Gm Tablet PO Not Given 0730,1630 [facility] Radiology Results: ITS Impressions Abdomen Ultrasound 07/26/25 14:57 IMPRESSION: 1. No acute findings. Upper GI Series 07/26/25 15:18 IMPRESSION: Very limited single contrast exam with the only discrete finding being very tight narrowing of the GE junction. Correlate with surgical history. Stenosis/stricture associated with scar formation possibly present. Labs Labs: Laboratory Results - last 24 hr 07/26/25 07/26/25 07/27/25 13:56 16:55 05:17 WBC 4.9 4.4 L RBC 4.06 L 3.58 L Hgb 13.0 11.3 L Hct 38.0 33.8 L MCV 93.6 94.4 MCH 32.0 31.6 MCHC 34.2 33.4 RDW 12.5 12.6 Plt Count 234 213 MPV 8.8 9.1 Immature Gran % (Auto) 0.2 Neut % (Auto) 71.3 Lymph % (Auto) 17.0 L [place] % (Auto) 7.8 Eos % (Auto) 2.5 Baso % (Auto) 1.2 Lymph # (Auto) 0.83 L [place] # (Auto) 0.4 Eos # (Auto) 0.1 Baso # (Auto) 0.1 Abs Immat Gran (auto) 0.01 Absolute Neuts (auto) 3.5 Absolute Nucleated RBC 0.000 Nucleated RBC % 0.0 Sodium 132 L 133 L Potassium 3.5 3.3 L Chloride 98 102 Carbon Dioxide 24 30 Anion Gap 10 1 L BUN 5 L D 4 L Creatinine 0.85 0.73 Estim Creat Clear Calc Not Reportable 43 Estimated GFR > 60 > 60 Glucose 78 122 H Lactic Acid 0.8 Calcium 9.8 8.8 Total Bilirubin 0.9 AST 40 H ALT 20 Alkaline Phosphatase 67 Total Protein 7.1 Albumin 4.4 Urine Color Yellow Urine Appearance Cloudy H Urine pH 5.0 Ur Specific [place] 1.014 Urine Protein Trace Urine Glucose (UA) Negative Urine Ketones 3+ H Ur Blood (Man) Trace Urine Nitrate Negative Urine Bilirubin Negative Urine Urobilinogen 1.0 Leukocyte Esterase Rfl 1+ H Urine RBC 0-2 Urine WBC 21-50 H Ur Squamous Epith Cells Occasional Urine Bacteria None seen Urine Casts 0-2 Imaging My impression: GASTRIC EMPTYING STUDY STILL IN PROGRESS
[2025-07-27] MEDS: ROSUVASTATIN 10 MG TABLET PO (14:47)
[2025-07-27] MEDS: PANTOPRAZOLE 40 MG TABLET PO (14:47)
[2025-07-27] MEDS: MINERAL OIL 30 ML UDC 15 ML PO ×2 (14:47→18:06)
[2025-07-27] MEDS: MONTELUKAST SODIUM 10 MG TABLET PO (14:47)
[2025-07-27] MEDS: MELOXICAM 7.5 MG TABLET 15 MG PO (14:47)
[2025-07-27 16:00] VITALS: BP 112/48; PULSE 52; RESP 14; O2SAT 99
--- NOTE | 2025-07-27 17:32 | P.PNGI_ITS ---
Progress Note: A&P Assessment and Plan (1) Gastroparesis: Code(s): K31.84 - Gastroparesis Status: Acute Assessment and Plan: - The patient presents with prolonged gastrointestinal sequelae following a six- week course of Zepbound (Tirzepatide), a dual GIP/GLP-1 receptor agonist. Despite discontinuation four weeks ago, significant delayed gastrointestinal motility persists, an effect noted to be more pronounced than typically observed with semaglutide (a GLP-1 agonist only). - This is objectively demonstrated by delayed esophageal emptying on the upper GI series and confirmed by today's delayed gastric emptying study. Constipation is an additional, well-documented consequence. These effects are anticipated to gradually resolve over the next several weeks. - Management involves initiating metoclopramide 10 mg TID before meals for an estimated yoc-gq-lefqc-week course. Further diagnostic studies are not indicated. The patient will be followed clinically. Discharge is planned after the patient demonstrates tolerance of a normal diet with the prescribed metoclopramide. Motegrity (Prucalopride) can be prescribed once the patient is discharged (not available in our pharmacy) which has additional prokinetic effects in the colonic motility, more than metoclopramide. Subjective Date/time seen: 07/27/25 17:32 Interval history: The patient tolerated nuclear medicine fatty meal well, therefore the gastric emptying study was useful. It demonstrated delayed gastric emptying during the first and second hour, however after 4 hours the gastric emptying normalized. The patient feels less nauseated today. Exam Const: General: comfortable and no acute distress Resp: Effort & Inspection: normal respiratory effort Auscultation: clear to auscultation bilaterally Cardio: Rate: regular rate Rhythm: regular rhythm GI: Inspection: non-distended GI Palp: Yes Soft to palpation, No Firmness to palpation present (GI) and No Tenderness to palpation present (GI) Objective Data Vital Signs Vital Signs: Vital Signs - 24 hr 07/26/25 20:46 07/26/25 20:46 07/26/25 23:46 Temperature 98.2 F 98.4 F Pulse Rate 61 56 L Respiratory Rate 16 16 Blood Pressure 134/58 L 149/51 H Pulse Oximetry 95 98 Oxygen Delivery Room Air 07/27/25 04:00 07/27/25 08:00 07/27/25 08:50 Temperature 98.2 F 97.8 F Pulse Rate 59 L 53 L Respiratory Rate 16 12 Blood Pressure 115/53 L 139/54 L Pulse Oximetry 96 99 Oxygen Delivery Room Air 07/27/25 16:00 Temperature Pulse Rate 52 L Respiratory Rate 14 Blood Pressure 112/48 L Pulse Oximetry 99 Oxygen Delivery Intake/Output Intake/Output: Intake & Output 07/24/25 07/25/25 07/26/25 07/27/25 23:59 23:59 23:59 23:59 Intake Total 0 950 Balance 0 950 Meds/Results Medications: Active Medications Generic Name Dose Route Start Last Admin Trade Name Freq PRN Reason Stop Dose Admin Albuterol 2.5 mg 07/26/25 19:49 Albuterol Sulfate Neb 2.5 Mg/3 Ml Inh INHALATION Q6H PRN copd Diltiazem HCl 480 mg 07/27/25 09:00 07/27/25 08:52 Diltiazem Hcl Cd 240 Mg Cap.24hr PO 480 mg DAILY OLIVIA Administration Enoxaparin Sodium 40 mg 07/27/25 09:00 07/27/25 08:51 Enoxaparin 40 Mg/0.4 Ml Syringe SUB-Q 40 mg DAILY OLIVIA Administration Hydrochlorothiazide 12.5 mg 07/27/25 09:00 07/27/25 08:52 Hydrochlorothiazide 12.5 Mg Capsule PO 12.5 mg DAILY OLIVIA Administration Dextrose/Lactated Ringer's 1,000 mls @ 100 mls/hr 07/26/25 13:25 07/27/25 03:00 Dextrose 5%/Lactated Ringers IV CONT 100 mls/hr .Q10H OLIVIA Administration Levothyroxine Sodium 50 mcg 07/27/25 06:30 07/27/25 06:49 Levothyroxine Sodium 50 Mcg Tablet PO Not Given DAILY@0630 OLIVIA Losartan Potassium 100 mg 07/27/25 09:00 07/27/25 08:52 Losartan Potassium 100 Mg Tablet PO 100 mg DAILY OLIVIA Administration Meloxicam 15 mg 07/27/25 09:00 07/27/25 14:47 Meloxicam 7.5 Mg Tablet PO 15 mg QAM OLIVIA Administration Metoclopramide HCl 10 mg 07/28/25 06:30 Metoclopramide Hcl 10 Mg Tablet PO AC OLIVIA Mineral Oil 15 ml 07/27/25 09:00 07/27/25 14:47 Mineral Oil 30 Ml Udc PO 15 ml BID OLIVIA Administration Miscellaneous Information 0 each 07/26/25 00:01 Airsupra Is Non-Formulary. Use Pt Own Supply? XX 08/25/25 00:00 CLARIFY OLIVIA Montelukast Sodium 10 mg 07/27/25 09:00 07/27/25 14:47 Montelukast Sodium 10 Mg Tablet PO 10 mg DAILY OLIVIA Administration Non-Formulary Medication 2 inhalation 07/27/25 09:00 Albuterol-Budesonide [Airsupra] INHALATION 08/26/25 08:59 DAILY OLIVIA Ondansetron HCl 4 mg 07/26/25 13:23 07/27/25 14:51 Ondansetron Inj 4 Mg/2 Ml Vial IV PUSH 4 mg Q6H PRN Administration Nausea And Vomiting Pantoprazole Sodium 40 mg 07/27/25 09:00 07/27/25 14:47 Pantoprazole 40 Mg Tablet PO 40 mg DAILY OLIVIA Administration Psyllium Hydrophilic Mucilloid 1 packet 07/27/25 09:00 07/27/25 14:47 Psyllium Powder Packet PO Not Given BID OLIVIA Rosuvastatin Calcium 10 mg 07/27/25 09:00 07/27/25 14:47 Rosuvastatin 10 Mg Tablet PO 10 mg DAILY OLIVIA Administration Radiology Results: ITS Impressions Abdomen Ultrasound 07/26/25 14:57 IMPRESSION: 1. No acute findings. Upper GI Series 07/26/25 15:18 IMPRESSION: Very limited single contrast exam with the only discrete finding being very tight narrowing of the GE junction. Correlate with surgical history. Stenosis/stricture associated with scar formation possibly present. Gastric Emptying Nuclear Medicine 07/27/25 14:07 IMPRESSION: 1. Delayed gastric emptying with greater than expected activity on the 2 hour images. Labs Labs: Laboratory Results - last 24 hr 07/26/25 07/27/25 16:55 05:17 WBC 4.4 L RBC 3.58 L Hgb 11.3 L Hct 33.8 L MCV 94.4 MCH 31.6 MCHC 33.4 RDW 12.6 Plt Count 213 MPV 9.1 Sodium 133 L Potassium 3.3 L Chloride 102 Carbon Dioxide 30 Anion Gap 1 L BUN 4 L Creatinine 0.73 Estim Creat Clear Calc 43 Estimated GFR > 60 Glucose 122 H Calcium 8.8 Urine Color Yellow Urine Appearance Cloudy H Urine pH 5.0 Ur Specific [place] 1.014 Urine Protein Trace Urine Glucose (UA) Negative Urine Ketones 3+ H Ur Blood (Man) Trace Urine Nitrate Negative Urine Bilirubin Negative Urine Urobilinogen 1.0 Leukocyte Esterase Rfl 1+ H Urine RBC 0-2 Urine WBC 21-50 H Ur Squamous Epith Cells Occasional Urine Bacteria None seen Urine Casts 0-2
[2025-07-27] MEDS: PSYLLIUM POWDER PACKET 1 PACKET PO (18:06)
[2025-07-27 20:00] VITALS: BP 123/71; PULSE 67; RESP 16; TEMP 36.6; O2SAT 96
[2025-07-28] VITALS: BP 112/52; PULSE 52; RESP 16; TEMP 36.5; O2SAT 94
[2025-07-28 04:10] VITALS: BP 99/49; PULSE 54; RESP 16; TEMP 36.5; O2SAT 93
[2025-07-28] MEDS: DEXTROSE 5%/LACTATED RINGERS 1,000 ML 100 ML IV CONT ×2 (04:11→04:12)
[2025-07-28 05:43] LABS: Hematocrit 33.5 % (37.0-47.0); Hemoglobin 11.3 g/dL (12.0-15.0); Mean Corpuscular HGB Conc 33.7 g/dl (32-36); Mean Corpuscular Hemoglobin 31.9 pg (26-34); Mean Corpuscular Volume 94.6 fl (80-100); Platelet Count Result 195 k/mm3 (150-375); Red Blood Count 3.54 M/mm3 (4.2-5.4); White Blood Count 5.4 K/mm3 (4.5-10.0)
[2025-07-28] MEDS: LEVOTHYROXINE SODIUM 50 MCG TABLET PO (06:04)
[2025-07-28] MEDS: METOCLOPRAMIDE HCL 10 MG TABLET PO ×3 (06:04→17:07)
[2025-07-28 06:09] LABS: Anion Gap 2 mmol/L (4-12); Calcium 8.8 mg/dL (8.4-10.2); Carbon Dioxide 30 mmol/L (22-30); Chloride 102 mmol/L (98-107); Estimated CRCL calculation 40 ml/min; Estimated Glomerular Filt Rate > 60; Glucose 118 mg/dL (65-110); Potassium 3.1 mmol/L (3.4-5.0); Sodium 134 mmol/L (137-145)
[2025-07-28 06:10] LABS: Blood Urea Nitrogen < 2 mg/dL (7-17)
[2025-07-28 07:47] VITALS: BP 108/79; PULSE 55; RESP 16; TEMP 36.9; O2SAT 95
[2025-07-28] MEDS: MINERAL OIL 30 ML UDC 15 ML PO ×2 (08:30→17:07)
[2025-07-28] MEDS: POTASSIUM CHLORIDE 20 MEQ ER TABLET 40 MEQ PO (08:31)
[2025-07-28] MEDS: PSYLLIUM POWDER PACKET 1 PACKET PO ×2 (08:31→17:07)
[2025-07-28] MEDS: MELOXICAM 7.5 MG TABLET 15 MG PO (08:31)
[2025-07-28] MEDS: ENOXAPARIN 40 MG/0.4 ML SYRINGE SUB-Q (08:31)
[2025-07-28] MEDS: LOSARTAN POTASSIUM 100 MG TABLET PO (08:31)
[2025-07-28] MEDS: PANTOPRAZOLE 40 MG TABLET PO (08:32)
[2025-07-28] MEDS: ROSUVASTATIN 10 MG TABLET PO (08:32)
[2025-07-28] MEDS: MONTELUKAST SODIUM 10 MG TABLET PO (08:32)
[2025-07-28] MEDS: dilTIAZem HCL CD 240 MG CAP.24HR 480 MG PO (08:32)
[2025-07-28] MEDS: KCL 40 MEQ/0.9% SOD CHL 1,000 ML 80 ML IV CONT ×2 (08:39→19:49)
--- NOTE | 2025-07-28 08:41 | P.PNIM_ITS ---
Assessment and Plan Assessment and Plan (1) Intractable vomiting with nausea: Code(s): R11.2 - Nausea with vomiting, unspecified Status: Acute Assessment and Plan: The patient presents to [facility] as a direct admission on 07/26 with intractable dysgeusia, anorexia, weight loss, and worsening constipation x5-6 weeks. Initial concern recurrent hiatal hernia was etiology for patient's symptoms. However general surgery reviewed and it remains unchanged radiographically. CT scan from 07/23/2025 showed mild gallbladder distension. Concern now for biliary or other GI causes for her current symptoms. GI consulted. General surgery primary. Prior Studies: * EGD (07/02/25):?Unremarkable. * CT scan (07/23/25):?Reviewed with?Dr. Loza; compared to prior CT from March 2024?no change or possibly a smaller hiatal hernia. * Water-soluble upper GI:?very tight narrowing of GE junction. * Gallbladder ultrasound (07/26/25):?Normal gallbladder, no stones. * CT scan (07/23/25):?Mild gallbladder distention, otherwise normal. * bowel regimen per surgery recs * s/p IV fluids * monitor labs, currently stable with no significant renal dysfunction or electrolyte abnormalities * continue pantoprazole and Carafate * Gastric emptying study: demonstrated delayed gastric emptying during the first and second hour, however after 4 hours the gastric emptying normalized * GI consulted: recommend initiating metoclopramide 10 mg TID before meals for an estimated nod-eq-ngjbw-week course * Attempt normal diet today (2) History of repair of hiatal hernia: Code(s): Z98.890 - Other specified postprocedural states; Z87.19 - Personal history of other diseases of the digestive system Status: Acute Assessment and Plan: Patient has history of open paraesophageal hiatal hernia repair in 2009. She has since for had recurrence of a hiatal hernia, however currently appears unchanged when compared to previous studies. * general surgery primary (3) Abnormal findings on diagnostic imaging of gallbladder: Code(s): R93.2 - Abnormal findings on diagnostic imaging of liver and biliary tract Status: Acute Assessment and Plan: CT from 07/23 showed gallbladder distension. Right upper quadrant ultrasound performed today, 07/26, and it showed a mildly distended gallbladder with no stones/wall thickening/pericholecystic fluid and had a negative Srinivasan sign. * GI consulted (4) Constipation: Qualifiers: Constipation type: unspecified constipation type Qualified Code(s): K59.00 - Constipation, unspecified Code(s): K59.00 - Constipation, unspecified Status: Acute Assessment and Plan: Awaiting initial test results prior to giving the bowel stimulation, however being closely monitored. Upper GI series performed today (07/26) which may be therapeutic for constipation. She was then placed on Metamucil a tbsp b.i.d. as well as mineral oil 1 tbsp b.i.d. via the service to start the process of eradicating the retained stool in her colon. * Metamucil tbsp b.i.d. * mineral oil 1 tbsp b.i.d. * further plan of care dependent on GI recommendations (5) Hiatal hernia: Code(s): K44.9 - Diaphragmatic hernia without obstruction or gangrene Status: Chronic Assessment and Plan: * imaging reviewed by general surgery and believes the hiatal hernia is relatively unchanged. * Upper GI a series completed, awaiting review by the surgical team. However they note if she were to have a volvulus or obstruction related to her recurrent hiatal hernia, she would likely require transfer to a tertiary care center for surgical intervention as this has been a recurrence. (6) Benign essential hypertension: Code(s): I10 - Essential (primary) hypertension Status: Chronic Assessment and Plan: * chronic, currently 115/53, stable. * continue home medications: HCTZ, losartan, diltiazem * monitor (7) Hyperlipidemia: Qualifiers: Hyperlipidemia type: unspecified Qualified Code(s): E78.5 - Hyperlipidemia, unspecified Code(s): E78.5 - Hyperlipidemia, unspecified Status: Chronic Assessment and Plan: * continue rosuvastatin 10 mg daily (8) COPD (chronic obstructive pulmonary disease): Qualifiers: COPD type: emphysema Emphysema type: unspecified Qualified Code(s): J43.9 - Emphysema, unspecified Code(s): J44.9 - Chronic obstructive pulmonary disease, unspecified Status: Acute Assessment and Plan: * No current evidence of asthma/COPD exacerbation * continue home medications: Singulair, albuterol p.r.n., airsupra daily Plan Diet: NPO GI Prophylaxis: Pantoprazole DVT Prophylaxis: SCDs, Lovenox IV fluids: D5/LR at 100 mL/hour Lines/Tubes: pIV Code Status: Full code Subjective Date/time seen: 07/28/25 08:41 Interval history: Patient seen and examined at bedside. Nausea continues to improved. Denies abdominal pain. GI consulted - recommend initiating Metoclopramide 10mg TID for 2-3 weeks. Can plan for discharge once patient can demonstrate if ability to intake normal diet. Review of Systems Review of Systems: All systems reviewed & are unremarkable except as noted in HPI and below Exam Narrative: General: NAD Eyes: EOMI ENT: neck supple Cardiovascular: Regular rate and rhythm Respiratory: Clear to auscultation, respirations even and unlabored on RA Gastrointestinal: Soft, non tender Genitourinary: no suprapubic tenderness Musculoskeletal: No edema Skin: warm, dry Neuro: Alert. Psych: Mood appropriate Const: General: comfortable and no acute distress Other: , female, nontoxic appearance HENMT: Face/Nose/Sinus: Normal nares present Mouth: Yes moist mucous membranes Eyes: General: appearance normal, both eyes and all related structures Sclera: sclerae normal Pupils: Equal, round and reactive pupils present EOM: EOMs intact bilaterally Resp: Effort & Inspection: normal respiratory effort Auscultation: clear to auscultation bilaterally Cardio: Rate: regular rate Rhythm: regular rhythm Other: S1-S2 present without murmur, rub, ectopy GI: Other: Abdomen soft and nondistended. Hyperactive bowel sounds in all quadrants. No tenderness on exam. Skin: General skin exam: normal color and no rashes or lesions noted Wounds: no wounds Neuro: Cranial nerves: Yes Equal, round and reactive pupils present Speech: normal speech Motor exam (neuro): 5/5 motor strength present throughout Sensory Exam: normal sensation Other: A&O x4 Extrem: General: normal to inspection Psych: Mental Status: mental status grossly normal Affect: normal affect Other: Good insight and judgment, very pleasant Objective Data Vital Signs Vital Signs: Vital Signs - 24 hr 07/27/25 08:50 07/27/25 16:00 07/27/25 20:00 Temperature 97.9 F Pulse Rate 52 L 67 Respiratory Rate 14 16 Blood Pressure 112/48 L 123/71 Pulse Oximetry 99 96 Oxygen Delivery Room Air 07/28/25 00:00 07/28/25 04:10 07/28/25 07:47 Temperature 97.7 F 97.7 F 98.4 F Pulse Rate 52 L 54 L 55 L Respiratory Rate 16 16 16 Blood Pressure 112/52 L 99/49 L 108/79 Pulse Oximetry 94 93 95 Oxygen Delivery Intake/Output Intake/Output: Intake & Output 07/25/25 07/26/25 07/27/25 07/28/25 23:59 23:59 23:59 23:59 Intake Total 0 2400 1251.7 Balance 0 2400 1251.7 Meds/Results Medications: Active Medications Generic Name Dose Route Start Last Admin Trade Name Freq PRN Reason Stop Dose Admin Albuterol 2.5 mg 07/26/25 19:49 Albuterol Sulfate Neb 2.5 Mg/3 Ml Inh INHALATION Q6H PRN copd Diltiazem HCl 480 mg 07/27/25 09:00 07/28/25 08:32 Diltiazem Hcl Cd 240 Mg Cap.24hr PO 480 mg DAILY OLIVIA Administration Enoxaparin Sodium 40 mg 07/27/25 09:00 07/28/25 08:31 Enoxaparin 40 Mg/0.4 Ml Syringe SUB-Q 40 mg DAILY OLIVIA Administration Hydrochlorothiazide 12.5 mg 07/27/25 09:00 07/28/25 08:31 Hydrochlorothiazide 12.5 Mg Capsule PO 12.5 mg DAILY OLIVIA Administration Dextrose/Lactated Ringer's 1,000 mls @ 100 mls/hr 07/26/25 13:25 07/28/25 04: 12 Dextrose 5%/Lactated Ringers IV CONT 100 mls/hr .Q10H OLIVIA Administration Potassium Chloride/Sodium Chloride 1,000 mls @ 80 mls/hr 07/28/25 07:30 Kcl 40 Meq/Ns IV CONT .[id number] OLIVIA Levothyroxine Sodium 50 mcg 07/27/25 06:30 07/28/25 06:04 Levothyroxine Sodium 50 Mcg Tablet PO 50 mcg DAILY@0630 OLIVIA Administration Losartan Potassium 100 mg 07/27/25 09:00 07/28/25 08:31 Losartan Potassium 100 Mg Tablet PO 100 mg DAILY OLIVIA Administration Magnesium Citrate 300 ml 07/28/25 11:00 Magnesium Citrate 300 Ml Btl PO 07/28/25 11:01 ONCE ONE Meloxicam 15 mg 07/27/25 09:00 07/28/25 08:31 Meloxicam 7.5 Mg Tablet PO 15 mg QAM OLIVIA Administration Metoclopramide HCl 10 mg 07/28/25 06:30 07/28/25 06:04 Metoclopramide Hcl 10 Mg Tablet PO 10 mg AC OLIVIA Administration Mineral Oil 15 ml 07/27/25 09:00 07/28/25 08:30 Mineral Oil 30 Ml Udc PO 15 ml BID OLIVIA Administration Miscellaneous Information 0 each 07/26/25 00:01 Airsupra Is Non-Formulary. Use Pt Own Supply? XX 08/25/25 00:00 CLARIFY OLIVIA Miscellaneous Information 1 each 07/27/25 00:01 Breztri Inhaler Sent To Pharmacy For Verification, Please Enter Order XX 08/26/25 00:00 CLARIFY OLIVIA Montelukast Sodium 10 mg 07/27/25 09:00 07/28/25 08:32 Montelukast Sodium 10 Mg Tablet PO 10 mg DAILY OLIVIA Administration Non-Formulary Medication 2 inhalation 07/27/25 09:00 Albuterol-Budesonide [Airsupra] INHALATION 08/26/25 08:59 DAILY OLIVIA Ondansetron HCl 4 mg 07/26/25 13:23 07/27/25 22:14 Ondansetron Inj 4 Mg/2 Ml Vial IV PUSH 4 mg Q6H PRN Administration Nausea And Vomiting Pantoprazole Sodium 40 mg 07/27/25 09:00 07/28/25 08:32 Pantoprazole 40 Mg Tablet PO 40 mg DAILY OLIVIA Administration Potassium Chloride 20 meq 07/28/25 20:00 Potassium Chloride 20 Meq Er Tablet PO BIDWM OLIVIA Psyllium Hydrophilic Mucilloid 1 packet 07/27/25 09:00 07/28/25 08:31 Psyllium Powder Packet PO 1 packet BID OLIVIA Administration Rosuvastatin Calcium 10 mg 07/27/25 09:00 07/28/25 08:32 Rosuvastatin 10 Mg Tablet PO 10 mg DAILY OLIVIA Administration Radiology Results: ITS Impressions Abdomen Ultrasound 07/26/25 14:57 IMPRESSION: 1. No acute findings. Upper GI Series 07/26/25 15:18 IMPRESSION: Very limited single contrast exam with the only discrete finding being very tight narrowing of the GE junction. Correlate with surgical history. Stenosis/stricture associated with scar formation possibly present. Gastric Emptying Nuclear Medicine 07/27/25 14:07 IMPRESSION: 1. Delayed gastric emptying with greater than expected activity on the 2 hour images. Abdomen X-Ray 07/28/25 08:15 IMPRESSION: Contrast throughout the large intestine. No evidence of obstruction or large amount of free air. Labs Labs: Laboratory Results - last 24 hr 07/28/25 05:35 WBC 5.4 RBC 3.54 L Hgb 11.3 L Hct 33.5 L MCV 94.6 MCH 31.9 MCHC 33.7 RDW 12.6 Plt Count 195 MPV 8.8 Sodium 134 L Potassium 3.1 L Chloride 102 Carbon Dioxide 30 Anion Gap 2 L BUN < 2 L Creatinine 0.79 Estim Creat Clear Calc 40 Estimated GFR > 60 Glucose 118 H Calcium 8.8 Quality VTE Prophylaxis VTE prophylaxis: mechanical ordered
[2025-07-28] MEDS: MAGNESIUM CITRATE 300 ML BTL PO (11:44)
[2025-07-28 12:00] VITALS: BP 141/57; PULSE 57; RESP 20; TEMP 36.6; O2SAT 97
[2025-07-28] MEDS: ONDANSETRON INJ 4 MG/2 ML VIAL IV PUSH (13:21)
--- NOTE | 2025-07-28 15:02 | P.PNGS_ITS ---
Progress Note: A&P Assessment and Plan (1) Dysgeusia: Code(s): R43.2 - Parageusia Status: Acute Assessment and Plan: * Better today. Advance as tolerated to full liquids. She was able to tolerated clear liquids for breakfast, but refused lunch d/t nausea and bloating after the mag citrate. (2) Constipation: Qualifiers: Constipation type: unspecified constipation type Qualified Code(s): K59.00 - Constipation, unspecified Code(s): K59.00 - Constipation, unspecified Status: Acute Assessment and Plan: * Has had a few small bowel movements. Continue Metamucil and mineral oil. Still had a lot of contrast throughout the colon on plain films this morning. Mag citrate given today. (3) History of repair of hiatal hernia: Code(s): Z98.890 - Other specified postprocedural states; Z87.19 - Personal history of other diseases of the digestive system Status: Acute Assessment and Plan: * Has recurrent hernia, does not appear to have gastric obstruction. (4) Nausea and vomiting: Qualifiers: Vomiting type: unspecified Qualified Code(s): R11.2 - Nausea with vomiting, unspecified Code(s): R11.2 - Nausea with vomiting, unspecified Status: Chronic Assessment and Plan: * Emesis is only mucus and sometimes ingested food suggesting this is either from the distal esophagus or the closed off incarcerated stomach of the recurrent hiatal hernia. Plan I have discussed the patient's case, recommendations, and treatment plan with Dr. Garcia. Subjective Subjective Date/Time Seen: 07/28/25 13:02 Interval history: Patient is having some nausea since drinking the mag citrate around noon. She has not vomited. She is having less issues with the dysgeusia and feels that is better today. She is feeling very bloated, but no abdominal pain. She reports having 2 BMs yesterday and is passing flatus. She has had some clear liquids this morning for breakfast. She had some Jell-O and broth. She refused lunch due to the bloating and nausea after the mag citrate. Review of Systems Review of Systems: All systems reviewed & are unremarkable except as noted in HPI and below Exam Const: General: comfortable and no acute distress GI: Inspection: other (mildly distended in the upper abdomen) GI Palp: Yes Soft to palpation, No Tenderness to palpation present (GI), No Guarding due to palpation present (GI) and No Rebound tenderness present Auscultation: normal bowel sounds Objective Data Vital Signs Vital Signs: Vital Signs - 24 hr 07/27/25 16:00 07/27/25 20:00 07/28/25 00:00 Temperature 97.9 F 97.7 F Pulse Rate 52 L 67 52 L Respiratory Rate 14 16 16 Blood Pressure 112/48 L 123/71 112/52 L Pulse Oximetry 99 96 94 Oxygen Delivery 07/28/25 04:10 07/28/25 07:47 07/28/25 08:30 Temperature 97.7 F 98.4 F Pulse Rate 54 L 55 L Respiratory Rate 16 16 Blood Pressure 99/49 L 108/79 Pulse Oximetry 93 95 Oxygen Delivery Room Air 07/28/25 12:00 Temperature 97.9 F Pulse Rate 57 L Respiratory Rate 20 Blood Pressure 141/57 H Pulse Oximetry 97 Oxygen Delivery Intake/Output Intake/Output: Intake & Output 07/25/25 07/26/25 07/27/25 07/28/25 23:59 23:59 23:59 23:59 Intake Total 0 2400 1541.7 Balance 0 2400 1541.7 Meds/Results Medications: Active Medications Generic Name Dose Route Start Last Admin Trade Name Freq PRN Reason Stop Dose Admin Albuterol 2.5 mg 07/26/25 19:49 Albuterol Sulfate Neb 2.5 Mg/3 Ml Inh INHALATION Q6H PRN copd Diltiazem HCl 480 mg 07/27/25 09:00 07/28/25 08:32 Diltiazem Hcl Cd 240 Mg Cap.24hr PO 480 mg DAILY OLIVIA Administration Enoxaparin Sodium 40 mg 07/27/25 09:00 07/28/25 08:31 Enoxaparin 40 Mg/0.4 Ml Syringe SUB-Q 40 mg DAILY OLIVIA Administration Hydrochlorothiazide 12.5 mg 07/27/25 09:00 07/28/25 08:31 Hydrochlorothiazide 12.5 Mg Capsule PO 12.5 mg DAILY OLIVIA Administration Dextrose/Lactated Ringer's 1,000 mls @ 100 mls/hr 07/26/25 13:25 07/28/25 04:12 Dextrose 5%/Lactated Ringers IV CONT 100 mls/hr .Q10H OLIVIA Administration Potassium Chloride/Sodium Chloride 1,000 mls @ 80 mls/hr 07/28/25 07:30 07/28/25 08:39 Kcl 40 Meq/Ns IV CONT 80 mls/hr .[id number] OLIVIA Administration Levothyroxine Sodium 50 mcg 07/27/25 06:30 07/28/25 06:04 Levothyroxine Sodium 50 Mcg Tablet PO 50 mcg DAILY@0630 OLIVIA Administration Losartan Potassium 100 mg 07/27/25 09:00 07/28/25 08:31 Losartan Potassium 100 Mg Tablet PO 100 mg DAILY OLIVIA Administration Meloxicam 15 mg 07/27/25 09:00 07/28/25 08:31 Meloxicam 7.5 Mg Tablet PO 15 mg QAM OLIVIA Administration Metoclopramide HCl 10 mg 07/28/25 06:30 07/28/25 11:44 Metoclopramide Hcl 10 Mg Tablet PO 10 mg AC OLIVIA Administration Mineral Oil 15 ml 07/27/25 09:00 07/28/25 08:30 Mineral Oil 30 Ml Udc PO 15 ml BID OLIVIA Administration Montelukast Sodium 10 mg 07/27/25 09:00 07/28/25 08:32 Montelukast Sodium 10 Mg Tablet PO 10 mg DAILY OLIVIA Administration Breztri Inhaler 1 each 07/28/25 10:30 07/28/25 11:44 Home Med INHALATION 08/27/25 10:29 1 each Q12HRT OLIVIA Administration Ondansetron HCl 4 mg 07/26/25 13:23 07/28/25 13:21 Ondansetron Inj 4 Mg/2 Ml Vial IV PUSH 4 mg Q6H PRN Administration Nausea And Vomiting Pantoprazole Sodium 40 mg 07/27/25 09:00 07/28/25 08:32 Pantoprazole 40 Mg Tablet PO 40 mg DAILY OLIVIA Administration Potassium Chloride 20 meq 07/28/25 20:00 Potassium Chloride 20 Meq Er Tablet PO BIDWM OLIVIA Psyllium Hydrophilic Mucilloid 1 packet 07/27/25 09:00 07/28/25 08:31 Psyllium Powder Packet PO 1 packet BID OLIVIA Administration Rosuvastatin Calcium 10 mg 07/27/25 09:00 07/28/25 08:32 Rosuvastatin 10 Mg Tablet PO 10 mg DAILY OLIVIA Administration Radiology Results: ITS Impressions Abdomen Ultrasound 07/26/25 14:57 IMPRESSION: 1. No acute findings. Upper GI Series 07/26/25 15:18 IMPRESSION: Very limited single contrast exam with the only discrete finding being very tight narrowing of the GE junction. Correlate with surgical history. Stenosis/stricture associated with scar formation possibly present. Gastric Emptying Nuclear Medicine 07/27/25 14:07 IMPRESSION: 1. Delayed gastric emptying with greater than expected activity on the 2 hour images. Abdomen X-Ray 07/28/25 08:15 IMPRESSION: Contrast throughout the large intestine. No evidence of obstruction or large amount of free air. Labs Labs: Laboratory Results - last 24 hr 07/28/25 05:35 WBC 5.4 RBC 3.54 L Hgb 11.3 L Hct 33.5 L MCV 94.6 MCH 31.9 MCHC 33.7 RDW 12.6 Plt Count 195 MPV 8.8 Sodium 134 L Potassium 3.1 L Chloride 102 Carbon Dioxide 30 Anion Gap 2 L BUN < 2 L Creatinine 0.79 Estim Creat Clear Calc 40 Estimated GFR > 60 Glucose 118 H Calcium 8.8
[2025-07-28 16:00] VITALS: BP 105/47; PULSE 56; O2SAT 96
--- NOTE | 2025-07-28 16:31 | WPDGIPROGNO ---
Progress Note: A&P Assessment and Plan (1) Nausea and vomiting: Qualifiers: Vomiting type: unspecified Qualified Code(s): R11.2 - Nausea with vomiting, unspecified Code(s): R11.2 - Nausea with vomiting, unspecified Status: Chronic Assessment and Plan: The patient has the effects of medication use for weight loss, as detailed in previous notes. However, she is doing better slowly and metoclopramide before meals seems to help. Will add Linzess 145 mcg every morning and 2 doses of MiraLax to help constipation. Hopefully she can be advanced to a more consistent diet tomorrow and after discharge, Prucalopride is a good option for her colonic dysmotility. Subjective Date/time seen: 07/28/25 16:31 Interval history: Patient still somewhat nauseated and with constipation. He responded well to magnesium citrate but caused her some bloating and abdominal discomfort. Exam Narrative: Unchanged from yesterday. Objective Data Vital Signs Vital Signs: Vital Signs - 24 hr 07/27/25 20:00 07/28/25 00:00 07/28/25 04:10 Temperature 97.9 F 97.7 F 97.7 F Pulse Rate 67 52 L 54 L Respiratory Rate 16 16 16 Blood Pressure 123/71 112/52 L 99/49 L Pulse Oximetry 96 94 93 Oxygen Delivery 07/28/25 07:47 07/28/25 08:30 07/28/25 12:00 Temperature 98.4 F 97.9 F Pulse Rate 55 L 57 L Respiratory Rate 16 20 Blood Pressure 108/79 141/57 H Pulse Oximetry 95 97 Oxygen Delivery Room Air Intake/Output Intake/Output: Intake & Output 07/25/25 07/26/25 07/27/25 07/28/25 23:59 23:59 23:59 23:59 Intake Total 0 2400 1541.7 Balance 0 2400 1541.7 Meds/Results Medications: Active Medications Generic Name Dose Route Start Last Admin Trade Name Freq PRN Reason Stop Dose Admin Albuterol 2.5 mg 07/26/25 19:49 Albuterol Sulfate Neb 2.5 Mg/3 Ml Inh INHALATION Q6H PRN copd Diltiazem HCl 480 mg 07/27/25 09:00 07/28/25 08:32 Diltiazem Hcl Cd 240 Mg Cap.24hr PO 480 mg DAILY OLIVIA Administration Enoxaparin Sodium 40 mg 07/27/25 09:00 07/28/25 08:31 Enoxaparin 40 Mg/0.4 Ml Syringe SUB-Q 40 mg DAILY OLIVIA Administration Hydrochlorothiazide 12.5 mg 07/27/25 09:00 07/28/25 08:31 Hydrochlorothiazide 12.5 Mg Capsule PO 12.5 mg DAILY OLIVIA Administration Dextrose/Lactated Ringer's 1,000 mls @ 100 mls/hr 07/26/25 13:25 07/28/25 04:12 Dextrose 5%/Lactated Ringers IV CONT 100 mls/hr .Q10H OLIVIA Administration Potassium Chloride/Sodium Chloride 1,000 mls @ 80 mls/hr 07/28/25 07:30 07/28/25 08:39 Kcl 40 Meq/Ns IV CONT 80 mls/hr .[id number] OLIVIA Administration Levothyroxine Sodium 50 mcg 07/27/25 06:30 07/28/25 06:04 Levothyroxine Sodium 50 Mcg Tablet PO 50 mcg DAILY@0630 OLIVIA Administration Linaclotide 145 mcg 07/29/25 06:30 Linaclotide 145 Mcg Capsule PO DAILY@0630 OLIVIA Losartan Potassium 100 mg 07/27/25 09:00 07/28/25 08:31 Losartan Potassium 100 Mg Tablet PO 100 mg DAILY OLIVIA Administration Meloxicam 15 mg 07/27/25 09:00 07/28/25 08:31 Meloxicam 7.5 Mg Tablet PO 15 mg QAM OLIVIA Administration Metoclopramide HCl 10 mg 07/28/25 06:30 07/28/25 11:44 Metoclopramide Hcl 10 Mg Tablet PO 10 mg AC OLIVIA Administration Mineral Oil 15 ml 07/27/25 09:00 07/28/25 08:30 Mineral Oil 30 Ml Udc PO 15 ml BID OLIVIA Administration Montelukast Sodium 10 mg 07/27/25 09:00 07/28/25 08:32 Montelukast Sodium 10 Mg Tablet PO 10 mg DAILY OLIVIA Administration Breztri Inhaler 1 each 07/28/25 10:30 07/28/25 11:44 Home Med INHALATION 08/27/25 10:29 1 each Q12HRT OLIVIA Administration Ondansetron HCl 4 mg 07/26/25 13:23 07/28/25 13:21 Ondansetron Inj 4 Mg/2 Ml Vial IV PUSH 4 mg Q6H PRN Administration Nausea And Vomiting Pantoprazole Sodium 40 mg 07/27/25 09:00 07/28/25 08:32 Pantoprazole 40 Mg Tablet PO 40 mg DAILY OLIVIA Administration Polyethylene Glycol 17 gm 07/28/25 17:00 Polyethylene Glycol 3350 17 Gm Powd.Pack PO BID OLIVIA Potassium Chloride 20 meq 07/28/25 20:00 Potassium Chloride 20 Meq Er Tablet PO BIDWM OLIVIA Psyllium Hydrophilic Mucilloid 1 packet 07/27/25 09:00 07/28/25 08:31 Psyllium Powder Packet PO 1 packet BID OLIVIA Administration Rosuvastatin Calcium 10 mg 07/27/25 09:00 07/28/25 08:32 Rosuvastatin 10 Mg Tablet PO 10 mg DAILY OLIVIA Administration Radiology Results: ITS Impressions Abdomen Ultrasound 07/26/25 14:57 IMPRESSION: 1. No acute findings. Upper GI Series 07/26/25 15:18 IMPRESSION: Very limited single contrast exam with the only discrete finding being very tight narrowing of the GE junction. Correlate with surgical history. Stenosis/stricture associated with scar formation possibly present. Gastric Emptying Nuclear Medicine 07/27/25 14:07 IMPRESSION: 1. Delayed gastric emptying with greater than expected activity on the 2 hour images. Abdomen X-Ray 07/28/25 08:15 IMPRESSION: Contrast throughout the large intestine. No evidence of obstruction or large amount of free air. Labs Labs: Laboratory Results - last 24 hr 07/28/25 05:35 WBC 5.4 RBC 3.54 L Hgb 11.3 L Hct 33.5 L MCV 94.6 MCH 31.9 MCHC 33.7 RDW 12.6 Plt Count 195 MPV 8.8 Sodium 134 L Potassium 3.1 L Chloride 102 Carbon Dioxide 30 Anion Gap 2 L BUN < 2 L Creatinine 0.79 Estim Creat Clear Calc 40 Estimated GFR > 60 Glucose 118 H Calcium 8.8
[2025-07-28] MEDS: POTASSIUM CHLORIDE 20 MEQ ER TABLET PO (19:49)
[2025-07-28 20:00] VITALS: BP 127/81; PULSE 77; RESP 16; TEMP 36.8; O2SAT 95
[2025-07-29 00:45] VITALS: BP 108/53; PULSE 57; RESP 16; TEMP 36.6; O2SAT 93
[2025-07-29 04:02] VITALS: BP 105/48; PULSE 58; RESP 14; TEMP 36.6; O2SAT 97
[2025-07-29] MEDS: LINACLOTIDE 145 MCG CAPSULE PO (05:16)
[2025-07-29] MEDS: KCL 40 MEQ/0.9% SOD CHL 1,000 ML 80 ML IV CONT (05:16)
[2025-07-29] MEDS: LEVOTHYROXINE SODIUM 50 MCG TABLET PO (05:16)
[2025-07-29] MEDS: METOCLOPRAMIDE HCL 10 MG TABLET PO ×3 (05:16→16:45)
[2025-07-29 05:38] LABS: Hematocrit 34.1 % (37.0-47.0); Hemoglobin 11.3 g/dL (12.0-15.0); Mean Corpuscular HGB Conc 33.1 g/dl (32-36); Mean Corpuscular Hemoglobin 31.6 pg (26-34); Mean Corpuscular Volume 95.3 fl (80-100); Platelet Count Result 209 k/mm3 (150-375); Red Blood Count 3.58 M/mm3 (4.2-5.4); White Blood Count 3.0 K/mm3 (4.5-10.0)
[2025-07-29 06:02] LABS: Anion Gap 0 mmol/L (4-12); Calcium 8.6 mg/dL (8.4-10.2); Carbon Dioxide 26 mmol/L (22-30); Chloride 111 mmol/L (98-107); Estimated CRCL calculation 43 ml/min; Estimated Glomerular Filt Rate > 60; Glucose 85 mg/dL (65-110); Potassium 4.1 mmol/L (3.4-5.0); Sodium 137 mmol/L (137-145)
[2025-07-29 06:07] LABS: Blood Urea Nitrogen < 2 mg/dL (7-17)
[2025-07-29] MEDS: dilTIAZem HCL CD 240 MG CAP.24HR 480 MG PO (08:20)
[2025-07-29] MEDS: POTASSIUM CHLORIDE 20 MEQ ER TABLET PO (08:20)
[2025-07-29] MEDS: MONTELUKAST SODIUM 10 MG TABLET PO (08:20)
[2025-07-29] MEDS: PANTOPRAZOLE 40 MG TABLET PO (08:20)
[2025-07-29] MEDS: ROSUVASTATIN 10 MG TABLET PO (08:20)
[2025-07-29] MEDS: MELOXICAM 7.5 MG TABLET 15 MG PO (08:20)
[2025-07-29] MEDS: ENOXAPARIN 40 MG/0.4 ML SYRINGE SUB-Q (08:21)
[2025-07-29] MEDS: LOSARTAN POTASSIUM 100 MG TABLET PO (08:21)
--- NOTE | 2025-07-29 09:04 | P.PNIM_ITS ---
Assessment and Plan Assessment and Plan (1) Intractable vomiting with nausea: Code(s): R11.2 - Nausea with vomiting, unspecified Status: Acute Assessment and Plan: The patient presents to [facility] as a direct admission on 07/26 with intractable dysgeusia, anorexia, weight loss, and worsening constipation x5-6 weeks. Initial concern recurrent hiatal hernia was etiology for patient's symptoms. However general surgery reviewed and it remains unchanged radiographically. CT scan from 07/23/2025 showed mild gallbladder distension. Concern now for biliary or other GI causes for her current symptoms. GI consulted. General surgery primary. Prior Studies: * EGD (07/02/25):?Unremarkable. * CT scan (07/23/25):?Reviewed with?Dr. Loza; compared to prior CT from March 2024?no change or possibly a smaller hiatal hernia. * Water-soluble upper GI:?very tight narrowing of GE junction. * Gallbladder ultrasound (07/26/25):?Normal gallbladder, no stones. * CT scan (07/23/25):?Mild gallbladder distention, otherwise normal. * bowel regimen per surgery recs * s/p IV fluids * monitor labs, currently stable with no significant renal dysfunction or electrolyte abnormalities * continue pantoprazole and Carafate * Gastric emptying study: demonstrated delayed gastric emptying during the first and second hour, however after 4 hours the gastric emptying normalized * GI consulted: recommend initiating metoclopramide 10 mg TID before meals for an estimated [id number]-[id number]-week course * Attempt normal diet today (2) History of repair of hiatal hernia: Code(s): Z98.890 - Other specified postprocedural states; Z87.19 - Personal history of other diseases of the digestive system Status: Acute Assessment and Plan: Patient has history of open paraesophageal hiatal hernia repair in 2009. She has since for had recurrence of a hiatal hernia, however currently appears unchanged when compared to previous studies. * general surgery primary (3) Abnormal findings on diagnostic imaging of gallbladder: Code(s): R93.2 - Abnormal findings on diagnostic imaging of liver and biliary tract Status: Acute Assessment and Plan: CT from 07/23 showed gallbladder distension. Right upper quadrant ultrasound performed today, 07/26, and it showed a mildly distended gallbladder with no stones/wall thickening/pericholecystic fluid and had a negative Srinivasan sign. * GI consulted (4) Constipation: Qualifiers: Constipation type: unspecified constipation type Qualified Code(s): K59.00 - Constipation, unspecified Code(s): K59.00 - Constipation, unspecified Status: Acute Assessment and Plan: Awaiting initial test results prior to giving the bowel stimulation, however being closely monitored. Upper GI series performed today (07/26) which may be therapeutic for constipation. She was then placed on Metamucil a tbsp b.i.d. as well as mineral oil 1 tbsp b.i.d. via the service to start the process of eradicating the retained stool in her colon. * Metamucil tbsp b.i.d. * mineral oil 1 tbsp b.i.d. * further plan of care dependent on GI recommendations (5) Hiatal hernia: Code(s): K44.9 - Diaphragmatic hernia without obstruction or gangrene Status: Chronic Assessment and Plan: * imaging reviewed by general surgery and believes the hiatal hernia is relatively unchanged. * Upper GI a series completed, awaiting review by the surgical team. However they note if she were to have a volvulus or obstruction related to her recurrent hiatal hernia, she would likely require transfer to a tertiary care center for surgical intervention as this has been a recurrence. (6) Benign essential hypertension: Code(s): I10 - Essential (primary) hypertension Status: Chronic Assessment and Plan: * chronic, currently 115/53, stable. * continue home medications: HCTZ, losartan, diltiazem * monitor (7) Hyperlipidemia: Qualifiers: Hyperlipidemia type: unspecified Qualified Code(s): E78.5 - Hyperlipidemia, unspecified Code(s): E78.5 - Hyperlipidemia, unspecified Status: Chronic Assessment and Plan: * continue rosuvastatin 10 mg daily (8) COPD (chronic obstructive pulmonary disease): Qualifiers: COPD type: emphysema Emphysema type: unspecified Qualified Code(s): J43.9 - Emphysema, unspecified Code(s): J44.9 - Chronic obstructive pulmonary disease, unspecified Status: Acute Assessment and Plan: * No current evidence of asthma/COPD exacerbation * continue home medications: Singulair, albuterol p.r.n., airsupra daily Plan Diet: NPO GI Prophylaxis: Pantoprazole DVT Prophylaxis: SCDs, Lovenox IV fluids: D5/LR at 100 mL/hour Lines/Tubes: pIV Code Status: Full code Subjective Date/time seen: 07/29/25 09:04 Interval history: Patient seen and examined at bedside. Nausea continues to improved. Denies abdominal pain. Able eat half a sandwich today without difficulty. Likely able to be discharged today by primary service (general surgery) Review of Systems Review of Systems: All systems reviewed & are unremarkable except as noted in HPI and below Exam Narrative: General: NAD Eyes: EOMI ENT: neck supple Cardiovascular: Regular rate and rhythm Respiratory: Clear to auscultation, respirations even and unlabored on RA Gastrointestinal: Soft, non tender Genitourinary: no suprapubic tenderness Musculoskeletal: No edema Skin: warm, dry Neuro: Alert. Psych: Mood appropriate Const: General: comfortable and no acute distress Other: , female, nontoxic appearance HENMT: Face/Nose/Sinus: Normal nares present Mouth: Yes moist mucous membranes Eyes: General: appearance normal, both eyes and all related structures Sclera: sclerae normal Pupils: Equal, round and reactive pupils present EOM: EOMs intact bilaterally Resp: Effort & Inspection: normal respiratory effort Auscultation: clear to auscultation bilaterally Cardio: Rate: regular rate Rhythm: regular rhythm Other: S1-S2 present without murmur, rub, ectopy GI: Other: Abdomen soft and nondistended. Hyperactive bowel sounds in all quadrants. No tenderness on exam. Skin: General skin exam: normal color and no rashes or lesions noted Wounds: no wounds Neuro: Cranial nerves: Yes Equal, round and reactive pupils present Speech: normal speech Motor exam (neuro): 5/5 motor strength present throughout Sensory Exam: normal sensation Other: A&O x4 Extrem: General: normal to inspection Psych: Mental Status: mental status grossly normal Affect: normal affect Other: Good insight and judgment, very pleasant Objective Data Vital Signs Vital Signs: Vital Signs - 24 hr 07/28/25 12:00 07/28/25 16:00 07/28/25 20:00 Temperature 97.9 F 98.3 F Pulse Rate 57 L 56 L 77 Respiratory Rate 20 16 Blood Pressure 141/57 H 105/47 L 127/81 Pulse Oximetry 97 96 95 07/29/25 00:45 07/29/25 04:02 Temperature 97.8 F 97.8 F Pulse Rate 57 L 58 L Respiratory Rate 16 14 Blood Pressure 108/53 L 105/48 L Pulse Oximetry 93 97 Intake/Output Intake/Output: Intake & Output 07/26/25 07/27/25 07/28/25 07/29/25 23:59 23:59 23:59 23:59 Intake Total 0 2400 2985.0 1106 Balance 0 2400 2985.0 1106 Meds/Results Medications: Active Medications Generic Name Dose Route Start Last Admin Trade Name Freq PRN Reason Stop Dose Admin Albuterol 2.5 mg 07/26/25 19:49 Albuterol Sulfate Neb 2.5 Mg/3 Ml Inh INHALATION Q6H PRN copd Diltiazem HCl 480 mg 07/27/25 09:00 07/29/25 08:20 Diltiazem Hcl Cd 240 Mg Cap.24hr PO 480 mg DAILY OLIVIA Administration Enoxaparin Sodium 40 mg 07/27/25 09:00 07/29/25 08:21 Enoxaparin 40 Mg/0.4 Ml Syringe SUB-Q 40 mg DAILY OLIVIA Administration Hydrochlorothiazide 12.5 mg 07/27/25 09:00 07/29/25 08:20 Hydrochlorothiazide 12.5 Mg Capsule PO 12.5 mg DAILY OLIVIA Administration Levothyroxine Sodium 50 mcg 07/27/25 06:30 07/29/25 05:16 Levothyroxine Sodium 50 Mcg Tablet PO 50 mcg DAILY@0630 OLIVIA Administration Linaclotide 145 mcg 07/29/25 06:30 07/29/25 05:16 Linaclotide 145 Mcg Capsule PO 145 mcg DAILY@0630 OLIVIA Administration Losartan Potassium 100 mg 07/27/25 09:00 07/29/25 08:21 Losartan Potassium 100 Mg Tablet PO 100 mg DAILY OLIVIA Administration Meloxicam 15 mg 07/27/25 09:00 07/29/25 08:20 Meloxicam 7.5 Mg Tablet PO 15 mg QAM OLIVIA Administration Metoclopramide HCl 10 mg 07/28/25 06:30 07/29/25 05:16 Metoclopramide Hcl 10 Mg Tablet PO 10 mg AC OLIVIA Administration Mineral Oil 15 ml 07/27/25 09:00 07/28/25 17:07 Mineral Oil 30 Ml Udc PO 15 ml BID OLIVIA Administration Montelukast Sodium 10 mg 07/27/25 09:00 07/29/25 08:20 Montelukast Sodium 10 Mg Tablet PO 10 mg DAILY OLIVIA Administration Breztri Inhaler 1 each 07/28/25 10:30 07/28/25 20:02 Home Med INHALATION 08/27/25 10:29 1 each Q12HRT OLIVIA Administration Ondansetron HCl 4 mg 07/26/25 13:23 07/28/25 13:21 Ondansetron Inj 4 Mg/2 Ml Vial IV PUSH 4 mg Q6H PRN Administration Nausea And Vomiting Pantoprazole Sodium 40 mg 07/27/25 09:00 07/29/25 08:20 Pantoprazole 40 Mg Tablet PO 40 mg DAILY OLIVIA Administration Polyethylene Glycol 17 gm 07/28/25 17:00 07/28/25 17:07 Polyethylene Glycol 3350 17 Gm Powd.Pack PO 17 gm BID OLIVIA Administration Potassium Chloride 20 meq 07/29/25 09:00 07/29/25 08:20 Potassium Chloride 20 Meq Er Tablet PO 20 meq DAILY OLIVIA Administration Psyllium Hydrophilic Mucilloid 1 packet 07/27/25 09:00 07/28/25 17:07 Psyllium Powder Packet PO 1 packet BID OLIVIA Administration Rosuvastatin Calcium 10 mg 07/27/25 09:00 07/29/25 08:20 Rosuvastatin 10 Mg Tablet PO 10 mg DAILY OLIVIA Administration Radiology Results: ITS Impressions Abdomen Ultrasound 07/26/25 14:57 IMPRESSION: 1. No acute findings. Upper GI Series 07/26/25 15:18 IMPRESSION: Very limited single contrast exam with the only discrete finding being very tight narrowing of the GE junction. Correlate with surgical history. Stenosis/stricture associated with scar formation possibly present. Gastric Emptying Nuclear Medicine 07/27/25 14:07 IMPRESSION: 1. Delayed gastric emptying with greater than expected activity on the 2 hour images. Abdomen X-Ray 07/29/25 08:05 IMPRESSION: Interval passage of contrast with no evidence of obstruction. Several loops of gaseous dilated bowel throughout the abdomen and pelvis with nonspecific bowel gas pattern. Labs Labs: Laboratory Results - last 24 hr 07/29/25 05:16 WBC 3.0 L RBC 3.58 L Hgb 11.3 L Hct 34.1 L MCV 95.3 MCH 31.6 MCHC 33.1 RDW 12.8 Plt Count 209 MPV 9.2 Sodium 137 Potassium 4.1 Chloride 111 H Carbon Dioxide 26 Anion Gap 0 L BUN < 2 L Creatinine 0.74 Estim Creat Clear Calc 43 Estimated GFR > 60 Glucose 85 Calcium 8.6 Quality VTE Prophylaxis VTE prophylaxis: mechanical ordered
--- NOTE | 2025-07-29 10:35 | P.DS_ITS ---
DS: Admitting Diagnosis Discharge Date 07/29/25 Admitting Diagnosis * dysgeusia--unable to eat * vomiting of mucous * constipation * GLP1 use * weight loss * dehydration DS: Discharge Diagnosis Discharge Diagnosis (1) Gastroparesis: Code(s): K31.84 - Gastroparesis Status: Acute Assessment and Plan: Likely due as a prolonged side effect from her as at bound (2) Dysgeusia: Code(s): R43.2 - Parageusia Status: Acute Assessment and Plan: Improved by discharge. Probably due to extreme constipation and stool retention (3) Hiatal hernia: Code(s): K44.9 - Diaphragmatic hernia without obstruction or gangrene Status: Chronic Assessment and Plan: Recurrent (4) History of repair of hiatal hernia: Code(s): Z98.890 - Other specified postprocedural states; Z87.19 - Personal history of other diseases of the digestive system Status: Chronic Assessment and Plan: Large paraesophageal hiatal hernia repaired open in 2009. (5) Nausea and vomiting: Qualifiers: Vomiting type: unspecified Qualified Code(s): R11.2 - Nausea with vomiting, unspecified Code(s): R11.2 - Nausea with vomiting, unspecified Status: Chronic Assessment and Plan: Emesis is white or clear consistent with mucous-impaired esophageal motility from these at bound is 1 possible reason. Intermittent partial obstruction of her recurrent hiatal hernia is another possibility. No emesis while she was in the hospital. (6) Constipation: Qualifiers: Constipation type: unspecified constipation type Qualified Code(s): K59.00 - Constipation, unspecified Code(s): K59.00 - Constipation, unspecified Status: Chronic Assessment and Plan: Have been going on for fiber 6 weeks. Little or no bowel function during that time. Laxatives administered this admission and patient having bowel movements by discharge. DS: Summary Hospital Course Hospital Course: Patient had open repair of a very large paraesophageal hiatal hernia in 2009. She had a recurrent hiatal hernia about 5 years after the surgery but much smaller and reflux symptoms controlled with acid reducing medication. The original surgery was done for the indication of shortness of breath. I had not seen her for quite some time but was called today by Dr. Daniels as she has been having problems that could be related to her recurrent hiatal hernia. Patient relates that she has had life tunnel long problems with chronic constipation. She had COVID last spring and influenza a last September. Her COVID symptoms had been gone for at least 6 weeks. She noted in the middle of February that she had a terrible taste in her mouth when trying to eat. This lasted a few days and then just went away. Six weeks ago, she started having more severe problems with constipation and relates that for the last 5 weeks she has literally not had a single normal bowel movement-only small dry balls of stool intermittently. This is much worse than her usual problems with constipation. Prior to that, in early May, she started on Zepbound for weight loss. She lost about 30 lb and was only on the medication for a little over 3 weeks. She stopped the medication because the horrible taste in her mouth returned and she thought it may be due to the medication. Unfortunately, after stopping, the terrible taste did not go away. She cannot eat primarily because food tastes so bad. In her mouth it tastes bad and then swallowing it just makes her want to gag. She has lost more weight and even has this sensation sometimes with water. Patient also reports vomiting, but this emesis is not yellow or green but only white for clear suggested above mucous emesis. I suspect this is due to some mucus in trap min in her hiatal hernia. This mucous emesis is not the reason that she does not meet, she does not eat because of the horrible taste that she can stand to eat. She had an EGD 07/02/2025 which was unremarkable. She was directly admitted today, 07/26/2025, and has already had a water-soluble upper GI. She was in the emergency room on 07/23/[address] scan. I reviewed both of these studies with Dr. Loza, being suspicious that gastric obstruction associated with the recurrent hiatal hernia may be the cause of her vomiting. We looked at both studies thoroughly and compared this upper GI to 1 done in 2015-there was really no difference. The CT scan was compared to a CT from March of 2024 and the hiatal hernia is really unchanged. If anything, hiatal hernia looks smaller than it did in March of 2024. Patient asked about possible gallbladder disease as she had a friend/relative who developed gallbladder disease after being on a GLP1 agonist. She had an ultrasound today which did not show gallstones and showed a normal gallbladder. Her CT scan showed some mild gallbladder distention but no stones or any other signs of abnormality. From upper GI testing and CT scan done 3 days prior to admission, it did not seem that she was vomiting due to gastric obstruction from her recurrent hiatal hernia. Gastroenterology was consulted and Dr. Cazares saw the patient. He felt she was suffering from prolonged side effects from the Zepbound she had been taking in May. A gastric emptying test was performed which confirmed early delayed gastric emptying. She was started on Reglan with plans to possibly began additional prokinetic medications as an outpatient. Patient was also started on Metamucil and mineral oil twice a day on admission. She had bowel movements 07/27 after her upper GI with water-soluble contrast. Plain films on 07/28/2025 showed that she still had contrast throughout her colon with significant residual stool. She was still on the Metamucil and mineral oil. She was also given 300 cc of magnesium citrate on 07/28/2025. In addition, she was started on MiraLax. She had multiple bowel movements both on 07/28 and today, 07/29/2025. She tolerated full liquids and then a regular diet on the day of discharge. She was started on Linzess while still in the hospital. Her Metamucil and mineral oil were discontinued. I talked with her primary care physician, Dr. Octavio Daniels, on the day of discharge. Patient is feeling much better and will follow up with and Dr. Daniels. Status at Discharge Overall status at discharge: patient is progressing back to baseline Time Spent with Patient Time attestation: Total time spent providing and/or coordinating discharge services: Time spent: Less than 30 minutes DS: Data Data Completed and Pending Labs on day of discharge: Labs from last 24 hours 07/29/25 05:16 WBC 3.0 L RBC 3.58 L Hgb 11.3 L Hct 34.1 L MCV 95.3 MCH 31.6 MCHC 33.1 RDW 12.8 Plt Count 209 MPV 9.2 Sodium 137 Potassium 4.1 Chloride 111 H Carbon Dioxide 26 Anion Gap 0 L BUN < 2 L Creatinine 0.74 Estim Creat Clear Calc 43 Estimated GFR > 60 Glucose 85 Calcium 8.6 Discharge Plan Discharge Attending physician on discharge: Jaylon Garcia Consulting providers: Gretta Espinosa; Grace Singh; Herbie Garcia; Neri Cazares Discharging Clinician: Jaylon Garcia Anticipated Discharge Date/Time: 07/29/25 17:00 Patient Disposition: Home Activity: may shower and as tolerated Diet: as tolerated and regular Discharge Instructions: * Call to schedule a follow-up appointment with Dr. Cazares in his office for 2 weeks from now. * Linzess prescription already sent to the pharmacy by Dr. Cazares * Decrease the dose of your pantoprazole (Protonix) to once a day, not twice a day. * Stop the Sucralfate * Metaclopramide (Reglan) prescription sent to your pharmacy--take it 3 times pe r day with meals * Take polyethylene glycol (Miralax) daily at home Patient Instructions: Antibiotic Form Patient Language: Belarusian Stand Alone Forms: General Discharge Information Follow-up/Referrals: Octavio Daniels MD [Primary Care Provider, Internal Medicine] - Keep Reg. Scheduled Appt. Neri Cazares MD [Physician, Gastroenterology] - 2 Weeks Referral Note: Call Dr. Cazares's office for appointment Discharge Medications: New polyethylene glycol 3350 [Miralax] 17 gram Powder In Packet 17 g PO DAILY Qty: 14 0RF pantoprazole 40 mg Tablet,Delayed Release (Dr/Ec) 40 mg PO DAILY Qty: 30 0RF metoclopramide HCl [Reglan] 10 mg Tablet 10 mg PO AC Qty: 90 0RF Continued benzonatate 200 mg capsule 200 mg PO TID PRN (Reason: cough) Qty: 30 0RF albuterol sulfate 2.5 mg /3 mL (0.083 %) solution for nebulization 2.5 mg inhalation Q6H PRN (Reason: copd) Qty: 90 3RF meloxicam 15 mg tablet See Rx Instructions .ROUTE .COMPLEX Qty: 90 0RF Dose Instruction: Take 1 tablet by mouth once daily Rx Instructions: Take 1 tablet by mouth once daily (DME) flutter valve See Rx Instructions .Route .MEDSUPPLY Qty: 1 0RF Rx Instructions: As directed Airsupra 90-80 mcg/actuation HFA aerosol inhaler 2 inh inhalation ONCE Rx Instructions: as a single dose; may repeat up to 6 doses per day (12 inhalations) (DME) Home Nebulizer machine See Rx Instructions .Route .MEDSUPPLY Qty: 1 0RF Rx Instructions: As directed montelukast [Singulair] 10 mg tablet 10 mg PO DAILY Qty: 90 4RF hydrochlorothiazide 12.5 mg tablet 12.5 mg PO DAILY Qty: 90 1RF losartan 100 mg tablet See Rx Instructions .ROUTE .COMPLEX Qty: 90 1RF Dose Instruction: Take 1 tablet by mouth once daily Rx Instructions: Take 1 tablet by mouth once daily diltiazem HCl 240 mg capsule,extended release 24 hr See Rx Instructions .ROUTE .COMPLEX Qty: 180 1RF Dose Instruction: Take 2 capsules by mouth once daily Rx Instructions: Take 2 capsules by mouth once daily levothyroxine 50 mcg tablet See Rx Instructions .ROUTE .COMPLEX Qty: 90 1RF Dose Instruction: Take 1 tablet by mouth once daily Rx Instructions: Take 1 tablet by mouth once daily rosuvastatin 10 mg tablet See Rx Instructions .ROUTE .COMPLEX Qty: 90 0RF Dose Instruction: Take 1 tablet by mouth once daily Rx Instructions: Take 1 tablet by mouth once daily ondansetron HCl 8 mg tablet 8 mg PO Q8H PRN (Reason: nausea and vomiting) Qty: 90 1RF Linzess 145 mcg capsule 145 mcg PO QAM 30 Days Qty: 30 3RF Discontinued pantoprazole 40 mg tablet,delayed release (DR/EC) See Rx Instructions .ROUTE .COMPLEX Qty: 180 3RF Dose Instruction: TAKE 1 TABLET BY MOUTH ONCE DAILY IN THE MORNING Rx Instructions: TAKE 1 TABLET BY MOUTH TWICE DAILY IN THE MORNING sucralfate 1 gram tablet 1 g PO BID Qty: 60 0RF Rx Instructions: Dissolve one tablet in water twice daily Date of admission: 07/26/25 13:19 Primary Care Provider: Octavio Daniels Admitting Provider: Jaylon Garcia Attending physician on admission: Jaylon Garcia Condition: Improved
[2025-07-29 10:40] VITALS: BP 117/55; PULSE 55; RESP 18; TEMP 36.3; O2SAT 96
[2025-07-29 14:07] VITALS: BP 102/49; PULSE 53; RESP 18; TEMP 36.1; O2SAT 95
== END 2025-07-29 17:05 | disposition home or self-care (01) ==
PROVIDERS: Admitting Provider Surgery; PCP Internal Medicine; Visit Provider Surgery
DX: K31.84 Gastroparesis (principal); R11.2 Nausea with vomiting, unspecified; R43.2 Parageusia; K59.09 Other constipation; R93.2 Abnormal findings on diagnostic imaging of liver and biliary tract; K44.9 Diaphragmatic hernia without obstruction or gangrene; I10 Essential (primary) hypertension; E03.9 Hypothyroidism, unspecified; E78.5 Hyperlipidemia, unspecified; J43.9 Emphysema, unspecified; R05.9 Cough, unspecified; M15.9 Polyosteoarthritis, unspecified; R91.1 Solitary pulmonary nodule; M47.894 Other spondylosis, thoracic region; E55.9 Vitamin D deficiency, unspecified; J32.0 Chronic maxillary sinusitis; Z79.1 Long term (current) use of non-steroidal anti-inflammatories (NSAID); Z87.891 Personal history of nicotine dependence; Z87.19 Personal history of other diseases of the digestive system; Z90.49 Acquired absence of other specified parts of digestive tract; Z98.890 Other specified postprocedural states
CPT/HCPCS: 36415; 74018; 74240; 76705; 78264; 80048; 80053; 81001; 83605; 85025; 85027; 87086; 94640; 96361; 96365; 96366; 96372; 96375; 96376; A9270; A9541; G0378; J1650; J2405; J7121